=== PATIENT | female | born 1975 | race Caucasian/White ===

== ENCOUNTER 2022-11-23 21:02 | Emergency (ER) | payer MEDICAID, SELFPAY ==
[2022-11-23 21:03] VITALS: BP 131/99; PULSE 82; RESP 16; TEMP 36.6; O2SAT 99; BMI 27.0
--- NOTE | 2022-11-23 21:17 | CT_ITS ---
INDICATION: right sided abd pain EXAMINATION: CT Abdomen And Pelvis W/O Contrast Injection TECHNIQUE: Helically acquired images were obtained of the abdomen and pelvis without the use of IV contrast. A radiation dose optimization technique was used for this scan. Oral contrast: None. COMPARISON: None FINDINGS: Evaluation of the solid organs and vascular structures is limited without intravenous contrast. Visualized lung bases: Unremarkable Liver: Unremarkable Gallbladder: Few small intraluminal stones seen. Spleen: Unremarkable Pancreas: Unremarkable Adrenal Glands: Unremarkable Kidneys: Unremarkable Vasculature: Unremarkable GI Tract: Mild fat stranding surrounding the stomach. Lymphadenopathy: None Peritoneum: No ascites. Bladder: Unremarkable Reproductive organs: Unremarkable Bones/Soft tissues: Small fat-containing umbilical hernia. CT/Abdomen/Pelvis without Cont IMPRESSION: Findings could represent acute gastritis in the correct clinical setting. Cholelithiasis. Electronically Signed: Pranav Rodriguez MD at 22:07 EDT ,
--- NOTE | 2022-11-23 21:19 | EDS_ITS ---
HPI History of Present Illness Chief Complaint: Abd Pain Informant: patient Onset/Context/Timing Onset: - (Chronic pain, worse recently) Context: Gradual Onset Timing: Waxes and wanes Narrative Narrative: Patient presents secondary to right sided abdominal pain. She points to the right upper quadrant. She states she is had pain intermittently for years but recently has been getting worse. She feels like the area gets puffy. She reports a history of diabetes type 2 and follows with endocrinology at [facility]. She states that she is never had a work-up for her abdominal pain. She has had a prior hysterectomy. No other prior surgeries. No fever or chills. She states she is only able to eat small amounts at a time because she is worried about her blood sugar getting too high. [facility] Medical History Diabetes Home Medications dulaglutide 0.75 mg/0.5 mL subcutaneous pen injector (Trulicity) 0.75 mg subcut SA 11/23/22 [History Last Taken Unknown] insulin aspart U-100 100 unit/mL (3 mL) subcutaneous pen (Novolog FlexPen U-100 Insulin aspart) 2 unit subcut TID 11/23/22 [History Last Taken Unknown] insulin glargine 100 unit/mL (3 mL) subcutaneous pen (Lantus Solostar U-100 Insulin) 14 unit subcut QHS 11/23/22 [History Last Taken Unknown] metformin 500 mg tablet 1,000 mg PO BID 11/23/22 [History Last Taken Unknown] pantoprazole 40 mg tablet,delayed release (Protonix) 40 mg PO DAILY 4 weeks #28 tabs 11/23/22 [Rx Last Taken Unknown] Allergy/AdvReac Type Severity Reaction Status Date / Time No Known Allergies Allergy Verified 11/23/22 21:05 Surgical History History of hysterectomy Social History Smoking Status: Current some day smoker tobacco type: cigarettes and e- cigarettes ROS ROS ED Constitutional Constitutional ED: Denies chills or fever(s) Eyes Eyes: Denies change in vision or discharge from eye(s) ENT ENT ED: Denies discharge from eye(s), rhinorrhea or sore throat Cardiovascular Cardiovascular: Denies chest pain or palpitations Respiratory/Chest Respiratory/Chest: Denies cough or dyspnea Gastrointestinal Gastrointestinal: Reports abdominal pain and constipation; Denies diarrhea, nausea or vomiting Genitourinary Genitourinary ED: Denies dysuria Musculoskeletal Musculoskeletal: Denies back pain or extremity pain Integumentary Denies Abrasions or rash Neurologic Neurologic: Denies headache(s) or weakness Psychiatric Psychiatric: Denies anxiety or depression Allergic/Immunologic Allergic/Immunologic ED: Denies lip swelling or urticaria EXAM Physical Exam Const Vital Signs: 11/23/22 21:03 Temperature 97.8 F Temperature Source Temporal Pulse Rate 82 Respiratory Rate 16 Blood Pressure 131/99 H Blood Pressure Mean 109 Pulse Ox 99 Oxygen Delivery Method Room Air Positive well nourished and well developed General Appearance ED: well developed HEENT Reports normocephalic and head/scalp atraumatic Eyes PERRL and EOMs intact bilaterally Neck supple Chest Wall inspection of chest normal and palpation of chest normal Resp normal respiratory effort and clear to auscultation bilaterally Cardio regular rate and regular rhythm GI GI Narrative: Mild epigastric tenderness palpation. No guarding or rebound. Active bowel sounds noted throughout. Palpation: soft Extremity normal to inspection Neuro oriented x3 and no sensory deficits noted Sensorium / Orientation: alert Motor Exam: strength 5/5 throughout Psych mental status grossly normal Skin no rashes or lesions noted MDM MDM MDM Narrative Medical decision making narrative: Labwork obtained to evaluate for leukocytosis, anemia, and electrolyte derangement. CT scan of the abdomen pelvis obtained to evaluate for liver, gallbladder, colonic abnormality. Lab Data Attestation: I reviewed the patient's lab results. Labs: Laboratory Results - last 24 hr 11/23/22 11/23/22 11/23/22 21:20 21:20 21:20 WBC 7.7 RBC 4.43 Hgb 13.5 Hct 41.6 MCV 93.9 MCH 30.5 MCHC 32.5 RDW Std Deviation 45.4 H RDW Coeff of Azc 13.2 Plt Count 358 MPV 9.5 Immature Gran % (Auto) 0.100 Neut % (Auto) 53.8 Lymph % (Auto) 39.5 [place] % (Auto) 5.6 Eos % (Auto) 0.6 Baso % (Auto) 0.4 Absolute Neuts (auto) 4.2 Absolute Lymphs (auto) 3.05 Nucleated RBC % 0 Sodium 137 Potassium 4.5 Chloride 104 Carbon Dioxide 22.0 Anion Gap 11 BUN 10 Creatinine 0.68 Estim Creat Clear Calc 99.19 Est GFR (MDRD) Af Amer 119 Est GFR (MDRD) Non-Af 98 BUN/Creatinine Ratio 14.6 Glucose 105 Calcium 9.9 Total Bilirubin 0.40 Direct Bilirubin < 0.05 AST 22 ALT 17 Alkaline Phosphatase 36 L Total Protein 7.1 Albumin 3.6 Globulin 3.5 Lipase 38 Urine Color Straw Urine Clarity Clear Urine pH 7.0 Ur Specific [place] 1.005 Urine Protein Negative Urine Glucose (UA) Normal Urine Ketones Negative Urine Occult Blood Negative Urine Nitrite Negative Urine Bilirubin Negative Urine Urobilinogen Normal Ur Leukocyte Esterase Negative Urine RBC 0 SEEN Urine WBC 0 SEEN Ur Squamous Epith Cells 0-5 SEEN Urine Bacteria 0 SEEN Urine Mucus 0 SEEN Radiography Diagnostic Testing: Clinical Impression(s) from Imaging Studies Abdomen/Pelvis CT 11/23/22 21:17 IMPRESSION: Findings could represent acute gastritis in the correct clinical setting. Cholelithiasis. Electronically Signed: Pranav Rodriguez MD at 22:07 EDT , Differential Diagnosis Abdominal Pain: Cholecystitis Reason(s) Cholecystitis less likely: clinical exam does not support and other (Small gallstones noted on imaging studies but no evidence of inflammation.) and Pancreatitis Reason(s) Pancreatitis less likely: NL lab values Treatment and Re-Evaluation :: CBC and chemistry studies are unremarkable. LFTs are normal. Lipase is normal. Urinalysis reveals no evidence of acute infection. CT scan of the abdomen and pelvis reveals evidence of acute gastritis with inflammation around the stomach. Cholelithiasis noted without wall thickening or gallbladder inflammation. Repeat evaluation patient resting comfortably. Test results were discussed with her. She is not currently on any antacids. I will start her on Protonix and refer her to GI for follow-up. Discharge Plan Triage Chief Complaint: Abd Pain ED Provider: Vibha Hylton Dx/Rx/DC Orders Clinical Impression: Gastritis Instructions: ED Gastritis (Adult) Prescriptions: New pantoprazole [Protonix] 40 mg tablet,delayed release (DR/EC) 40 mg PO DAILY 28 Days Qty: 28 0RF No Action metformin 500 mg Tablet 1,000 mg PO BID insulin aspart U-100 [Novolog FlexPen U-100 Insulin] 100 unit/mL (3 mL) Insulin Pen 2 unit SUBCUT TID insulin glargine [Lantus Solostar U-100 Insulin] 100 unit/mL (3 mL) Insulin Pen 14 unit SUBCUT QHS Trulicity 0.75 mg/0.5 mL Pen Injector 0.75 mg SUBCUT SA Primary Care Provider: Care Physician,No Primary Referrals: Friend,William, DO [Med Staff - Active Staff] - As Needed NOT,DEFINED [Non-Staff] - Disposition Disposition: Home, Self Care
[2022-11-23 21:26] LABS: Bacteria 0 SEEN /hpf (None Seen); Mucous, Urine 0 SEEN /hpf (<or=2+); Red Blood Cells-Urine 0 SEEN /hpf (0-5); White Blood Cells 0 SEEN /hpf (0-5)
[2022-11-23 21:27] LABS: Absolute Lymphocyte Count 3.05 X10^3/uL (0.83-4.51); Absolute Neutrophil Count 4.2 X10^3/uL (2.0-7.7); Basophil# 0.03 X10^3/uL; Basophil% 0.4 % (0-1); Eosinophil# 0.05 X10^3/uL; Eosinophils% 0.6 % (0-5); Hematocrit 41.6 % (37-47); Hemoglobin 13.5 g/dL (12.0-15.0); Lymphocyte # 3.05 X10^3/ul (0.83-4.51); Lymphocyte % 39.5 % (19-41); Mean Corp Hgb Conc 32.5 g/dL (32-36); Mean Corpuscular Hgb 30.5 pg (27.0-32.0); Mean Corpuscular Volume 93.9 fL (81-99); Mean Platelet Vol. 9.5 fl (6.2-12.0); Monocyte# 0.43 X10^3/uL; Monocyte% 5.6 % (0-10); NRBC Flagged by Analyzer 0 % (0-5); Neutrophil # 4.16 X10^3/uL (2.7-7.7); Neutrophil % 53.8 % (47-70); Platelet Count 358 K/mm3 (150-450); RBC Distribution Width CV 13.2 % (11.6-14.6); RBC Distribution Width SD 45.4 fl (35.1-43.9); Red Blood Count 4.43 M/mm3 (4.2-5.4); White Blood Count 7.7 K/mm3 (4.4-11.0)
[2022-11-23 21:28] LABS: Color, Urine Straw (Yellow); Glucose, Dipstick Normal (Normal); Ketone-Dipstick Negative (Negative); Leukocyte Esterase-Dipstick Negative /ul (Negative); Nitrite-Dipstick Negative (Negative); Occult Blood-Urine Negative /ul (Negative); Protein-Dipstick Negative (Negative); Specific Gravity, Urine 1.005 (1.002-1.030); Urine Bilirubin Dipstick Negative (Negative); Urine Clarity Clear (Clear); Urine Urobilinogen Normal (Normal)
[2022-11-23 21:36] LABS: Squamous Epithelial Cells - UA 0-5 SEEN /hpf (5-10)
[2022-11-23] MEDS: 0.9% Normal Saline 1,000 ML 150 ML IV (21:36)
[2022-11-23 21:57] LABS: AST(SGOT) 22 U/L (15-37); Alanine Aminotransfer ALT/SGPT 17 U/L (13-56); Albumin, Serum 3.6 g/dL (3.2-5.0); Alkaline Phosphatase 36 U/L (45-117); Anion Gap 11 (5-15); BUN 10 mg/dL (7-18); BUN/Creat Ratio 14.6 RATIO (10-20); Bilirubin, Direct < 0.05 mg/dL (0.00-0.30); Calcium,Total 9.9 mg/dL (8.5-10.1); Chloride 104 mmol/L (98-107); Creatinine, Serum 0.68 mg/dL (0.55-1.02); EST Glomerular Filtration Rate 98 mL/min (>60); Est Glom Filt Rate - Afr Amer 119 mL/min (>60); Estimated Creatinine Clearance 99.19 ml/min; Globulin 3.5 g/dL (2.2-4.2); Glucose 105 mg/dL (74-106); Lipase 38 U/L (13-75); Potassium 4.5 mmol/L (3.5-5.1); Protein, Total 7.1 g/dL (6.4-8.2); Sodium Level 137 mmol/L (136-145)
[2022-11-23] MEDS: Pantoprazole Sodium 40 MG Tablet PO (22:43)
[2022-11-23 22:44] VITALS: BP 128/64; PULSE 88; RESP 16; TEMP 36.1; O2SAT 97
== END 2022-11-23 22:51 | disposition home or self-care (01) ==
PROVIDERS: Emergency Provider Emergency Medicine; Visit Provider Emergency Medicine
DX: K29.70 Gastritis, unspecified, without bleeding (principal); E11.9 Type 2 diabetes mellitus without complications; Z79.4 Long term (current) use of insulin; F17.210 Nicotine dependence, cigarettes, uncomplicated; G89.29 Other chronic pain; F17.290 Nicotine dependence, other tobacco product, uncomplicated; Z79.84 Long term (current) use of oral hypoglycemic drugs
CPT/HCPCS: 74176; 80048; 80076; 81001; 83690; 85025; 96360; 99283; J7030; A4216

== ENCOUNTER → 2023-01-01 | Outpatient (CLI) | payer MEDICAID, SELFPAY ==
--- NOTE | 2023-01-01 12:48 | NM_ITS ---
CLINICAL: 47-year-old female with history of clinical gastroparesis. SEMI-SOLID PHASE 99m Tc SULFUR COLLOID GASTRIC EMPTYING STUDY COMPARISON: None available FINDINGS: The patient was administered 1.0 mCi of 99m Tc sulfur colloid mixed with oatmeal and consumed per os. Image acquisitions in the anterior-posterior projections were obtained for 60 minutes. There is prompt visualization of the stomach. There is no gastroesophageal reflux identified. The T ? raw data emptying was calculated to be 41.34 minutes, (Normal: 12-56 minutes). NM/Gastric Emptying Study IMPRESSION: 1. NORMAL 99m Tc sulfur colloid semi-solid phase (oatmeal) gastric emptying imaging examination. A. There is normal and preserved semi-solid phase gastric emptying compared to normal controls with maintained first order kinetics throughout all components of the examination. (Yoni et al, J Nucl Med Tech 38: 186, 2010). Electronically Signed: Vince Vega, at 22:02 EDT ,
== END | disposition home or self-care (01) ==
LOC: NM 12:46
PROVIDERS: Referring Provider Internal Medicine Gastroenterology; Visit Provider Internal Medicine Gastroenterology
DX: R10.9 Unspecified abdominal pain (principal)
CPT/HCPCS: 78264; A9541

== ENCOUNTER 2023-02-10 10:50 | Day surgery (SDC) | payer MEDICAID, SELFPAY ==
[2023-02-10] VITALS (7 sets, daily range): BP systolic 77–105; BP diastolic 50–73; PULSE 63–83; RESP 16–18; TEMP 36.4–36.8; O2SAT 92–100; BMI 25.3
--- NOTE | 2023-02-10 | GASB_PTH ---
PATIENT: FIORDALIZA OLSEN LOC: EN U#:[id number] AGE/SX: 47/F ROOM: RE02/10/[address]: Dr. William Nixon DO : 1975 BED: DIS: 02/10/2023 SPEC #: [id number] RECD: 02/10/23 13:32 STATUS: JUANA VAL #: [id number] SUKH: 02/10/23 00:[address]: William Nixon DEPT: SURGICAL PATHOLOGY RECD BY: Ricki Lopes ENTERED: 02/10/23 13:32 SP TYPE: Gastric Bx OTHR DR: No Primary Care Phys Tissues: A - Duodenum, NOS B - Gastric mucous membrane Procedures: Surgery Specimen Level IV HEADER OPERATION: Colonoscopy, E[place] [place] biopsy PRE-OP DIAGNOSIS: Positive Cologuard TISSUE SUBMITTED: A - Duodenum biopsy, B - Gastric body biopsy MICROSCOPIC DIAGNOSIS A. Duodenum, biopsy: No pathologic change. B. Gastric body, biopsy: Chronic gastritis. See comment. AM:elida 02/11/2023 COMMENT B. The results of immunohistochemistry for Helicobacter pylori will be reported separately ([id number]). MICROSCOPIC DESCRIPTION Slides are reviewed. GROSS DESCRIPTION A - Received in fixative is one container labeled with the patient's name and designated duodenum biopsy. The specimen consists of one irregular fragment of light maya soft tissue that measures 0.3 x 0.3 x 0.1 cm. The specimen is totally submitted in one cassette. B - Received in fixative is one container labeled with the patient's name and designated gastric body biopsy. The specimen consists of multiple irregular fragments of light maya soft tissue that in aggregate measure 1.0 x 0.3 x 0.1 cm. The specimen is totally submitted in one cassette. / SJ:elida 02/10/2023 TC:3 CPT: 81503 x2
[2023-02-10] MEDS: Lactated Ringers 1,000 ML 15 ML IV (11:24)
--- NOTE | 2023-02-10 11:58 | PCM.HP.BLA ---
History and Physical Date of Admission: 02/10/23 47-year-old presented to emergency room secondary to right sided abdominal pain. She points to the right upper quadrant. She states she is had pain intermittently for years but recently has been getting worse. She feels like the area gets puffy. She reports a history of diabetes type 2 and follows with endocrinology at [facility]. She states that she is never had a work-up for her abdominal pain. She has had a prior hysterectomy. No other prior surgeries. No fever or chills. She states she is only able to eat small amounts at a time because she is worried about her blood sugar getting too high. [facility] Medical History Diabetes Home Medications dulaglutide 0.75 mg/0.5 mL subcutaneous pen injector (Trulicity) 0.75 mg subcut SA 11/23/22 [History Last Taken Unknown] insulin aspart U-100 100 unit/mL (3 mL) subcutaneous pen (Novolog FlexPen U-100 Insulin aspart) 2 unit subcut TID 11/23/22 [History Last Taken Unknown] insulin glargine 100 unit/mL (3 mL) subcutaneous pen (Lantus Solostar U-100 Insulin) 14 unit subcut QHS 11/23/22 [History Last Taken Unknown] metformin 500 mg tablet 1,000 mg PO BID 11/23/22 [History Last Taken Unknown] pantoprazole 40 mg tablet,delayed release (Protonix) 40 mg PO DAILY 4 weeks #28 tabs 11/23/22 [Rx Last Taken Unknown] Allergy/AdvReac Type Severity Reaction Status Date / Time No Known Allergies Allergy Verified 11/23/22 21:05 Surgical History History of hysterectomy Social History Smoking Status: Current some day smoker tobacco type: cigarettes and e-cigarettes ROS ROS ED Constitutional Constitutional ED: Denies chills or fever(s) Eyes Eyes: Denies change in vision or discharge from eye(s) ENT ENT ED: Denies discharge from eye(s), rhinorrhea or sore throat Cardiovascular Cardiovascular: Denies chest pain or palpitations Respiratory/Chest Respiratory/Chest: Denies cough or dyspnea Gastrointestinal Gastrointestinal: Reports abdominal pain and constipation; Denies diarrhea, nausea or vomiting Genitourinary Genitourinary ED: Denies dysuria Musculoskeletal Musculoskeletal: Denies back pain or extremity pain Integumentary Denies Abrasions or rash Neurologic Neurologic: Denies headache(s) or weakness Psychiatric Psychiatric: Denies anxiety or depression Allergic/Immunologic Allergic/Immunologic ED: Denies lip swelling or urticaria EXAM Physical Exam Const Vital Signs: 11/23/2320:03 Temperature 97.8 F Temperature Source Temporal Pulse Rate 82 Respiratory Rate 16 Blood Pressure 131/99 H Blood Pressure Mean 109 Pulse Ox 99 Oxygen Delivery Method Room Air Positive well nourished and well developed General Appearance ED: well developed HEENT Reports normocephalic and head/scalp atraumatic Eyes PERRL and EOMs intact bilaterally Neck supple Chest Wall inspection of chest normal and palpation of chest normal Resp normal respiratory effort and clear to auscultation bilaterally Cardio regular rate and regular rhythm GI GI Narrative: Mild epigastric tenderness palpation. No guarding or rebound. Active bowel sounds noted throughout. Palpation: soft Extremity normal to inspection Neuro oriented x3 and no sensory deficits noted Sensorium / Orientation: alert Motor Exam: strength 5/5 throughout Psych mental status grossly normal Skin no rashes or lesions noted MDM MDM MDM Narrative Medical decision making narrative: Labwork obtained to evaluate for leukocytosis, anemia, and electrolyte derangement. CT scan of the abdomen pelvis obtained to evaluate for liver, gallbladder, colonic abnormality. Lab Data Attestation: I reviewed the patient's lab results. Labs: Laboratory Results - last 24 hr 11/23/22 11/23/22 11/23/22 21:20 21:20 21:20 WBC 7.7 RBC 4.43 Hgb 13.5 Hct 41.6 MCV 93.9 MCH 30.5 MCHC 32.5 RDW Std Deviation 45.4 H RDW Coeff of Zac 13.2 Plt Count 358 MPV 9.5 Immature Gran % (Auto) 0.100 Neut % (Auto) 53.8 Lymph % (Auto) 39.5 Day % (Auto) 5.6 Eos % (Auto) 0.6 Baso % (Auto) 0.4 Absolute Neuts (auto) 4.2 Absolute Lymphs (auto) 3.05 Nucleated RBC % 0 Sodium 137 Potassium 4.5 Chloride 104 Carbon Dioxide 22.0 Anion Gap 11 BUN 10 Creatinine 0.68 Estim Creat Clear Calc 99.19 Est GFR (MDRD) Af Amer 119 Est GFR (MDRD) Non-Af 98 BUN/Creatinine Ratio 14.6 Glucose 105 Calcium 9.9 Total Bilirubin 0.40 Direct Bilirubin < 0.05 AST 22 ALT 17 Alkaline Phosphatase 36 L Total Protein 7.1 Albumin 3.6 Globulin 3.5 Lipase 38 Urine Color Straw Urine Clarity Clear Urine pH 7.0 Ur Specific [place] 1.005 Urine Protein Negative Urine Glucose (UA) Normal Urine Ketones Negative Urine Occult Blood Negative Urine Nitrite Negative Urine Bilirubin Negative Urine Urobilinogen Normal Ur Leukocyte Esterase Negative Urine RBC 0 SEEN Urine WBC 0 SEEN Ur Squamous Epith Cells 0-5 SEEN Urine Bacteria 0 SEEN Urine Mucus 0 SEEN Radiography Diagnostic Testing: Clinical Impression(s) from Imaging Studies Abdomen/Pelvis CT 11/23/22 21:17 IMPRESSION: Findings could represent acute gastritis in the correct clinical setting. Cholelithiasis. Electronically Signed: Pranav Rodriguez MD at 22:07 EDT , Differential Diagnosis Abdominal Pain: Cholecystitis Reason(s) Cholecystitis less likely: clinical exam does not support and other (Small gallstones noted on imaging studies but no evidence of inflammation.) and Pancreatitis Reason(s) Pancreatitis less likely: NL lab values Treatment and Re-Evaluation :: CBC and chemistry studies are unremarkable. LFTs are normal. Lipase is normal. Urinalysis reveals no evidence of acute infection. CT scan of the abdomen and pelvis reveals evidence of acute gastritis with inflammation around the stomach. Cholelithiasis noted without wall thickening or gallbladder inflammation. Repeat evaluation patient resting comfortably. Test results were discussed with her. She is not currently on any antacids. She presented to the office for follow-up of a starting Protonix. Her is a lot better however she presents today for work-up regarding gastritis. .Patient was explained Alternatives, risk, benefits including bleeding, infection, sepsis, perforation, need for emergent surgery and . She will have an ASA of 2.
--- NOTE | 2023-02-10 12:00 | IMM_PTH ---
PATIENT: FIORDALIZA OLSEN LOC: EN U#:[id number] AGE/SX: 47/F ROOM: RE02/10/[address]: Dr. William Nixon DO : 1975 BED: DIS: 02/10/2023 SPEC #: [id number] RECD: 02/10/23 13:48 STATUS: JUANA REKiran #: [id number] SUKH: 02/10/23 12:[address]: William Nixon DEPT: IMMUNOHISTOCHEMISTRY RECD BY: Kimmy Aguilar ENTERED: 02/10/23 13:49 SP TYPE: IMMUNO OT DR: No Primary Care Phys Tissues: B - Stomach, NOS Procedures: H Pylori (initial) PHYSICIAN & INSTITUTION [place] [id number] SPECIMEN INFORMATION: Tissue Source: B - Gastric body Clinical Info: Positive Cologuard test Specimen Number: [id number] CPT code: 45184 METHODOLOGY: Deparaffinized sections of prefer/formalin-fixed tissue or PAP/DQ stained slides are incubated with monoclonal/polyclonal antibodies/oligonucleotide probes. Localization is made via biotin free immunoperoxidase method. Appropriate controls are performed and reacted as expected. Results on target cell population are indicated in the following table: RESULTS: ANTIBODY / CLONE RESULT Block B H Pylori (polyclonal) negative These tests were developed and their performance characteristics determined by [facility]. They may not have been cleared or approved by the U.S. Food and Drug Administration. The FDA has determined that such clearance or approval is not necessary. The above immunohistochemical/dualISH markers are ordered and reviewed by the Pathologist. INTERPRETATION: B. Gastric body, biopsy: Negative for Helicobacter pylori organisms. AM:elida 02/12/2023
--- NOTE | 2023-02-10 12:46 | OP.CCLET_ITS ---
02/10/2023 No Primary Care Physician Re : Upper GI endoscopy procedure for Denise Mendez Dear Care Physician This procedure was performed on Friday, February 10, 2023. My impressions and recommendations are as follows: Impressions : - Normal esophagus. - Erythematous mucosa in the gastric body. Biopsied. - Erythematous duodenopathy. Biopsied. Recommendations : - Discharge patient to home. - Resume previous diet. - Continue present medications. - Await pathology results. - Repeat upper endoscopy for surveillance. My findings are described in the full procedure note, which is enclosed. If I can be of further assistance, please feel free to contact me at . Sincerely, William Nixon, 02/10/2023 12:45:39 PM This report has been signed electronically.
--- NOTE | 2023-02-10 12:46 | OP.EGD_ITS ---
Patient Name: Denise Mendez Procedure Date: 02/10/2023 12:10 PM Date of : 1975 Age: 47 Procedure: Upper GI endoscopy Indications: Epigastric abdominal pain Providers: William Nixon DO Medicines: Monitored Anesthesia Care Patient Profile: This is a 47 year old female. Refer to note in patient chart for documentation of history and physical. Patient has symptoms of chronic epigastric abdominal pain. Complications: No immediate complications. Procedure: Pre-Anesthesia Assessment: - Prior to the procedure, a History and Physical was performed, and patient medications and allergies were reviewed. The patient is competent. The risks and benefits of the procedure and the sedation options and risks were discussed with the patient. All questions were answered and informed consent was obtained. Patient identification and proposed procedure were verified by the physician in the pre-procedure area. Mental Status Examination: normal. Prophylactic Antibiotics: The patient does not require prophylactic antibiotics. Prior Anticoagulants: The patient has taken no previous anticoagulant or antiplatelet agents. ASA Grade Assessment: II - A patient with mild systemic disease. After reviewing the risks and benefits, the patient was deemed in satisfactory condition to undergo the procedure. The anesthesia plan was to use monitored anesthesia care (MAC). Immediately prior to administration of medications, the patient was re-assessed for adequacy to receive sedatives. The heart rate, respiratory rate, oxygen saturations, blood pressure, adequacy of pulmonary ventilation, and response to care were monitored throughout the procedure. The physical status of the patient was re-assessed after the procedure. After obtaining informed consent, the endoscope was passed under direct vision. Throughout the procedure, the patient's blood pressure, pulse, and oxygen saturations were monitored continuously. The Colonoscope was introduced through the mouth, and advanced to the second part of duodenum. The upper GI endoscopy was accomplished without difficulty. The patient tolerated the procedure well. Scope In: 12:15:14 PM Scope Out: 12:19:56 PM Total Procedure Duration Time 0 hours 4 minutes 42 seconds Findings: The examined esophagus was normal. Patchy mildly erythematous mucosa without bleeding was found in the gastric body. Biopsies were taken with a cold forceps for histology. Verification of patient identification for the specimen was done. Estimated blood loss was minimal. Patchy mildly erythematous mucosa without active bleeding and with no stigmata of bleeding was found in the duodenal bulb. Biopsies were taken with a cold forceps for histology. Verification of patient identification for the specimen was done. Estimated blood loss was minimal. Impression: - Normal esophagus. - Erythematous mucosa in the gastric body. Biopsied. - Erythematous duodenopathy. Biopsied. Recommendation: - Discharge patient to home. - Resume previous diet. - Continue present medications. - Await pathology results. - Repeat upper endoscopy for surveillance. Procedure Code(s): --- Professional --- 06883, Esophagogastroduodenoscopy, flexible, transoral; with biopsy, single or multiple CPT copyright 2017 [employer]. All rights reserved. The codes documented in this report are preliminary and upon math and sciences department chair review may be revised to meet current compliance requirements. William Nixon DO 02/10/2023 12:45:39 PM This report has been signed electronically. Number of Addenda: 0 Note Initiated On: 02/10/2023 12:10 PM
--- NOTE | 2023-02-10 12:48 | OP.COLON_ITS ---
Patient Name: Denise Mendez Procedure Date: 02/10/2023 12:20 PM Date of : 1975 Age: 47 Procedure: Colonoscopy Indications: Screening for colorectal malignant neoplasm Providers: William Nixon DO Medicines: Monitored Anesthesia Care Patient Profile: This is a 47 year old female. Refer to note in patient chart for documentation of history and physical. Patient has symptoms of chronic epigastric abdominal pain. Last Colonoscopy: none. The patient's first colonoscopy is today. Complications: No immediate complications. Procedure: Pre-Anesthesia Assessment: - Prior to the procedure, a History and Physical was performed, and patient medications and allergies were reviewed. The patient is competent. The risks and benefits of the procedure and the sedation options and risks were discussed with the patient. All questions were answered and informed consent was obtained. Patient identification and proposed procedure were verified by the physician in the pre-procedure area. Mental Status Examination: normal. Prophylactic Antibiotics: The patient does not require prophylactic antibiotics. Prior Anticoagulants: The patient has taken no previous anticoagulant or antiplatelet agents. ASA Grade Assessment: II - A patient with mild systemic disease. After reviewing the risks and benefits, the patient was deemed in satisfactory condition to undergo the procedure. The anesthesia plan was to use monitored anesthesia care (MAC). Immediately prior to administration of medications, the patient was re-assessed for adequacy to receive sedatives. The heart rate, respiratory rate, oxygen saturations, blood pressure, adequacy of pulmonary ventilation, and response to care were monitored throughout the procedure. The physical status of the patient was re-assessed after the procedure. After I obtained informed consent, the scope was passed under direct vision. Throughout the procedure, the patient's blood pressure, pulse, and oxygen saturations were monitored continuously. The Colonoscope was introduced through the anus and advanced to the cecum, identified by appendiceal orifice and ileocecal valve. The colonoscopy was performed without difficulty. The patient tolerated the procedure well. The quality of the bowel preparation was 90 percent obscured. Scope In: 12:22:52 PM Scope Withdrawal Time 0 hours 3 minutes 38 seconds Scope Out: 12:29:51 PM Total Procedure Duration Time 0 hours 6 minutes 59 seconds Findings: The perianal and digital rectal examinations were normal. Copious quantities of semi-liquid stool was found in the entire colon, precluding visualization. Lavage of the area was performed, resulting in incomplete clearance with continued poor visualization. Impression: - Stool in the entire examined colon. - No specimens collected. Recommendation: - Discharge patient to home. - Resume previous diet. - Continue present medications. - Repeat colonoscopy in 2 months because the bowel preparation was poor. Procedure Code(s): --- Professional --- G0121, Colorectal cancer screening; colonoscopy on individual not meeting criteria for high risk CPT copyright 2017 [employer]. All rights reserved. The codes documented in this report are preliminary and upon floor waxer review may be revised to meet current compliance requirements. William Nixon DO 02/10/2023 12:48:02 PM This report has been signed electronically. Number of Addenda: 0 Note Initiated On: 02/10/2023 12:20 PM
--- NOTE | 2023-02-10 12:48 | OP.CCLET_ITS ---
02/10/2023 No Primary Care Physician Re : Colonoscopy procedure for Denise Mendez Dear Care Physician This procedure was performed on Friday, February 10, 2023. My impressions and recommendations are as follows: Impressions : - Stool in the entire examined colon. - No specimens collected. Recommendations : - Discharge patient to home. - Resume previous diet. - Continue present medications. - Repeat colonoscopy in 2 months because the bowel preparation was poor. My findings are described in the full procedure note, which is enclosed. If I can be of further assistance, please feel free to contact me at . Sincerely, William Nixon, 02/10/2023 12:48:02 PM This report has been signed electronically.
== END 2023-02-10 13:35 | disposition home or self-care (01) ==
LOC: EN 10:52 → AC 10:54
PROVIDERS: Visit Provider Internal Medicine Gastroenterology
PROC: 0DJD8ZZ Inspection of Lower Intestinal Tract, Via Natural or Artificial Opening Endoscopic (ICD-10-PCS; CPT 45378; principal; 2023-02-10 11:55)
DX: Z12.11 Encounter for screening for malignant neoplasm of colon (principal); E11.9 Type 2 diabetes mellitus without complications; F17.210 Nicotine dependence, cigarettes, uncomplicated; F17.290 Nicotine dependence, other tobacco product, uncomplicated; K29.50 Unspecified chronic gastritis without bleeding; Z79.899 Other long term (current) drug therapy; Z79.85 Long-term (current) use of injectable non-insulin antidiabetic drugs; Z79.84 Long term (current) use of oral hypoglycemic drugs; J45.909 Unspecified asthma, uncomplicated; Z87.19 Personal history of other diseases of the digestive system
CPT/HCPCS: 43239; 45378; 88305; 88342; J7120; J2405

== ENCOUNTER → 2023-04-21 | Outpatient (CLI) | payer MEDICAID, SELFPAY ==
--- NOTE | 2023-04-21 15:00 | RAD_ITS ---
STUDY: X-RAY - ABDOMEN/PELVIS REASON FOR EXAM: Female, 47 years old. Constipation. TECHNIQUE: Single AP view of the abdomen / pelvis on 2 images. COMPARISON: None. FINDINGS: Lung bases not visualized. Normal bowel gas pattern with air seen to the rectosigmoid. No disproportionate dilatation of bowel. Moderate amount of feces in the colon. The visualized liver, spleen and kidneys are grossly normal in size and morphology. Normal soft tissue structures. Normal visualized osseous structures. RAD/Abdomen Single View IMPRESSION: Moderate amount of feces in the colon. No acute abnormality. Electronically Signed: Andres Vásquez MD at 9:58 EDT ,
== END | disposition home or self-care (01) ==
LOC: RAD 14:58
PROVIDERS: Referring Provider Internal Medicine Gastroenterology; Visit Provider Internal Medicine Gastroenterology
DX: K59.00 Constipation, unspecified (principal)
CPT/HCPCS: 74018

== ENCOUNTER 2023-05-28 05:17 | Day surgery (SDC) | payer MEDICAID, SELFPAY ==
[2023-05-28] VITALS (7 sets, daily range): BP systolic 101–116; BP diastolic 68–81; PULSE 68–77; RESP 16; TEMP 36.2–36.4; O2SAT 98–100; BMI 25.4
[2023-05-28] MEDS: Lactated Ringers 1,000 ML 15 ML IV (06:03)
[2023-05-28 06:25] LABS: Bedside Glucose 133 mg/dL (74-106)
--- NOTE | 2023-05-28 06:39 | HP.PCM_ITS ---
History and Physical Date of Admission: 05/28/23 FIORDALIZA CHILDERS, is a 47 F who presents to the office today for follow up. DMII ([facility]).? [facility] 11.23.22 for intermittent RUQ abdominal pain that has been present for years but has been getting worse with puffy feeling in the area. Imaging concerning for acute gastritis and cholelithiasis. Discharged with PPI.?Biochemical?CBC, CMP, LFT (AP L36), lipase without pertinent abnormality.?CT abd/pel without contrast?gallbladder stones; mild fat stranding surrounding stomach; umbilical hernia. ? *BGI established 12.10.22 abd pain has been present for ?a long while? which she ignored, pain continues, PPI continues. DMII and admits to constipation but is unable to give more details regarding this. 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 She currently resides ? Contact 12.16.22 Linzess not covered by insurance. Start lactulose.?Gastric emptying study 01.01.23?41.34 minutes, WNL.? Contact 01.05.23 with results, doing well overall with lactulose but continues to have periods without BM; continue lactulose as ordered, on days with no BM take a second dose 3-4 hours after the first.?EGD and colonoscopy 02.10.23?EGD gastritis; duodenitis.? Colonoscopy poor prep.? Contact 04.17.23 right sided pain with bloating; OK to increase lactulose. ?KUB 10.11.09?moderate colonic fecal burden.? OV 05.06.23 Pt unable to determine if Lactulose is helping bowels. Has been dealing with alot of stress related to her living situation. Does state that her bowels are abnormal. ROS Const Constitutional: No fatigue ENT ENT: No difficulty swallowing Gastro GI: Positive for abdominal pain, bloating, change in bowel habits, constipation, diarrhea and excessive flatus; No belching, change in stool character, coffee ground emesis, cramping, heartburn, difficulty swallowing, feeling full early, incontinent of stools, Vomiting blood/hematemesis, Blood in stool, loose stools, Black,tarry stools, nausea/dyspepsia, pain with swallowing, vomiting or other Musc Musculoskeletal: No joint pain Skin Skin: No yellowing of the eye or itchy eyes Psych Psychiatric: No anxiety and No depression Endo Endocrine: No fatigue Aller/Imm Allergy/Immunologic: No itchy eyes Danny/Lymp Hematologic/Lymphatic: No easy bleeding or easy bruising Exam Const General: cooperative and comfortable Nutritional Appearance: average body habitus and well nourished HENMT Head: normal to inspection Ears: hearing grossly normal bilaterally Nose: external nose normal Face and sinus: normal facial exam Mouth: oral mucosae normal Throat: posterior oropharynx normal Eyes General: appearance normal, both eyes and all related structures Neck Neck: normal visual inspection Chest Chest palpation & inspection: normal inspection of the chest and normal palpation of entire chest wall Resp Effort & Inspection: normal respiratory effort Auscultation: Bilateral: Clear to Auscultation Cardio Palpation: normal PMI Rate: regular rate Rhythm: regular rhythm GI Inspection: normal to inspection Auscultation: normal bowel sounds Percussion: normal to percussion Palpation: no hepatosplenomegaly Skin General: no rashes or lesions noted Neuro General: patient alert Extrem General: normal to inspection Psych Affect: normal affect Quality Reporting Tobacco Screening ([facility]) Smoking Status: Former smoker Assessment and Plan Assessment and Plan (1) Constipation: Status: Acute Qualifiers: Constipation type: slow transit constipation Qualified Code(s): K59.01 - Slow transit constipation Plan: Slow transit constipation in the setting of diabetes. She underwent a gastric emptying study and she had normal emptying. However her KUB and CT scan abdomen pelvis shows a dilated consistent with slow transit constipation. She has been responding to lactulose therapy. However it is causing her to have liquid stools. She underwent colonoscopy but she had a very poor prep we will not able to fully visualize the colon and small bowel. She will have a repeat colonoscopy with GoLytely prep and started on MiraLAX and hopefully we will going to give her more answers regarding her chronic idiopathic constipation that is exhibiting slow transit constipation. (2) Abdominal pain: Status: Chronic Qualifiers: Abdominal location: generalized Qualified Code(s): R10.84 - Generalized abdominal pain Plan: I think her abdominal pain and bloating is secondary to small bacterial overgrowth from diabetes mellitus and from taking a GLP-1 inhibitor. I will put her on doxycycline 100 mg twice a day for 1 month. Medications: New doxycycline hyclate 100 mg PO BID 60 caps 1RF I have examined the patient and the H&P has been reviewed. There are no clinical changes since date of exam.
--- NOTE | 2023-05-28 07:05 | OP.COLON_ITS ---
Patient Name: Denise Mendez Procedure Date: 05/28/2023 6:38 AM Date of : 1975 Age: 47 Procedure: Colonoscopy Indications: Abdominal pain in the right lower quadrant Providers: William Nixon DO Medicines: Monitored Anesthesia Care Patient Profile: This is a 47 year old female. Refer to note in patient chart for documentation of history and physical. Last Colonoscopy: within the past 3 months. Complications: No immediate complications. Procedure: Pre-Anesthesia Assessment: - Prior to the procedure, a History and Physical was performed, and patient medications and allergies were reviewed. The patient is competent. The risks and benefits of the procedure and the sedation options and risks were discussed with the patient. All questions were answered and informed consent was obtained. Patient identification and proposed procedure were verified by the physician. Mental Status Examination: alert and oriented. Airway Examination: normal oropharyngeal airway and neck mobility. Respiratory Examination: clear to auscultation. CV Examination: normal. Prophylactic Antibiotics: The patient does not require prophylactic antibiotics. Prior Anticoagulants: The patient has taken no anticoagulant or antiplatelet agents. ASA Grade Assessment: II - A patient with mild systemic disease. After reviewing the risks and benefits, the patient was deemed in satisfactory condition to undergo the procedure. The anesthesia plan was to use monitored anesthesia care (MAC). Immediately prior to administration of medications, the patient was re-assessed for adequacy to receive sedatives. The heart rate, respiratory rate, oxygen saturations, blood pressure, adequacy of pulmonary ventilation, and response to care were monitored throughout the procedure. The physical status of the patient was re-assessed after the procedure. After I obtained informed consent, the scope was passed under direct vision. Throughout the procedure, the patient's blood pressure, pulse, and oxygen saturations were monitored continuously. The Colonoscope was introduced through the anus and advanced to the cecum, identified by appendiceal orifice and ileocecal valve. The colonoscopy was performed without difficulty. The patient tolerated the procedure well. The quality of the bowel preparation was poor. The ileocecal valve, appendiceal orifice, and rectum were photographed. Scope In: 6:44:06 AM Scope Withdrawal Time 0 hours 7 minutes 9 seconds Scope Out: 6:55:54 AM Total Procedure Duration Time 0 hours 11 minutes 48 seconds Findings: The perianal and digital rectal examinations were normal. A large amount of stool was found in the entire colon, precluding visualization. No additional abnormalities were found on retroflexion. Impression: - Preparation of the colon was poor. - Stool in the entire examined colon. - No specimens collected. Recommendation: - Discharge patient to home. - Resume previous diet. - Continue present medications. - Await pathology results. - Repeat colonoscopy in 1 year because the bowel preparation was poor. Procedure Code(s): --- Professional --- 20419, Colonoscopy, flexible; diagnostic, including collection of specimen(s) by brushing or washing, when performed (separate procedure) CPT copyright 2021 [employer]. All rights reserved. The codes documented in this report are preliminary and upon back tender fourdrinier review may be revised to meet current compliance requirements. William Nixon DO 05/28/2023 7:04:39 AM This report has been signed electronically. Number of Addenda: 0 Note Initiated On: 05/28/2023 6:38 AM
--- NOTE | 2023-05-28 07:05 | OP.CCLET_ITS ---
05/28/2023 No Primary Care Physician Re : Colonoscopy procedure for Denise Mendez Dear Care Physician This procedure was performed on May. My impressions and recommendations are as follows: Impressions : - Preparation of the colon was poor. - Stool in the entire examined colon. - No specimens collected. Recommendations : - Discharge patient to home. - Resume previous diet. - Continue present medications. - Await pathology results. - Repeat colonoscopy in 1 year because the bowel preparation was poor. My findings are described in the full procedure note, which is enclosed. If I can be of further assistance, please feel free to contact me at . Sincerely, William Nixon, 05/28/2023 7:04:39 AM This report has been signed electronically.
== END 2023-05-28 07:46 | disposition home or self-care (01) ==
LOC: EN 05:24 → AC 05:25
PROVIDERS: Visit Provider Internal Medicine Gastroenterology
PROC: 0DJD8ZZ Inspection of Lower Intestinal Tract, Via Natural or Artificial Opening Endoscopic (ICD-10-PCS; CPT 45378; principal; 2023-05-28 06:25)
DX: K59.01 Slow transit constipation (principal); E11.9 Type 2 diabetes mellitus without complications; Z87.891 Personal history of nicotine dependence; Z79.84 Long term (current) use of oral hypoglycemic drugs; Z79.85 Long-term (current) use of injectable non-insulin antidiabetic drugs; Z79.899 Other long term (current) drug therapy; J45.909 Unspecified asthma, uncomplicated; K21.9 Gastro-esophageal reflux disease without esophagitis; Z87.19 Personal history of other diseases of the digestive system
CPT/HCPCS: 45378; 82962; J7120; J2405

== ENCOUNTER → 2023-08-06 | Outpatient (CLI) | payer MEDICAID, SELFPAY ==
--- NOTE | 2023-08-06 08:30 | US_ITS ---
INDICATION: Right upper quadrant pain EXAMINATION: Ultrasound US Abdomen Limited (quadrant) TECHNIQUE: Khan scale and color doppler imaging was performed of the right upper quadrant. COMPARISON: CT dated November 23, 2022 FINDINGS: LIVER: There is normal echotexture. No focal hepatic lesion. There is no free fluid. GALLBLADDER AND BILIARY TREE: There are gallstones and sludge within the gallbladder. No pericholecystic fluid or gallbladder wall thickening is demonstrated. The proximal common bile duct measures 4.3 mm, which is within normal limits for the patient''s age. Songraphic Archer''s sign: Negative. PANCREAS: The visualized head of the pancreas is within normal limits. There is nonvisualization of the body and tail the pancreas secondary to overlying bowel gas. RIGHT KIDNEY: The right kidney measures 9.8 cm in length. There is no hydronephrosis. There is a 1.0 x 1.1 x 1.1 cm simple right renal cyst. US/Liver IMPRESSION: Gallstones and sludge within the gallbladder with no associated gallbladder wall thickening, pericholecystic fluid nor reported positive sonographic Archer''s sign. Nonvisualization of the body and tail of the pancreas secondary to overlying bowel gas. Electronically Signed: Annemarie Queen MD at 12:54 EST ,
--- OUTSIDE RECORDS SUMMARY | 2023-08-06 08:53 | XMS RPT_ITS | CCD ---
Author Name Unknown Address [address] [place] [address] Organization [facility] Care Team Providers Care Consumer Advocate Name Role Phone Wesley Gary Primary Care Provider Haroldo Moses MD Unavailable Galo Quinones Primary Care Provider Wesley Gary MD Primary Care Provider Wesley Gary MD Primary Care Provider [phone] Unavailable Primary Care Provider Unavailabl ELLEN Escobedo Referring Unavailable System, Provider Not In Primary Care Provider System, Provider Not In Primary Care Provider SWAPNA HENRIQUEZ Attending Unavailable DANAE WALLS Attending Unavailable SWAPNA HENRIQUEZ Attending Unavailable Allergies Allergy Classification Reported Allergen(s) Allergy Type Date of Onset Reaction(s) Facility (5 sources) Seasonal allergy Propensity to adverse reactions to substance 6 Itching [place] (1 source) House dust mite; Translations: [DUST MITES] allergy to substance 0 [facility] Work Phone: (1 source) Kingdom Animalia; Translations: [ANIMALS] allergy to substance 0 [facility] Work Phone: (1 source) Mold Extract; Translations: [MOLD] Drug Allergy 0 [facility] Work Phone: (1 source) PLANT POLLENS; Translations: [PLANT POLLENS] allergy to substance 0 [facility] Work Phone: (6 sources) Other Propensity to adverse reactions 6 Itching [facility] Medications Current Medications Medication Drug Class(es) Dates Sig (Normalized) Sig (Original) [id number] 200 actuat albuterol 0.09 mg/actuat metered dose inhaler (11 sources) beta2-Adrenergic Agonist Start: 05-20-2022 End: 07-29-2023 take 2 puff(s) by inhalation every six hours as needed for wheezing albuterol 108 (90 Base) MCG/ACT inhaler Indications: Medication refill Inhale 2 puffs every 6 hours as needed for wheezing. 18 g 0 05/20/2022 07/29/2023 Active Completed/Discontinued Medications Medication Drug Class(es) Dates Sig (Normalized) Sig (Original) acetaminophen 500 mg oral tablet (2 sources) Start: 12-21-2020 End: 12-21-2020 acetaminophen (TYLENOL) tablet 1,000 mg Problems Active Problems Problem Classification Problem Date Documented Date Episodic/Chronic Chronic obstructive pulmonary disease and bronchiectasis (12 sources) Chronic obstructive lung disease; Translations: [Suspected respiratory disease] Onset: 06-06-2016 06-06-2016 Chronic Diabetes mellitus with complications (20 sources) Diabetic ketoacidosis without coma; Translations: [Type II diabetes mellitus uncontrolled] Onset: 04-21-2016 Resolved: 07-09-2019 07-09-2019 Chronic Diabetes mellitus without complication (10 sources) Type 2 diabetes mellitus; Translations: [Type 2 diabetes mellitus with ketoacidosis without coma] Onset: 07-05-2019 Resolved: 07-09-2019 07-09-2019 Chronic Disorders of lipid metabolism (2 sources) Hyperlipidemia, unspecified; Translations: [Hyperlipidemia, unspecified] Onset: 10-23-2022 Chronic Inflammation; infection of eye (except that caused by tuberculosis or sexually transmitteddisease) (3 sources) Allergic conjunctivitis; Translations: [Allergic conjunctivitis and rhinitis, bilateral] Onset: 06-07-2018 06-07-2018 Chronic Mood disorders (12 sources) Mood disorder; Translations: [Depressive disorder] Onset: 07-07-2019 07-07-2019 Chronic Nutritional deficiencies (11 sources) Nutritional marasmus; Translations: [Unspecified severe protein-calorie malnutrition] Onset: 07-09-2019 07-09-2019 Chronic Open wounds of extremities (1 source) Laceration of hand; Translations: [Laceration of left hand without foreign body, initial encounter] Episodic Other aftercare (3 sources) Patient encounter status; Translations: [Encounter for therapeutic drug level monitoring] Episodic Other connective tissue disease (1 source) Bilateral medial epicondylitis of elbows; Translations: [Medial epicondylitis, right elbow] Episodic Other lower respiratory disease (1 source) Cough; Translations: [Acute cough] Episodic Other upper respiratory infections (7 sources) Upper respiratory infection; Translations: [Acute upper respiratory infection, unspecified] Onset: 06-06-2016 Resolved: 04-15-2018 04-15-2018 Episodic Skin and subcutaneous tissue infections (2 sources) Paronychia of finger of right hand; Translations: [Paronychia of finger of right hand] Onset: 07-08-2019 07-08-2019 Unclassified (1 source) Acute cough; Translations: [Acute cough] Onset: 10-20-2022 Past or Other Problems Problem Classification Problem Date Documented Da te Episodic/Chronic Abdominal pain (1 source) Generalized abdominal pain Episodic Fluid and electrolyte disorders (5 sources) Lactic acidemia; Translations: [Acidosis] Onset: 07-05-2019 Resolved: 07-09-2019 07-09-2019 Episodic Inflammation; infection of eye (except that caused by tuberculosis or sexually transmitteddisease) (8 sources) Allergic conjunctivitis; Translations: [Acute atopic conjunctivitis, bilateral] Onset: 06-07-2018 06-07-2018 Episodic Nausea and vomiting (1 source) Intractable nausea and vomiting Episodic Other aftercare (2 sources) custodial (current) use of insulin; Translations: [long term care administrator (current) use of insulin (HCC)] Onset: 10-23-2022 Episodic Other aftercare (2 sources) Encounter for therapeutic drug level monitoring; Translations: [Encounter for therapeutic drug level monitoring] Onset: 10-23-2022 Episodic Other injuries and conditions due to external causes (5 sources) Hypothermia; Translations: [Hypothermia, initial encounter] Onset: 07-05-2019 Resolved: 07-09-2019 07-09-2019 Episodic Other non-traumatic joint disorders (5 sources) Knee pain; Translations: [Pain in left knee] Onset: 04-21-2016 04-21-2016 Episodic Other non-traumatic joint disorders (6 sources) Pain in left knee; Translations: [Pain in joint, lower leg] Onset: 04-21-2016 05-01-2022 Episodic Other screening for suspected conditions (not mental disorders or infectious disease) (5 sources) Serum/plasma protein finding; Translations: [Other specified abnormal findings of blood chemistry] Onset: 10-23-2022 Episodic Skin and subcutaneous tissue infections (10 sources) Onychia of finger; Translations: [Paronychia of finger of right hand] Onset: 07-08-2019 07-21-2019 Episodic Unclassified (1 source) Problem Results Test Name Value Interpretation Reference Range Facil ity Vital Signs Date Time Vital Sign Value Performing Clinician Facility 07-24-2023 12:59-0500 Body height 149.9 cm Swapna Henriquez APRN [employer] Work Phone: [facility] 07-24-2023 12:59-0500 Body mass index (BMI) [Ratio] 24.64 kg/m2 Swapna Henriquez QUALITY CONTROL REPRESENTATIVE - DIE TESTER Work Phone: [facility] 07-24-2023 12:59-0500 Body weight 55.34 kg Swapna Henriquez APRN - DIE TESTER Work Phone: [facility] 07-24-2023 12:59-0500 Diastolic blood pressure 80 mm[Hg] Swapna Craneett QUALITY CONTROL REPRESENTATIVE - DIE TESTER Work Phone: [facility] 07-24-2023 12:59-0500 Heart rate 83 /min Swapna Henriquez APRN - DIE TESTER Work Phone: [facility] 07-24-2023 12:59-0500 Systolic blood pressure 118 mm[Hg] Swapna [employer] QUALITY CONTROL REPRESENTATIVE - DIE TESTER Work Phone: [facility] 10-23-2022 14:20-0400 Body height 149.9 cm Swapna Henriquez APRN - DIE TESTER Work Phone: [facility] 10-23-2022 14:20-0400 Body mass index (BMI) [Ratio] 27.06 kg/m2 Swapna Craneett QUALITY CONTROL REPRESENTATIVE - DIE TESTER Work Phone: [facility] 10-23-2022 14:20-0400 Body weight 60.78 kg Swapna Patty QUALITY CONTROL REPRESENTATIVE - DIE TESTER Work Phone: [facility] 10-23-2022 14:20-0400 Diastolic blood pressure 86 mm[Hg] Swapna [place] QUALITY CONTROL REPRESENTATIVE - DIE TESTER Work Phone: [facility] 10-23-2022 14:20-0400 Heart rate 107 /min Swapna Patty QUALITY CONTROL REPRESENTATIVE - DIE TESTER Work Phone: [facility] 10-23-2022 14:20-0400 Systolic blood pressure 136 mm[Hg] Swapna Patty QUALITY CONTROL REPRESENTATIVE - DIE TESTER Work Phone: [facility] 10-20-2022 12:46-0400 Body temperature 99.3 [degF] Ellen Romero QUALITY CONTROL REPRESENTATIVE.DIE TESTER Work Phone: [facility] 10-20-2022 12:46-0400 Body weight 62.14 kg Ellen Romero QUALITY CONTROL REPRESENTATIVE.DIE TESTER Work Phone: [facility] 10-20-2022 12:46-0400 Diastolic blood pressure 86 mm[Hg] Ellen Romero QUALITY CONTROL REPRESENTATIVE.DIE TESTER Work Phone: [facility] 10-20-2022 12:46-0400 Heart rate 103 /min Ellen Romero QUALITY CONTROL REPRESENTATIVE.DIE TESTER Work Phone: [facility] 10-20-2022 12:46-0400 Respiratory rate 18 /min Ellen Romero QUALITY CONTROL REPRESENTATIVE.DIE TESTER Work Phone: [facility] 10-20-2022 12:46-0400 SaO2% (BldA) [Mass fraction] 98 % Ellen Romero QUALITY CONTROL REPRESENTATIVE.DIE TESTER Work Phone: [facility] 10-20-2022 12:46-0400 Systolic blood pressure 124 mm[Hg] Ellen Romero QUALITY CONTROL REPRESENTATIVE.DIE TESTER Work Phone: [facility] 09-17-2022 09:00-0500 Body temperature 98.4 [degF] Jayy Louis MD Work Phone: [facility] 09-17-2022 09:00-0500 Body weight 60.78 kg Jayy Louis MD Work Phone: [facility] 09-17-2022 09:00-0500 Diastolic blood pressure 80 mm[Hg] Jayy Louis MD Work Phone: [facility] 09-17-2022 09:00-0500 Heart rate 94 /min Jayy Louis MD Work Phone: [facility] 09-17-2022 09:00-0500 Respiratory rate 18 /min Jayy Louis MD Work Phone: [facility] 09-17-2022 09:00-0500 SaO2% (BldA) [Mass fraction] 96 % Jayy Louis MD Work Phone: [facility] 09-17-2022 09:00-0500 Systolic blood pressure 118 mm[Hg] Jayy Louis MD Work Phone: [facility] 12-21-2020 17:31-0400 Diastolic blood pressure 78 mm[Hg] Wesley Gary MD Work Phone: [facility] Work Phone: 12-21-2020 17:31-0400 Heart rate 66 /min Wesley Gary MD Work Phone: [facility] Work Phone: 12-21-2020 17:31-0400 Respiratory rate 15 /min Wesley Gary MD Work Phone: [facility] Work Phone: 12-21-2020 17:31-0400 SaO2% (BldA) [Mass fraction] 98 % Wesley Gary MD Work Phone: [facility] Work Phone: 12-21-2020 17:31-0400 Systolic blood pressure 108 mm[Hg] Wesley Gary MD Work Phone: [facility] Work Phone: 12-21-2020 16:27-0400 Body mass index (BMI) [Ratio] 30.3 kg/m2 Wesley Gary MD Work Phone: [facility] Work Phone: 12-21-2020 16:27-0400 Body temperature 97.81 [degF] Wesley Gary MD Work Phone: [facility] Work Phone: 12-21-2020 16:27-0400 Body weight 68.04 kg Wesley Gary MD [facility] Work Phone: 11-20-2019 17:33-0400 Body Temperature 97.81 [degF] [facility] [place] 11-20-2019 16:38-0400 BP Diastolic 83 mm[Hg] [facility] [place] 11-20-2019 16:38-0400 BP Systolic 115 mm[Hg] [facility] [place] 11-20-2019 16:38-0400 Pulse (Heart Rate) 97 /min [facility] [place] 11-20-2019 16:38-0400 Pulse Oximetry 94 % [facility] [place] 11-20-2019 16:38-0400 Respiratory Rate 18 /min [facility] [place] 11-20-2019 16:36-0400 BMI (Body Mass Index) 27.27 kg/m2 [facility] [place] 11-20-2019 16:36-0400 Body weight 61.24 kg [facility] [place] 11-20-2019 16:36-0400 Height 149.9 cm [place] 07-09-2019 11:11-0500 Body temperature 97.9 [degF] Jayy Rai MD Work Phone: [facility] Work Phone: 07-09-2019 11:11-0500 Diastolic blood pressure 71 mm[Hg] Jayy Rai MD Work Phone: [facility] Work Phone: 07-09-2019 11:11-0500 Heart rate 98 /min Jayy Rai MD Work Phone: [facility] Work Phone: 07-09-2019 11:11-0500 Respiratory rate 16 /min Jayy Rai MD Work Phone: [facility] Work Phone: 07-09-2019 11:11-0500 SaO2% (BldA) [Mass fraction] 96 % Jayy Rai MD Work Phone: [facility] Work Phone: 07-09-2019 11:11-0500 Systolic blood pressure 104 mm[Hg] Jayy Rai MD Work Phone: [facility] Work Phone: 07-09-2019 04:10-0500 Body mass index (BMI) [Ratio] 25.13 kg/m2 Jayy Rai MD Work Phone: [facility] Work Phone: 07-09-2019 04:10-0500 Body weight 56.43 kg Jayy Rai MD Work Phone: [facility] Work Phone: 07-05-2019 02:50-0500 Body height 149.9 cm Jayy Rai MD Work Phone: [facility] Work Phone: NEGATED: Highlighted [id number] 14:55-0500 BMI (Body Mass Index) 25.68 kg/m2 [facility] Work Phone: NEGATED: Highlighted [id number] 14:55-0500 Body weight 59.42 kg [facility] Work Phone: NEGATED: Highlighted [id number] 14:55-0500 Body weight 60 kg [facility] Work Phone: NEGATED: Highlighted [id number] 14:55-0500 BP Diastolic 70 mm[Hg] [facility] Work Phone: NEGATED: Highlighted [id number] 14:55-0500 BP Systolic 100 mm[Hg] [facility] Work Phone: NEGATED: Highlighted [id number] 14:55-0500 Height 152.4 cm [facility] Work Phone: NEGATED: Highlighted [id number] 14:55-0500 Height 152 cm [facility] Work Phone: NEGATED: Highlighted [id number] 14:55-0500 Pulse (Heart Rate) 106 /min Aimeeelsi Ron [facility] Work Phone: Encounters Encounter Date Encounter Type Care Provider Facility Start: 07-24-2023 End: 07-24-2023 ambulatory [facility] Start: 07-24-2023 End: 07-24-2023 Office outpatient visit 25 minutes Swapna [place] QUALITY CONTROL REPRESENTATIVE - DIE TESTER Work Phone: [facility] End[facility] Procedures Date Procedure Procedure Detail Performing Clinician Start: 07-24-2023 [facility] CONTROL REPRESENTATIVE - DIE TESTER Work Phone: Start: 10-23-2022 Hemoglobin glycosyla [facility]iman [facility] QUALITY CONTROL REPRESENTATIVE - DIE TESTER Work Phone: Start: 07-23-2022 Lipid 1996 panel - S rosa m or Plasma [facility] QUALITY CONTROL REPRESENTATIVE - DIE TESTER Work Phone: Start: 11-20-2019 Radex hand minimum 3 views Fanta Matthews Work Phone: Start: 07-21-2019 End: 07-21-2019 Blood pressure within normal parameters - no follow-up required Haroldo Moses MD Work Phone: Start: 07-21-2019 End: 07-21-2019 BMI documented as above normal parameters - follow-up documented Haroldo Moses MD Work Phone: Start: 07-21-2019 End: 07-21-2019 Documentation of current medications Haroldo Moses MD Work Phone: Start: 07-21-2019 End: 07-21-2019 Pain assessment documented as negative - follow-up not required Haroldo Moses MD Work Phone: Start: 07-21-2019 End: 07-21-2019 Tobacco non-user Haroldo Moses MD Work Phone: Start: 07-09-2019 Gluc bld gluc mntr d ev cleared fda spec home use Jovani Stevens MD Work Phone: Start: 07-09-2019 Gluc bld gluc mntr d ev cleared fda spec home use Jovani Stevens MD Work Phone: Start: 07-08-2019 Gluc bld gluc mntr d ev cleared fda spec home use Jovani Stevens MD Work Phone: Start: 07-08-2019 Gluc bld gluc mntr d ev cleared fda spec home use Jovani Stevens MD Work Phone: Start: 07-08-2019 Radex hand minimum 3 views Wesley Gary MD Work Phone: Start: 07-08-2019 Gluc bld gluc mntr d ev cleared fda spec home use Jovani Stevens MD Work Phone: Start: 07-08-2019 Gluc bld gluc mntr d ev cleared fda spec home use Jovani Stevens MD Work Phone: Start: 07-08-2019 Basic metabolic pane l calcium total Johana Luis Alberto PA-C Work Phone: Start: 07-08-2019 Hepatic function panel Roberta Deras PA-C Work Phone: Start: 07-07-2019 Gluc bld gluc mntr d ev cleared fda spec home use Jovani Stevens MD Work Phone: Start: 07-07-2019 Gluc bld gluc mntr d ev cleared fda spec home use Jovani Stevens MD Work Phone: Start: 07-07-2019 Gluc bld gluc mntr d ev cleared fda spec home use Jovani Stevens MD Work Phone: Start: 07-07-2019 Gluc bld gluc mntr d ev cleared fda spec home use Fab Swift MD Work Phone: Start: 07-07-2019 Calcium ionized Roberta Dodd Njus PA-C Work Phone: Start: 07-06-2019 Gluc bld gluc mntr d ev cleared fda spec home use Fab Swift MD Work Phone: Start: 07-06-2019 End: 07-06-2019 Basic metabolic panel calcium total Roberta Dodd Njus PA-C Work Phone: Start: 07-06-2019 Gluc bld gluc mntr d ev cleared fda spec home use Jayy Rai MD Work Phone: Start: 07-06-2019 End: 07-06-2019 Basic metabolic panel calcium total Roberta Dodd Njus PA-C Work Phone: Start: 07-06-2019 Hepatic function panel Roberta Dodd Njus PA-C Work Phone: Start: 07-06-2019 Gluc bld gluc mntr d ev cleared fda spec home use Jayy Rai MD Work Phone: Start: 07-06-2019 Basic metabolic pane l calcium total Roberta Dodd Njus PA-C Work Phone: Start: 07-06-2019 ADD ON LAB TEST Roberta Dodd Njus PA-C Work Phone: Start: 07-05-2019 Urnls dip stick/tabl et rgnt auto w/o microscopy Roberta Dodd Njus PA-C Work Phone: Start: 07-05-2019 Basic metabolic pane l calcium total Fab Swift MD Work Phone: Start: 07-05-2019 End: 07-05-2019 Basic metabolic panel calcium total Roberta Dodd Njus PA-C Work Phone: Start: 07-05-2019 Gluc bld gluc mntr d ev cleared fda spec home use Jayy Rai MD Work Phone: Start: 07-05-2019 POCT ARTERIAL Jayy hicks MD Work Phone: Start: 07-05-2019 Gluc bld gluc mntr d ev cleared fda spec home use Fab Swift MD Work Phone: Start: 07-05-2019 End: 07-05-2019 Basic metabolic panel calcium total Roberta Dodd Njus PA-C Work Phone: Start: 07-05-2019 POCT ARTERIAL Fab Swift MD Work Phone: Start: 07-05-2019 End: 07-05-2019 Gluc bld gluc mntr dev cleared fda spec home use Fab Swift MD Work Phone: Start: 07-05-2019 End: 07-05-2019 Culture bacterial quanttative colony count urine Fab Swift MD Work Phone: Start: 07-05-2019 Urnls dip stick/tabl et rgnt auto w/o microscopy Fab Swift MD Work Phone: Start: 07-05-2019 Gluc bld gluc mntr d ev cleared fda spec home use Fab Swift MD Work Phone: Start: 07-05-2019 Radiologic exam ches t single view Fab Swift MD Work Phone: Start: 07-05-2019 Gluc bld gluc mntr d ev cleared fda spec home use Jayy Rai MD Work Phone: Start: 07-05-2019 End: 07-05-2019 Basic metabolic panel calcium total Roberta Dodd Njus PA-C Work Phone: Start: 07-05-2019 Hepatic function panel Roberta Dodd Njus PA-C Work Phone: Start: 07-05-2019 End: 07-05-2019 Gluc bld gluc mntr dev cleared fda spec home use Jayy Rai MD Work Phone: Start: 07-05-2019 End: 07-05-2019 Assay of lactate Roberta Dodd Njus PA-C Work Phone: Start: 07-05-2019 POCT ARTERIAL Jayy hicks MD Work Phone: Start: 07-05-2019 RESPIRATORY CARE EVALUATION ONLY Roberta Dodd Njus PA-C Work Phone: Start: 07-05-2019 End: 07-05-2019 Basic metabolic panel calcium total Roberta Dodd Njus PA-C Work Phone: Start: 07-05-2019 POCT ARTERIAL Jayy hicks MD Work Phone: Start: 07-05-2019 End: 07-05-2019 Gluc bld gluc mntr dev cleared fda spec home use Jayy Rai MD Work Phone: Start: 07-04-2019 POCT VENOUS Jayy sidhu MD Work Phone: Start: 07-04-2019 End: 07-04-2019 Gluc bld gluc mntr dev cleared fda spec home use Jayy Rai MD Work Phone: Start: 07-04-2019 ADD ON LAB TEST Jayy Rai MD Work Phone: Start: 07-04-2019 CT ABDOMEN PELVIS W CONTRAST Jayy Rai MD Work Phone: Start: 07-04-2019 Drug screen class list a Jayy Rai MD Work Phone: Start: 07-04-2019 Urnls dip stick/tabl et rgnt auto w/o microscopy Jayy Rai MD Work Phone: Start: 07-04-2019 End: 07-04-2019 Basic metabolic panel calcium total Jayy Rai MD Work Phone: Start: 07-04-2019 Hepatic function panel Jayy Rai MD Work Phone: NEGATED: Highlighted rowStart: 07-21-2019 End: 07-21-2019 Documentation of current medications Aimee Ron Plan of Treatment Date Care Activity Detail Author Start: 2041 Pneumococcal 0-64 years Vaccine (2 of 2) Pneumococcal 0-64 years Vaccine (2 of 2) [facility] Work Phone: Start: 2041 Pneumococcal Vaccine: Pediatrics (0 to 5 Years) and At-Risk Patients (6 to 64 Years) (3 - PPSV23 if available, else PCV20) Pneumococcal Vaccine: Pediatrics (0 to 5 Years) and At-Risk Patients (6 to 64 Years) (3 - PPSV23 if available, else PCV20) [facility] Start: 2041 Pneumococcal Vaccine: Pediatrics (0 to 5 Years) and At-Risk Patients (6 to 64 Years) (3 of 3 - PPSV23 or PCV20) Pneumococcal Vaccine: Pediatrics (0 to 5 Years) and At-Risk Patients (6 to 64 Years) (3 of 3 - PPSV23 or PCV20) [facility] Start: 2036 RSV Immunization aged 60 or older (1 - 1-dose 60+ series) RSV Immunization aged 60 or older (1 - 1-dose 60+ series) [facility] Start: 11-19-2029 DTaP/Tdap/Td vaccine (3 - Td or Tdap) DTaP/Tdap/Td vaccine (3 - Td or Tdap) [facility] Work Phone: Start: 11-19-2029 DTaP/Tdap/Td vaccine (3 - Td) DTaP/Tdap/Td vaccine (3 - Td) [place] Start: 11-19-2029 DTaP/Tdap/Td Vaccines (3 - Td or Tdap) DTaP/Tdap/Td Vaccines (3 - Td or Tdap) [facility] Start: 07-23-2027 LIPID SCREEN LIPID SCREEN [facility] Start: 2026 Zoster Vaccines (1 of 2) Zoster Vaccines (1 of 2) [facility] Start: 04-21-2026 DTaP/Tdap/Td vaccine (2 - Td) DTaP/Tdap/Td vaccine (2 - Td) [place] Start: 07-23-2025 DIABETES SCREEN DIABETES SCREEN [facility] Start: 07-24-2024 Hemoglobin A1c measurement Diabetes: Hemoglobin A1C [facility] Start: 12-29-2023 End: 12-29-2023 Patient encounter procedure 12/29/2023 2:00 PM EDT Office Visit [facility] [address] [place] [id number] Danae Walls MD [address] [place] [address] [facility] Start: 09-25-2023 End: 09-25-2023 Patient encounter procedure 09/25/2023 1:00 PM EST Office Visit [facility] [address] [place] [id number] Swapna Henriquez, QUALITY CONTROL REPRESENTATIVE - DIE TESTER [address] [place] [address] [facility] Start: 07-23-2023 Lipid panel Lipid Panel [facility] Start: 07-23-2023 Urine screening for protein Diabetes: Urine Protein Screening [facility] Start: 07-18-2023 Diabetic foot examination Diabetes: Foot Exam [facility] Start: 03-27-2023 End: 03-27-2023 Patient encounter procedure [facility] Start: 03-20-2023 COVID-19 Vaccine ( season) COVID-19 Vaccine () [facility] Start: 03-20-2023 Influenza vaccination [facility] Start: 03-04-2023 End: 03-04-2023 Patient encounter procedure [facility] Start: 01-22-2023 Hemoglobin A1c measurement Diabetes: Hemoglobin A1C [facility] Start: 07-20-2022 DEPRESSION ASSESSMENT DEPRESSION ASSESSMENT [facility] Start: 03-20-2022 Influenza vaccination INFLUENZA (#1) [facility] Start: 10-31-2021 Diabetic microalbuminuria test Diabetic microalbuminuria test [facility] Work Phone: Start: 10-31-2021 Hemoglobin A1c measurement A1C test (Diabetic or Prediabetic) [facility] Work Phone: Start: 10-31-2021 Lipid panel Lipid screen [facility] Work Phone: Start: 2021 COLOGUARD (FIT-DNA) COLOGUARD (FIT-DNA) [facility] Start: 2021 Colonoscopy COLONOSCOPY [facility] Start: 2021 COLORECTAL CANCER SCREENING COLORECTAL CANCER SCREENING [facility] Start: [address] COLONOGRAPHY [facility] Start: 2021 FECAL OCCULT BLOOD FECAL OCCULT BLOOD [facility] Start: 2021 SIGMOIDOSCOPY SIGMOIDOSCOPY [facility] Start: 03-13-2021 End: 03-13-2021 Patient encounter procedure 03/13/2021 Office Visit Endocrinology Carmen Mackay, QUALITY CONTROL REPRESENTATIVE - DIE TESTER [address] [place] [address] [phone] [facility] [place] Start: 12-22-2020 COVID-19 VACCINE (3 - Booster for Pfizer series) COVID-19 VACCINE (3 - Booster for Pfizer series) [facility] Start: 10-26-2020 COVID-19 VACCINE (2 - Pfizer series) COVID-19 VACCINE (2 - Pfizer series) [facility] Start: 04-12-2020 End: 04-12-2020 Office Visit 04/12/2020 Office Visit Endocrinology Silvia Thomas MD [address] [place] [address] [phone] Endocrinology [facility] Start: 03-20-2020 Influenza vaccination Flu vaccine (Season Ended) [place], [place] Start: 12-30-2019 End: 12-30-2019 Office Visit 12/30/2019 Office Visit Family Medicine Wesley Gary MD [address] [place], [place] [phone] [facility] Start: 12-22-2019 Diabetic retinal exam Diabetic retinal exam [place], [place] Start: 10-04-2019 A1C test (Diabetic or Prediabetic) A1C test (Diabetic or Prediabetic) [facility] Work Phone: Start: 10-04-2019 HbA1c (Bld) [Mass fraction] A1C test (Diabetic or Prediabetic) [place], [place] Start: 07-21-2019 End: 07-21-2019 Appointment Appointment [facility] Work Phone: Start: 07-19-2019 End: 07-19-2019 Patient encounter procedure 07/19/2019 Office Visit Endocrinology Zahra Loyola, QUALITY CONTROL REPRESENTATIVE - DIE TESTER [address] [place] [address] [phone] [facility] Start: 06-07-2019 End: 06-07-2019 Office Visit 06/07/2019 Office Visit Endocrinology Zahra Loyola, QUALITY CONTROL REPRESENTATIVE - DIE TESTER [address] [place], [place] [address] [facility] Start: 05-25-2019 End: 05-25-2019 Office Visit 05/25/2019 Office Visit Family Medicine Lizzie Davey MD [address] [place] [address] [phone] [facility] Start: 03-30-2019 A1C test (Diabetic or Prediabetic) A1C test (Diabetic or Prediabetic) [place], [place] Start: 03-20-2019 Influenza vaccination Flu vaccine (#1) [place] Start: 07-09-2018 [object Object] Diabetic foot [place] Start: 07-09-2018 Diabetic foot examination Diabetic foot exam [place] Start: 06-23-2018 Diabetic microalbuminuria test Diabetic microalbuminuria [place] Start: 09-05-2016 Lipid panel Lipid [place] Start: 09-05-2016 Lipid screen [place] Start: 2016 Mammography MAMMOGRAM [facility] Start: 2016 Screening for malignant neoplasm of breast Mammogram [facility] Start: 06-28-2009 MMR Vaccines (1 of 1 - Standard series) MMR Vaccines (1 of 1 - Standard series) [facility] Start: 2006 HPV TESTING HPV TESTING [facility] Start: 1997 Cervical cancer screen Cervical cancer screen [place], [place] Start: 1997 PAP TESTING PAP TESTING [facility] Start: 1997 Screening for malignant neoplasm of cervix Cervical cancer screen [place] Start: 1995 Hepatitis B vaccine (1 of 3 - Risk 3-dose series) Hepatitis B vaccine (1 of 3 - Risk 3-dose series) [place] Start: 1995 Urine microalbumin profile DTAP,TDAP,TD (1 - Tdap) [facility] Start: 1994 HEPATITIS C SCREENING HEPATITIS C SCREENING [facility] Start: 1994 Hepatitis C screening Hepatitis C Screening [facility] Start: 1994 HIV SCREENING HIV SCREENING [facility] Start: 1991 HIV screen HIV screen [place] Start: 1991 HIV screening HIV screen [place] Start: 1988 Depression Screening Depression Screening [facility] Start: 1986 Glaucoma screening Diabetes: Retinopathy Screening [facility] Start: 1986 Preventive dental service Diabetes: Dental Exam [facility] Start: 1982 PNEUMOCOCCAL (1 - PCV) PNEUMOCOCCAL (1 - PCV) [facility] Start: 1977 MMR Vaccines (1 of 1 - Standard series) MMR Vaccines (1 of 1 - Standard series) [facility] Start: 1976 HEPATITIS B (1 of 3 - 3-dose series) HEPATITIS B (1 of 3 - 3-dose series) [facility] Start: 1976 Hepatitis B Vaccines (1 of 3 - 3-dose series) Hepatitis B Vaccines (1 of 3 - 3-dose series) [facility] Start: 1976 Hepatitis C screening Hepatitis C screen [facility] Work Phone: Start: 1976 HIV screening HIV Screening [facility] Start: 1976 Screening for malignant neoplasm of colon [facility] End: 07-04-2019 Add On Lab Test Add On Lab Test Lab Add-On One Time for 1 Occurrences starting 07/04/2019 until 07/04/2019 [facility] Work Phone: Immunizations Immunization Date Immunization Notes Care Provider Mg duncan 10-27-2020 Pfizer SARS-CoV-2 Vaccination Swapna Henriquez QUALITY CONTROL REPRESENTATIVE - DIE TESTER Work Phone: [facility] 10-05-2020 Pfizer SARS-CoV-2 Vaccination Swapna Henriquez QUALITY CONTROL REPRESENTATIVE - [facility] Work Phone: [facility] 04-09-2020 influenza, injectabl e, madin roni canine kidney, preservative free Wesley Gary MD Work Phone: [facility] Work Phone: 04-09-2020 influenza virus vaccine, unspecified formulation Swapna Henriquez [facility] Work Phone: [facility] 11-20-2019 diphtheria, tetanus toxoids and acellular pertussis vaccine, unspecified formulation [facility] , [place] 11-20-2019 tetanus toxoid, redu hortensia diphtheria toxoid, and acellular pertussis vaccine, adsorbed [facility] Work Phone: 06-01-2018 influenza, injectabl e, quadrivalent, preservative free [facility], [place] 06-01-2018 pneumococcal polysaccharide vaccine, 23 valent [facility] [place] 04-21-2016 pneumococcal conjuga te vaccine, 13 valent [facility] [place] 04-21-2016 tetanus toxoid, redu hortensia diphtheria toxoid, and acellular pertussis vaccine, adsorbed [facility] NEGATED: Highlighted row has not occurred!07-06-2019 influenza, injectable, quadrivalent, preservative free Jayy Rai MD Work Phone: [facility] Work Phone: Payers Date Payer Category Payer Medicaid [id number] 2015 Unknown xxxxxxxxxxxx [id number] 2015 Unknown [id number] 1. [id number] Social History Date Type Detail Facility Start: 11-29-2019 End: 09-17-2022 Tobacco smoking status NHIS Current every day smoker [facility] Work Phone: Start: 10-23-1995 End: 12-12-2015 [facility] of tobacco use [facility] Start: 11-29-2019 End: 03-27-2023 Cigarettes smoked current (pack per day) - Reported [facility] [place] Start: 11-29-2019 End: 07-24-2023 Alcohol intake Current drinker of alcohol (finding) [facility] [place] Start: 11-29-2019 History SDOH Alcohol Frequency 2 [place] Start: 11-29-2019 History SDOH Alcohol Std Drinks 1 [place] Start: 1976 Sex Assigned At Not on file [place] Exposure to SARS-CoV-2 (event) Unable to assess [place] Start: 07-04-2019 End: 11-20-2019 Alcohol intake Current non-drinker of alcohol (finding) [facility] Work Phone: Start: 05-20-2019 End: 07-18-2022 Tobacco smoking status ORIS Former smoker [facility] Start: 10-23-1995 End: 12-12-2015 History of tobacco use [facility] Start: 05-20-2019 End: 03-27-2023 Alcohol intake No [facility] [place] Start: 12-21-2020 End: 07-18-2022 Tobacco use and exposure Never used [facility] Start: 10-13-2022 End: 10-23-2022 Exposure to SARS-CoV-2 (event) Not sure [facility] NEGATED: Highlighted rowStart: 07-21-2019 End: 07-21-2019 Alcohol use Alcohol use [facility] Work Phone: NEGATED: Highlighted rowStart: 07-21-2019 End: 07-21-2019 Details of drug misuse behavior Details of drug misuse behavior [facility] Work Phone: NEGATED: Highlighted rowStart: 07-21-2019 End: 07-21-2019 Assertion Former smoker [facility] Work Phone: Medical Equipment Procedure Code Equipment Code Equipment Origin al Text Equipment Identifier Dates 1 EACH BY IN VIT RO ROUTE 4 TIMES DAILY [id number] Start: 10-18-2019 1 each by Does n ot apply route daily [id number] Start: 12-28-2018 USE FOUR TIMES A DAY. [id number] Start: 12-28-2018 1 each by Does n ot apply route 3 times daily [id number] Start: 12-28-2018 1 each by In Vit ro route 4 times daily [id number] Start: 12-28-2018 1 EACH BY IN VIT RO ROUTE 4 TIMES DAILY [id number] Start: 10-31-2020 1 each by Does n ot apply route daily [id number] Start: 10-31-2020 USE 4 X DAILY' [id number] Start: 10-31-2020 1 each by Does n ot apply route 3 times daily [id number] Start: 10-31-2020 USE FOUR TIMES D AILY AFTER MEALS AND AT BEDTIME [id number] Start: 07-18-2022 True Metrix Bloo d Glucose Test test strip [id number] Start: 07-10-2022 End: 07-24-2023 USE FOUR TIMES D AILY AFTER MEALS AND AT BEDTIME [id number] Start: 03-27-2023 As needed up to 3 times daily if kurt fails [id number] Start: 07-24-2023 Clinical Notes 07-09-2019 to 07-24-2023 COLTON Smith CNP - 07/24/2023 1:00 PM ESTTelephone Encounter - [place], [place] - 01/05/2023 2:04 PM EDTTelephone Encounter - [place], [place] - 01/05/2023 2:04 PM EDTPatient Instructions Note Date & Type Note Facility 07-24-2023 History of Presen t illness Narrative Images from the original note were not included. [facility] [address] [place] [address] Dept: [phone] Dept Loc: [phone] Visit type: Established patient Reason for Visit: Diabetes Mellitus (Follow up) Assessment and Plan 1. Type 2 diabetes mellitus with hyperglycemia, with long-term current use of insulin (HCC) - AMB POC HEMOGLOBIN A1C - Continuous Blood Gluc Sensor (FreeStyle Kurt 2 Sensor) misc; 1 Device every 14 (fourteen) days., Starting Thu07/24/2023, Normal - insulin lispro (HumaLOG) 100 UNIT/ML pen injection; 2 units before breakfast, 2 units before lunch, 4 units with dinner, Plus sliding scale 1 unit per 50>200, max daily dose 24 units, Normal - metFORMIN (Glucophage) 500 MG tablet; Take 1 tablet (500 mg) by mouth in the morning and 1 tablet (500 mg) in the evening. Take with meals., Starting Thu07/24/2023, Normal - insulin glargine (Lantus SoloStar) 100 UNIT/ML pen; ADMINISTER 12 UNITS UNDER THE SKIN EVERY NIGHT, Normal 2. Hyperlipidemia associated with type 2 diabetes mellitus (HCC) 3. Low serum C-peptide 4. Encounter for therapeutic drug monitoring Goal A1C = 7%. Diabetes is not stable Insulin is necessary for ongoing mgmt. - DM1 antibodies negative in 07/2022, low C-peptide - She will be following with Endocrinology in [facility] now on - A1C is a little worse 7.8%, Kurt shows TIR 60%, Consistent spikes after dinner. - Pt has lost 5 lbs since [place] - Pt will make the following changes to regimen: - Continue Lantus 12 at HS - Change Humalog to 2/2/4 units TID AC plus S.S. 1:50>200 - Continue Metformin 500 mg BID - Continue Trulicity 0.75 mg weekly - Will need to remain on at least basal insulin dt low c-peptide - Avoid increasing Trulicity due to ongoing constipation - Recommend kurt download as needed - Discussed A1C and BG goals - Encouraged lifestyle modifications of diet and exercise - Encouraged optimal foot care- follow with podiatry if needed - Encouraged following with ophthalmology - Patient counseled on the importance of taking medication as prescribed - Patient counseled on the effects of uncontrolled DM on other organ systems - Patient counseled on risk factors assoicated with diabetes - Patient counseled on detection and treatment of hypoglycemia - Patient instructed to call office if BG >250 or <70 consistently - Last chol panel was not at goal,statin restarted at [facility], pt has not gone for repeat labs - Pt counseled about these recommendations. Pt voiced understanding. Diagnostic data I reviewed: Outside Documentation: N/A Laboratory: Yes Radiographic: N/A Pt was advised of the results. [] Records from outside facility/PCP office to be requested. [x] Scripts sent to pharmacy of pt choice. Follow up for Will be trasitioning to new Endo, no follow up with us . Subjective HPI PCP = Provider Not In System Referring provider: PCP Initial [facility] Office visit: 12/2015 [place]: 03/27/23 DM Onset: 2003 Type of DM: 2 Labs in 07/2022- antibodies for DM1 negative, C-peptide low at 0.6 Hx of DKA x2 Since last office visit denies new health problems, denies hospitalizations, and denies surgeries. Pt feels their blood sugars are worse since [facility]. Pt complaints include: Will be switching to [facility], it is closer for her Has been following with GI, Had gastric emptying study that was normal Pt resides at a sober house, Called [facility] since 11/2021 Is at [facility] She is down 5 lbs since low Current DM Medications: Lantus 12 at HS Humalog (only take is over 150) plus S.S. 1:50>200 Metformin 500 mg BID Trulicity 0.75 mg weekly Taking Medications w/o Missed Doses: No -missing less insulin Pt c/o SEs from Medications at today's visit: No Pt voices concerns about cost of medications at today's visit: No Reports HGM via kurt Blood Sugar Log present: No Log Reviewed w/ pt: No Scanned into Media: No Hyperglycemia present: Yes Hypoglycemia present: Yes Following Diet for DM: Yes 3 melas per day Has been snacking Following Exercise Regimen: No None recently Previously Used DM Meds: Yes Metformin Lantus Novolog Humalog Complications: Cardiovascular -- No- denies Statin Use -- No- Atorvastatin was restarted Last ROMAINE/Retina Eval: due, [facility] [address] Retinopathy -- No Nephropathy -- No DA/ARB Use -- No Polyneuropathy -- No Obesity -- No Other --No Follows with GI- gall stones, constipation HX of pancreatitis: No Hx of MTC: No HX of gastroparesis: No HX of UTI/Mycotic infection: No Review of Systems Constitutional: Negative for activity change, appetite change and unexpected weight change. Gastrointestinal: Positive for constipation. Negative for diarrhea, nausea and vomiting. Endocrine: Positive for polydipsia, polyphagia and polyuria. Genitourinary: Negative for dysuria. Skin: Negative for color change, pallor and wound. Allergies Allergen Reactions Other Itching Outpatient Medications Prior to Visit Medication Sig Dispense Refill albuterol 108 (90 Base) MCG/ACT inhaler Inhale 2 puffs every 6 hours as needed for wheezing. 18 g 0 atorvastatin (Lipitor) 10 MG tablet Take 1 tablet (10 mg) by mouth daily. 90 tablet 1 dulaglutide (Trulicity) 0.75 MG/0.5ML solution pen-injector Inject 0.75 mg under the skin 1 (one) time per week. 12 mL 3 lactulose (Chronulac) 10 GM/15ML solution take 10g BY MOUTH DAILY pantoprazole (ProtoNix) 40 MG EC tablet Take 40 mg by mouth daily. Continuous Blood Gluc Sensor (FreeStyle Kurt 2 Sensor) misc 1 Device every 14 (fourteen) days. 3 each 3 insulin glargine (Lantus SoloStar) 100 UNIT/ML pen ADMINISTER 12 UNITS UNDER THE SKIN EVERY NIGHT 5 each 3 insulin lispro (HumaLOG) 100 UNIT/ML pen injection 2 units before breakfast, 2 units before lunch, 2 units with dinner, Plus sliding scale 1 unit per 50>200, max daily dose 25 units 15 mL 3 metFORMIN (Glucophage) 500 MG tablet Take 1 tablet (500 mg) by mouth in the morning and 1 tablet (500 mg) in the evening. Take with meals. 180 tablet 3 Blood Glucose Monitoring Suppl (True Metrix Meter) w/Device kit USE DAILY DIRECTED fluticasone (Flovent) 110 MCG/ACT inhaler Inhale 1 puff in the morning and 1 puff before bedtime. ibuprofen 800 MG tablet Take 400 mg by mouth every 6 hours as needed. loratadine (Claritin) 10 MG tablet Take 1 tablet by mouth in the morning. Sure Comfort Pen Pierz 32G X 4 MM misc USE FOUR TIMES DAILY AFTER MEALS AND AT BEDTIME (Patient not taking: Reported on 07/24/2023) 200 each 3 Symbicort 80-4.5 MCG/ACT inhaler venlafaxine XR (Effexor XR) 150 MG 24 hr capsule Take 150 mg by mouth every morning. Continuous Blood Gluc Sensor (FreeStyle Kurt 2 Sensor) misc 1 Device every 14 (fourteen) days. 3 each 3 True Metrix Blood Glucose Test test strip No facility-administered medications prior to visit. Past Medical History: Diagnosis Date Asthma Depression PTSD Diabetes (HCC) Headache Hyperlipidemia Social History Tobacco Use Smoking status: Former Packs/day: .25 Types: Cigarettes Start date: 10/23/1995 Quit date: 12/12/2015 Years since quittin.6 Smokeless tobacco: Never Substance Use Topics Alcohol use: Yes Alcohol/week: 0.0 standard drinks of alcohol Past Surgical History: Procedure Laterality Date HYSTERECTOMY Family History Problem Relation Name Age of Onset Diabetes Mother Other (63[address]) Father COPD Mental illness Mother Heart disease Father heart attack Diabetes Father Heart disease Paternal Grandfather Objective BP 118/80 Pulse 83 Ht 4' 11 (1.499 m) Wt 122 lb (55.3 kg) BMI 24.64 kg/m Physical Exam Vitals reviewed. Constitutional: Appearance: Normal appearance. HENT: Head: Normocephalic and atraumatic. Nose: Nose normal. Pulmonary: Effort: Pulmonary effort is normal. Skin: General: Skin is warm and dry. Neurological: General: No focal deficit present. Mental Status: She is alert and oriented to person, place, and time. Psychiatric: Mood and Affect: Mood normal. Behavior: Behavior normal. Thought Content: Thought content normal. Judgment: Judgment normal. Data Reviewed and Summarized Labs: Lab Results Component Value Date HGBA1C 7.8 (A) 07/24/2023 No components found for: EAG Chemistry Lab Results Component Value Date/Time NA 133 (L) 10/31/2020 1204 K 5.0 10/31/2020 1204 CL 101 10/31/2020 1204 CO2 26 07/23/2022 0902 BUN 17 07/23/2022 0902 CREATININE 0.65 07/23/2022 0902 Lab Results Component Value Date/Time CALCIUM 9.9 07/23/2022 0902 ALKPHOS 39 07/23/2022 0902 AST 13 07/23/2022 0902 ALT 8 07/23/2022 0902 BILITOT 0.5 07/23/2022 0902 Lab Results Component Value Date CHOL 234 (A) 10/31/2020 Lab Results Component Value Date TRIG 69 10/31/2020 Lab Results Component Value Date HDL 74 (H) 10/31/2020 No results found for: LDLCALC No results found for: VLDL Lab Results Component Value Date CHOLHDLRATIO 3 10/31/2020 Lab Results Component Value Date MICROALBUR <6.0 10/31/2020 Lab Results Component Value Date TSH 2.95 07/23/2022 Imaging/Testing: N/A Electronically signed COLTON Smith CNP 07/24/23 documented in this encounter [facility] 01-05-2023 Telephone encounter Note Rx pended 03/04/23 [facility] 01-05-2023 Miscellaneous Notes Rx pended 03/04/23 documented in this encounter [facility] 10-23-2022 History of Presen t illness Narrative Images from the original note were not included. [facility] [place] [address] [place] [address] Dept: [phone] Dept Loc: [phone] Visit type: Established patient Reason for Visit: Follow-up and Diabetes Mellitus Assessment and Plan 1. Type 2 diabetes mellitus with hyperglycemia, with long-term current use of insulin ([facility] ([facility]) - AMB POC HEMOGLOBIN A1C - metFORMIN (Glucophage) 500 MG tablet; Take 2 tablets (1,000 mg) by mouth in the morning and 2 tablets (1,000 mg) in the evening. Take with meals., Starting Chandrika 10/23/2022, Normal - insulin lispro (HumaLOG) 100 UNIT/ML injection; 2 units before breakfast, 2 units before lunch, 2 units with dinner, Plus sliding scale 1 unit per 50>200, max daily dose 25 units, Normal - insulin glargine (Lantus SoloStar) 100 UNIT/ML pen; ADMINISTER 14 UNITS UNDER THE SKIN EVERY NIGHT, Normal 2. Hyperlipidemia associated with type 2 diabetes mellitus (HCC) 3. Low serum C-peptide 4. Encounter for therapeutic drug monitoring Goal A1C = 7%. Diabetes is not stable Insulin is necessary for ongoing mgmt. - DM1 antibodies negative in 07/2022, low C-peptide - A1C is 8.3%, Kurt shows TIR 49%, some random lows. - Pt is on prednisone currently - Pt will make the following changes to regimen: - Decrease Lantus 14 at HS - Decrease Humalog 2 TID plus S.S. 1:50>200 - Continue Metformin 500 mg BID - Try Trulicity 0.75 weekly - Discussed possible SEs of GLP1 agonist therapy (including nausea, allergic rxn, injection site rxn, MTC and pancreatitis). Pt voiced understanding and wished to proceed with use. Pt was advised to call office if severe abd pain, N/V developed. - Will need to remain on at least basal insulin dt low c-peptide - Recommend FSBS to occur 4 times daily, be recorded, and send to office in 2 weeks for review. - Discussed A1C and BG goals - Encouraged lifestyle modifications of diet and exercise - Encouraged optimal foot care- follow with podiatry if needed - Encouraged following with ophthalmology - Patient counseled on the importance of taking medication as prescribed - Patient counseled on the effects of uncontrolled DM on other organ systems - Patient counseled on risk factors assoicated with diabetes - Patient counseled on detection and treatment of hypoglycemia - Patient instructed to call office if BG >250 or <70 consistently - Last chol panel was not at goal, pt not on satin, would like to hold off for now, discussed in depth - Pt counseled about these recommendations. Pt voiced understanding. Diagnostic data I reviewed: Outside Documentation: N/A Laboratory: Yes Radiographic: N/A Pt was advised of the results. [] Records from outside facility/PCP office to be requested. [x] Scripts sent to pharmacy of pt choice. Follow up for 4 months with me, 7-8 months with Titi . Subjective HPI PCP = Provider Not In System Referring provider: PCP Initial [facility] Office visit: 12/2015 [place]: 07/18/22 DM Onset: 2003 Type of DM: 2 Labs in 07/2022- antibodies for DM1 negative, C-peptide low at 0.6 Hx of DKA x2 Since last office visit denies new health problems, denies hospitalizations, and denies surgeries. Pt feels their blood sugars are worse since [place]. Pt complaints include: Pt resides at a sober house, Called [facility] since 11/2021 Is at [facility] Nurse administers her oral medications, Is on day 3 of 5 of prednisone She does her own insulin Is on kurt now, loves it Current DM Medications: Lantus 16 at HS Humalog (only take is over 150) plus S.S. 1:50>200 Metformin 500 mg BID Taking Medications w/o Missed Doses: No -missing less insulin Pt c/o SEs from Medications at today's visit: No Pt voices concerns about cost of medications at today's visit: No Reports HGM via kurt Blood Sugar Log present: No Log Reviewed w/ pt: No Scanned into Media: No Hyperglycemia present: Yes Hypoglycemia present: Yes Following Diet for DM: Yes 3 melas per day Has been snacking Following Exercise Regimen: No None recently Previously Used DM Meds: Yes Metformin Lantus Novolog Humalog Complications: Cardiovascular -- No- denies Statin Use -- No- Was on statin in the past Last ROMAINE/Retina Eval: up to date, [place] Retinopathy -- No Nephropathy -- No DA/ARB Use -- No Polyneuropathy -- No Obesity -- No Other --No HX of pancreatitis: No Hx of MTC: No HX of gastroparesis: No HX of UTI/Mycotic infection: No Review of Systems Constitutional: Negative for activity change, appetite change and unexpected weight change. Gastrointestinal: Positive for constipation. Negative for diarrhea, nausea and vomiting. Endocrine: Positive for polydipsia, polyphagia and polyuria. Genitourinary: Negative for dysuria. Skin: Negative for color change, pallor and wound. Allergies Allergen Reactions Other Itching Outpatient Medications Prior to Visit Medication Sig Dispense Refill albuterol 108 (90 Base) MCG/ACT inhaler Inhale 2 puffs every 6 hours as needed for wheezing. 18 g 0 Blood Glucose Monitoring Suppl (True Metrix Meter) w/Device kit USE DAILY DIRECTED Continuous Blood Gluc Sensor (FreeStyle Kurt 2 Sensor) mis 1 Device every 14 (fourteen) days. 3 each 3 ibuprofen 800 MG tablet Take 400 mg by mouth every 6 hours as needed. loratadine (Claritin) 10 MG tablet Take 1 tablet by mouth in the morning. Sure Comfort Pen Pierz 32G X 4 MM misc USE FOUR TIMES DAILY AFTER MEALS AND AT BEDTIME 200 each 3 Symbicort 80-4.5 MCG/ACT inhaler True Metrix Blood Glucose Test test strip insulin glargine (Lantus SoloStar) 100 UNIT/ML pen ADMINISTER 16 UNITS UNDER THE SKIN EVERY NIGHT 5 each 3 insulin lispro (HumaLOG) 100 UNIT/ML injection 3 units before breakfast, 2 units before lunch, 4 units with dinner, Plus sliding scale max daily dose 26 units 15 mL 3 metFORMIN (Glucophage) 500 MG tablet Take 2 tablets (1,000 mg) by mouth in the morning and 2 tablets (1,000 mg) in the evening. Take with meals. 360 tablet 3 fluticasone (Flovent) 110 MCG/ACT inhaler Inhale 1 puff in the morning and 1 puff before bedtime. PREDNISONE PO Take by mouth. Take it for 5 days venlafaxine XR (Effexor XR) 150 MG 24 hr capsule Take 150 mg by mouth every morning. No facility-administered medications prior to visit. Past Medical History: Diagnosis Date Asthma Depression PTSD Diabetes (HCC) Headache Hyperlipidemia Social History Tobacco Use Smoking status: Former Packs/day: 0.25 Types: Cigarettes Start date: 10/23/1995 Quit date: 12/12/2015 Years since quittin.8 Smokeless tobacco: Never Substance Use Topics Alcohol use: Yes Alcohol/week: 0.0 standard drinks Past Surgical History: Procedure Laterality Date HYSTERECTOMY Family History Problem Relation Name Age of Onset Diabetes Mother Other (14846) Father COPD Mental illness Mother Heart disease Father heart attack Diabetes Father Heart disease Paternal Grandfather Objective BP 136/86 (BP Location: Right arm, Patient Position: Sitting) Pulse 107 Ht 4' 11 (1.499 m) Wt 134 lb (60.8 kg) BMI 27.06 kg/m Physical Exam Vitals reviewed. Constitutional: Appearance: Normal appearance. HENT: Head: Normocephalic and atraumatic. Nose: Nose normal. Pulmonary: Effort: Pulmonary effort is normal. Skin: General: Skin is warm and dry. Neurological: General: No focal deficit present. Mental Status: She is alert and oriented to person, place, and time. Comments: DM Foot Examination: Monofilament Sensation --- Normal Lesion(s) ---right lower extremity, scattered scratches, no redness Callus Formation: absent Cyanosis --- absent Pulses --- present Psychiatric: Mood and Affect: Mood normal. Behavior: Behavior normal. Thought Content: Thought content normal. Judgment: Judgment normal. Data Reviewed and Summarized Labs: Lab Results Component Value Date HGBA1C 8.3 (A) 10/23/2022 No components found for: EAG Chemistry Lab Results Component Value Date/Time NA 133 (L) 10/31/2020 1204 K 5.0 10/31/2020 1204 CL 101 10/31/2020 1204 CO2 26 07/23/2022 0902 BUN 17 07/23/2022 0902 CREATININE 0.65 07/23/2022 0902 Lab Results Component Value Date/Time CALCIUM 9.9 07/23/2022 0902 ALKPHOS 39 07/23/2022 0902 AST 13 07/23/2022 0902 ALT 8 07/23/2022 0902 BILITOT 0.5 07/23/2022 0902 Lab Results Component Value Date CHOL 234 (A) 10/31/2020 Lab Results Component Value Date TRIG 69 10/31/2020 Lab Results Component Value Date HDL 74 (H) 10/31/2020 No results found for: LDLCALC No results found for: VLDL Lab Results Component Value Date CHOLHDLRATIO 3 10/31/2020 Lab Results Component Value Date MICROALBUR <6.0 10/31/2020 Lab Results Component Value Date TSH 2.95 07/23/2022 Imaging/Testing: N/A Electronically signed COLTON Smith CNP 10/23/22 documented in this encounter [facility] 10-20-2022 Note HNO ID: [id number] Author: RT Julius(R) Service: Nuclear Medicine Author Type: Technologist Type: Progress Notes Filed: 10/20/2022 1:03 PM Note Text: Radiology Service Progress Note PATIENT NAME: Denise Mendez DATE OF SERVICE: October 20, 2022 TIME: 12:57 PM PATIENT IDENTITY VERIFICATION COMPLETED USING TWO (2) IDENTIFIERS: Name and Date of confirmed by patient verbally. FALL SCREENING: Has the patient had 2 falls in the last year or 1 fall with injury or currently using an Ambulatory Assistive Device (Walker, Cane, Wheelchair, Crutches, etc.)? No PATIENT GENDER DATA: Female. status: : No status: NO. PATIENT RELEVANT IMPLANT DATA REVIEWED: Not Applicable RADIOLOGY DEPARTMENT: General X-ray: Exam(s) Completed: Chest X-Ray PERIPHERAL IV DATA: Not applicable SIGNED BY: RT Julius(R) October 20, 2022 12:57 PM [facility] 10-20-2022 Note HNO ID: [id number] Author: Ellen Romero APRN.DIE TESTER Service: ? Author Type: Nurse Practitioner Type: Progress Notes Filed: 10/20/2022 1:44 PM Note Text: This note was created using NoteWriter. Subjective Denise Mendez is a 47 year old female. 47 year old female with PMH asthma, DM (on Metformin and sliding scale ProPen, sees her chip person this ) Acute onset one month ago. + cough +congestion +wheezing +chest tightness States history of asthma and they told me probably early COPD States she used to be on Symbicort, but has not been on for quite some time. Seen here September 17. Diagnosed with URI COVID negative RX Doxdebra and Gume Gilbert States she felt better for a couple days. Endorses the symptoms have Endorses she quit vaping 3 days ago. Mohan told me to, so I did Denies CP. Denies hemoptysis Denies fever or chills. 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 No russian language instructor was used. Cough This is a recurrent problem. The current episode started more than 1 week ago. The problem occurs constantly. The problem has not changed since onset.The cough is Productive of sputum. There has been no fever. Associated symptoms include shortness of breath and wheezing. Pertinent negatives include no chest pain, no chills, no sweats, no weight loss, no ear congestion, no ear pain, no headaches, no rhinorrhea, no sore throat, no myalgias and no eye redness. Treatments tried: ATB. The treatment provided mild relief. Smoker: quit 3 days ago. Her past medical history is significant for COPD and asthma. Her past medical history does not include bronchitis, pneumonia, bronchiectasis or emphysema. PAST MEDICAL HISTORY Diagnosis Date Diabetes mellitus type 2 (HCC) Hx of tobacco use, presenting hazards to health Hx reactive airway Hyperlipidemia No past surgical history on file. ALLERGIES Patient has no known allergies. MEDICATIONS budesonide-formoterol (SYMBICORT) 80-4.5 mcg/actuation inhaler Inhale 2 Puffs as instructed twice daily. methylPREDNISolone (MEDROL, ELOY,) 4 mg Dose-Pack Follow dosing instructions, take with food. fluticasone (FLONASE) 50 mcg/actuation nasal spray Use 2 Sprays in each nostril once daily. Rinse mouth after use. metFORMIN (GLUCOPHAGE) 500 mg tablet Take 1,000 mg by mouth. venlafaxine ER (EFFEXOR XR) 150 mg 24 hr capsule Take 150 mg by mouth. insulin lispro (HUMALOG KWIKPEN) 100 unit/mL 3 units before breakfast, 2 units before lunch, 4 units with dinner, Plus sliding scale max daily dose 26 units insulin glargine (LANTUS SOLOSTAR, BASAGLAR KWIKPEN) 100 unit/mL (3 mL) ADMINISTER 16 UNITS UNDER THE SKIN EVERY NIGHT albuterol HFA (PROVENTIL HFA, VENTOLIN HFA) 90 mcg/actuation inhaler Inhale 2 Puffs as instructed every 6 hours as needed. No family history on file. Social History Tobacco Use Smoking status: Every Day Types: Cigarettes Smokeless tobacco: Never Review of Systems Constitutional: Negative for chills, fatigue, fever and weight loss. HENT: Positive for congestion. Negative for ear pain, rhinorrhea and sore throat. Eyes: Negative for pain, discharge, redness and itching. Respiratory: Positive for cough, chest tightness, shortness of breath and wheezing. Cardiovascular: Negative for chest pain. Gastrointestinal: Negative for abdominal pain, diarrhea, nausea and vomiting. Musculoskeletal: Negative for arthralgias, back pain, gait problem and myalgias. Skin: Negative for color change, pallor, rash and wound. Allergic/Immunologic: Positive for environmental allergies and immunocompromised state. Negative for food allergies. Neurological: Negative for headaches. Hematological: Negative for adenopathy. Does not bruise/bleed easily. Psychiatric/Behavioral: Negative for agitation and behavioral problems. Objective BP 124/86 Pulse 103 Temp 37.4 ?C (99.3 ?F) Resp 18 Wt 62.1 kg (137 lb) SpO2 98% Physical Exam Vitals and nursing note reviewed. Constitutional: General: She is not in acute distress. Appearance: Normal appearance. She is normal weight. She is not ill-appearing, toxic-appearing or diaphoretic. HENT: Head: Normocephalic and atraumatic. Right Ear: Ear canal and external ear normal. Left Ear: Ear canal and external ear normal. Nose: Nose normal. No congestion or rhinorrhea. Mouth/Throat: Mouth: Mucous membranes are moist. Pharynx: No oropharyngeal exudate or posterior oropharyngeal erythema. Eyes: General: Right eye: No discharge. Left eye: No discharge. Extraocular Movements: Extraocular movements intact. Conjunctiva/sclera: Conjunctivae normal. Pupils: Pupils are equal, round, and reactive to light. Cardiovascular: Rate and Rhythm: Normal rate and regular rhythm. Pulses: Normal pulses. Heart sounds: Normal heart sounds. No murmur heard. No friction rub. Pulmonary: Effort: Pulmonary e (more content not included)... [facility] 10-20-2022 Instructions Ellen Romero APRN.[facility] - 10/20/2022 1:20 PM EDT COUGH: Your doctor wants you to have this information about coughing. The body has a cough reflex which helps expel mucous secretions and irritants from the lung and airway passages. Cough spasms are periods of continuous coughing lasting several minutes. Most coughs is caused by virus infections which may last for up to 2-3 weeks. Coughing helps to protect the lung from pneumonia. A persistent cough lasting longer than 4-6 weeks requires medical evaluation by your primary care doctor. Treatment of cough includes measures to loosen the cough and thin the mucous. Warm liquids, cough drops, and nonprescription cough medicine may help reduce dry hacking cough. Use a humidifier if necessary as dry air can make coughs worse. Ultrasonic humidifiers are especially useful as they kill molds and many bacteria. Some cough medicines have antihistamines, decongestants, or alcohol in them; there is no proof that any of these help control cough. Prescription cough medicine or those with dextromethorphan (DM) should be reserved for dry coughs that prevent sleep or cause spasms or chest pain. Avoid any exposure to cigarette smoke as this will worsen the cough or make it last much longer. Call your doctor right away if you or your child have increased breathing difficulty, a high fever, a cough that lasts longer than 3 weeks, or other serious complaints. documented in this encounter [facility] 10-20-2022 History of Presen t illness Narrative This note was created using SkimaTalkriter. Subjective Denisesanto Mendez is a 47 year old female. 47 year old female with PMH asthma, DM (on Metformin and sliding scale ProPen, sees her chip person this ) Acute onset one month ago. + cough +congestion +wheezing +chest tightness States history of asthma and they told me probably early COPD States she used to be on Symbicort, but has not been on for quite some time. Seen here September 17. Diagnosed with URI COVID negative RX Max and Gume Gilbert States she felt better for a couple days. Endorses the symptoms have Endorses she quit vaping 3 days ago. Mohan told me to, so I did Denies CP. Denies hemoptysis Denies fever or chills. 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 No russian language instructor was used. Cough This is a recurrent problem. The current episode started more than 1 week ago. The problem occurs constantly. The problem has not changed since onset.The cough is Productive of sputum. There has been no fever. Associated symptoms include shortness of breath and wheezing. Pertinent negatives include no chest pain, no chills, no sweats, no weight loss, no ear congestion, no ear pain, no headaches, no rhinorrhea, no sore throat, no myalgias and no eye redness. Treatments tried: ATB. The treatment provided mild relief. Smoker: quit 3 days ago. Her past medical history is significant for COPD and asthma. Her past medical history does not include bronchitis, pneumonia, bronchiectasis or emphysema. PAST MEDICAL HISTORY Diagnosis Date Diabetes mellitus type 2 (HCC) Hx of tobacco use, presenting hazards to health Hx reactive airway Hyperlipidemia No past surgical history on file. ALLERGIES Patient has no known allergies. MEDICATIONS budesonide-formoterol (SYMBICORT) 80-4.5 mcg/actuation inhaler Inhale 2 Puffs as instructed twice daily. methylPREDNISolone (MEDROL, ELOY,) 4 mg Dose-Pack Follow dosing instructions, take with food. fluticasone (FLONASE) 50 mcg/actuation nasal spray Use 2 Sprays in each nostril once daily. Rinse mouth after use. metFORMIN (GLUCOPHAGE) 500 mg tablet Take 1,000 mg by mouth. venlafaxine ER (EFFEXOR XR) 150 mg 24 hr capsule Take 150 mg by mouth. insulin lispro (HUMALOG KWIKPEN) 100 unit/mL 3 units before breakfast, 2 units before lunch, 4 units with dinner, Plus sliding scale max daily dose 26 units insulin glargine (LANTUS SOLOSTAR, BASAGLAR KWIKPEN) 100 unit/mL (3 mL) ADMINISTER 16 UNITS UNDER THE SKIN EVERY NIGHT albuterol HFA (PROVENTIL HFA, VENTOLIN HFA) 90 mcg/actuation inhaler Inhale 2 Puffs as instructed every 6 hours as needed. No family history on file. Social History Tobacco Use Smoking status: Every Day Types: Cigarettes Smokeless tobacco: Never Review of Systems Constitutional: Negative for chills, fatigue, fever and weight loss. HENT: Positive for congestion. Negative for ear pain, rhinorrhea and sore throat. Eyes: Negative for pain, discharge, redness and itching. Respiratory: Positive for cough, chest tightness, shortness of breath and wheezing. Cardiovascular: Negative for chest pain. Gastrointestinal: Negative for abdominal pain, diarrhea, nausea and vomiting. Musculoskeletal: Negative for arthralgias, back pain, gait problem and myalgias. Skin: Negative for color change, pallor, rash and wound. Allergic/Immunologic: Positive for environmental allergies and immunocompromised state. Negative for food allergies. Neurological: Negative for headaches. Hematological: Negative for adenopathy. Does not bruise/bleed easily. Psychiatric/Behavioral: Negative for agitation and behavioral problems. Objective BP 124/86 Pulse 103 Temp 37.4 C (99.3 F) Resp 18 Wt 62.1 kg (137 lb) SpO2 98% Physical Exam Vitals and nursing note reviewed. Constitutional: General: She is not in acute distress. Appearance: Normal appearance. She is normal weight. She is not ill-appearing, toxic-appearing or diaphoretic. HENT: Head: Normocephalic and atraumatic. Right Ear: Ear canal and external ear normal. Left Ear: Ear canal and external ear normal. Nose: Nose normal. No congestion or rhinorrhea. Mouth/Throat: Mouth: Mucous membranes are moist. Pharynx: No oropharyngeal exudate or posterior oropharyngeal erythema. Eyes: General: Right eye: No discharge. Left eye: No discharge. Extraocular Movements: Extraocular movements intact. Conjunctiva/sclera: Conjunctivae normal. Pupils: Pupils are equal, round, and reactive to light. Cardiovascular: Rate and Rhythm: Normal rate and regular rhythm. Pulses: Normal pulses. Heart sounds: Normal heart sounds. No murmur heard. No friction rub. Pulmonary: Effort: Pulmonary effort is normal. No respiratory distress. Breath sounds: Normal breath sounds. No stridor. No wheezing, rhonchi or rales. Comments: Harsh cough with deep inspiration Chest: Chest wall: No tenderness. Abdominal: General: Abdomen is flat. There is no distension. Palpations: Abdomen is soft. There is no mass. Tenderness: There is no abdominal tenderness. There is no right CVA tenderness, left CVA tenderness, guarding or rebound. Hernia: No hernia is present. Musculoskeletal: General: No swelling, tenderness, deformity or signs of injury. Normal range of motion. Cervical back: Normal range of motion and neck supple. No rigidity. Right lower leg: No edema. Left lower leg: No edema. Lymphadenopathy: Cervical: No cervical adenopathy. Skin: General: Skin is warm and dry. Capillary Refill: Capillary refill takes less than 2 seconds. Coloration: Skin is not jaundiced or pale. Findings: No bruising, erythema, lesion or rash. Neurological: General: No focal deficit present. Mental Status: She is alert and oriented to person, place, and time. Cranial Nerves: No cranial nerve deficit. Sensory: No sensory deficit. Motor: No weakness. Coordination: Coordination normal. Gait: Gait normal. Psychiatric: Mood and Affect: Mood normal. Behavior: Behavior normal. Thought Content: Thought content normal. Judgment: Judgment normal. Assessment and Plan ASSESSMENT/PLAN: 1. Acute cough - ICD9: 786.2, ICD10: R05.1 (primary diagnosis) X 1 month Has been seen September 17 for same RX Doxy and Tessalon Perles - XR CHEST 2V FRONTAL/LAT-negative here in clinic No red flags History of asthma and COPD, discussed with patient, more likely etiology 2. Asthma with COPD with exacerbation (HCC) - ICD9: 493.22, ICD10: J44.1, J45.901 Mild intermittent Asthma acute excacerbation no respiratory distress Cough variant Asthma - factors affecting control of asthma include poor adherence to medications and lack of avoidance of triggers (quit smoking 3 days ago) No red flags CXR today negative - Begin Symbicort - Exacerbation treatment of Medrol dose pack - Avoidance of triggers recommended - Asthma Action Plan reviewed - Follow up in 6 days - Flu shot in the fall recommended Ellen Romero APRN.CNP documented in this encounter [facility] 09-22-2022 Telephone encounter Note Called and left a message for pt. If she calls back, release msg below as written. [facility] 09-22-2022 Miscellaneous Notes Called and left a message for pt. If she calls back, release msg below as written. Please see encounters. Swpana sent patient a my chart message regarding her results: Per Swapna: Mikey Walker, I reviewed your lab work that you had done Your blood sugar was 121 with a A1c of 8.2% Thyroid was normal ... Please call patient and relay. Thanks Name of caller: Berna Contact phone number: [phone] Relationship to Patient: patient Provider: Patty Practice: [facility] Chief Complaint/Reason for Call: Pt is asking for the results of the labs done in July Best time of day caller can be reached: PM Patient advised that office/PCP has 24-48 business hours to return their call: Yes documented in this encounter [facility] 09-22-2022 Telephone encounter Note Please see encounters. Swapna sent patient a my chart message regarding her results: Per Swapna: Mikey Walker, I reviewed your lab work that you had done Your blood sugar was 121 with a A1c of 8.2% Thyroid was normal ... Please call patient and relay. Thanks [facility] Work Phone: 09-22-2022 Telephone encounter Note Name of caller: Berna Contact phone number: [phone] Relationship to Patient: patient Provider: Patty Practice: [facility] Chief Complaint/Reason for Call: Pt is asking for the results of the labs done in July Best time of day caller can be reached: PM Patient advised that office/PCP has 24-48 business hours to return their call: Yes [facility] 09-17-2022 Note HNO ID: [id number] Author: Jayy Louis MD Service: ? Author Type: Physician Type: Progress Notes Filed: 09/17/2022 9:38 AM Note Text: Patient presents with: Cough: Cough, sinus, CARABALLO and fever x 3 days HPI: Feeling sick for a week and a half. Her was sick too. Positive symptoms: Cough (productive), coughing spells, sleep disturbance, slight shortness of breath (hx slight bit of asthma), Sinus pressure, Nasal Congestion, Rhinorrhea, Post nasal drainage, resolved Feverish, Headache, Diarrhea, Negative symptoms: Chest pain, Nausea, Vomiting, OTC: Robitussin, Mucinex, Nyquil, Dayquil, Lozenges, albuterol Sugars are running a little high. COVID negative last week. 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 PAST MEDICAL HISTORY Diagnosis Date Diabetes mellitus type 2 (HCC) Hyperlipidemia MEDICATIONS: Current Outpatient Medications Medication Sig metFORMIN (GLUCOPHAGE) 500 mg tablet Take 1,000 mg by mouth. venlafaxine ER (EFFEXOR XR) 150 mg 24 hr capsule Take 150 mg by mouth. insulin lispro (HUMALOG KWIKPEN) 100 unit/mL 3 units before breakfast, 2 units before lunch, 4 units with dinner, Plus sliding scale max daily dose 26 units insulin glargine (LANTUS SOLOSTAR, BASAGLAR KWIKPEN) 100 unit/mL (3 mL) ADMINISTER 16 UNITS UNDER THE SKIN EVERY NIGHT albuterol HFA (PROVENTIL HFA, VENTOLIN HFA) 90 mcg/actuation inhaler Inhale 2 Puffs as instructed every 6 hours as needed. No current facility-administered medications for this visit. ALLERGIES: ALLERGIES No Known Allergies VITALS: BP 118/80 Pulse 94 Temp 36.9 ?C (98.4 ?F) (Tympanic) Resp 18 Wt 60.8 kg (134 lb) SpO2 96% PHYSICAL EXAM: GEN: mildly ill appearing HEENT: PERRL, EOMI, conjunctiva clear Ears: canals clear. TMs without erythema, bulge, or effusion Sinuses: non-tender frontal sinus, non-tender maxillary sinuses Throat: moist mucous membranes, mild erythema, no exudate Neck: supple, no thyromegaly, no lymphadenopathy HEART: regular rate and rhythm, no murmurs LUNGS: clear to auscultation, no wheezes or crackles, no increased WOB; intermittent cough ASSESSMENT/PLAN: 1. URI with cough and congestion - ICD9: 465.9, ICD10: J06.9 (primary diagnosis) 2. Acute non-recurrent sinusitis, unspecified location - ICD9: 461.9, ICD10: J01.90 - COVID WITH FLUA+B, ROUTINE - BENZONATATE 100 MG CAPSULE - DOXYCYCLINE MONOHYDRATE 100 MG CAPSULE, suspect COPD component. Jayy Louis MD [facility] 09-17-2022 History of Presen t illness Narrative Patient presents with: Cough: Cough, sinus, CARABALLO and fever x 3 days HPI: Feeling sick for a week and a half. Her was sick too. Positive symptoms: Cough (productive), coughing spells, sleep disturbance, slight shortness of breath (hx slight bit of asthma), Sinus pressure, Nasal Congestion, Rhinorrhea, Post nasal drainage, resolved Feverish, Headache, Diarrhea, Negative symptoms: Chest pain, Nausea, Vomiting, OTC: Robitussin, Mucinex, Nyquil, Dayquil, Lozenges, albuterol Sugars are running a little high. COVID negative last week. 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 PAST MEDICAL HISTORY Diagnosis Date Diabetes mellitus type 2 (HCC) Hyperlipidemia MEDICATIONS: Current Outpatient Medications Medication Sig metFORMIN (GLUCOPHAGE) 500 mg tablet Take 1,000 mg by mouth. venlafaxine ER (EFFEXOR XR) 150 mg 24 hr capsule Take 150 mg by mouth. insulin lispro (HUMALOG KWIKPEN) 100 unit/mL 3 units before breakfast, 2 units before lunch, 4 units with dinner, Plus sliding scale max daily dose 26 units insulin glargine (LANTUS SOLOSTAR, BASAGLAR KWIKPEN) 100 unit/mL (3 mL) ADMINISTER 16 UNITS UNDER THE SKIN EVERY NIGHT albuterol HFA (PROVENTIL HFA, VENTOLIN HFA) 90 mcg/actuation inhaler Inhale 2 Puffs as instructed every 6 hours as needed. No current facility-administered medications for this visit. ALLERGIES: ALLERGIES No Known Allergies VITALS: BP 118/80 Pulse 94 Temp 36.9 C (98.4 F) (Tympanic) Resp 18 Wt 60.8 kg (134 lb) SpO2 96% PHYSICAL EXAM: GEN: mildly ill appearing HEENT: PERRL, EOMI, conjunctiva clear Ears: canals clear. TMs without erythema, bulge, or effusion Sinuses: non-tender frontal sinus, non-tender maxillary sinuses Throat: moist mucous membranes, mild erythema, no exudate Neck: supple, no thyromegaly, no lymphadenopathy HEART: regular rate and rhythm, no murmurs LUNGS: clear to auscultation, no wheezes or crackles, no increased WOB; intermittent cough ASSESSMENT/PLAN: 1. URI with cough and congestion - ICD9: 465.9, ICD10: J06.9 (primary diagnosis) 2. Acute non-recurrent sinusitis, unspecified location - ICD9: 461.9, ICD10: J01.90 - COVID WITH FLUA+B, ROUTINE - BENZONATATE 100 MG CAPSULE - DOXYCYCLINE MONOHYDRATE 100 MG CAPSULE, suspect COPD component. Jayy Louis MD documented in this encounter [facility] 12-21-2020 [facility] Discharg [facility] instructions Jovani Deleon PA - 12/21/2020 Please follow-up with your primary care physician. Please take medications as prescribed. Please do not hesitate to return to the ED at anytime with any new or worsening symptoms. Additionally you should purchase some compression sleeves to help with your symptoms. Ice and elevation will also help. The following attachments cannot be sent through Care Everywhere.Elbow: Kashif's (Slovenian)documented in this encounter [facility] Work Phone: 07-09-2019 [facility] Discharg [facility] instructions Melanie Rogers RN - 07/09/2019 1:42 PM EST As instructed by physician Melanie Rogers RN - 07/09/2019 1:42 PM EST ? Good nutrition is important when healing from an illness, injury, or surgery. Follow any nutrition recommendations given to you during your hospital stay. ? If you were given an oral nutrition supplement while in the hospital, continue to take this supplement at home. You can take it with meals, in-between meals, and/or before bedtime. These supplements can be purchased at most local grocery stores, pharmacies, and chain [employer]-stores. ? If you have any questions about your diet or nutrition, call the hospital and ask for the dietitian. Check blood sugars Wesley Gary MD - 07/09/2019 Follow with PCP within 1 week to address your Diabetes. Continue on the current home insulin regimen. Will need to recheck electrolytes such as magnesium and phosphate in 1 week[address] Per orthopedic surgeon Dr. Moses, change bandage once daily, allow to air dry and apply non-adherent dressing afterwards. May apply over the counter neosporin to the right 4th finger. Will send home on two antibiotics (bactrim and augmentin for 10 days). GENERAL SIGNS AND SYMPTOMS GREEN ZONE: All Clear- Your Symptoms Are Under Control No recurrence of symptoms that led to hospitalization Able to do usual activities No fever No chest pain No shortness of breath This Means You Should: Continue taking your medications as prescribed Continue activity as tolerated Keep all doctor appointments YELLOW ZONE: Caution as Your Health may be Worsening Recurrence of symptoms that led to hospitalization Fever of 100 degrees or higher Increased fatigue or restlessness Intolerant side-effects of medications Uneasy feeling or that something is wrong This Means You Should: Call your doctor for further instructions RED ZONE: Medical Alert Severe or unrelieved shortness of breath at rest Unrelieved chest pain Confusion or you can't think clearly This Means You Should Call 911 Immediately Diabetic Ketoacidosis (DKA): Care Instructions Your Care Instructions Diabetic ketoacidosis (DKA) happens when the body does not have enough insulin and can't get the sugar it needs for energy. When the body can't use sugar for energy, it starts to use fat for energy. This process makes fatty acids called ketones. The ketones build up in the blood and change the chemical balance in your body. This problem can be very dangerous and needs to be treated. Without treatment, it can lead to a coma or . DKA occurs most often in people with type 1 diabetes. But people with type 2 diabetes also can get it. DKA can be caused by many things. It can happen if you don't take enough insulin. It can also happen if you have an infection or illness like the flu. Sometimes it happens if you are very dehydrated. DKA can only be treated with insulin and fluids. These are often given in a vein (IV). Follow-up care is a liriano part of your treatment and safety. Be sure to make and go to all appointments, and call your doctor if you are having problems. It's also a good idea to know your test results and keep a list of the medicines you take. How can you care for yourself at home? To reduce your chance of ketoacidosis: Take your insulin and other diabetes medicines on time and in the right dose. ? If an infection caused your DKA and your doctor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 Exam GEN - asleep, in NAD HEART- S1S2 RRR, no M/G/R LUNG- CTA No W/R/R, good air exchange ABD- Soft NT,ND EXT- right 4th finger swollen and red with abscess near nail bed. Neuro - TBD Hendrix:Yes Drains:No Central Line/port:No Diet: Dietary Nutrition Supplements: Diabetic Oral Supplement DIET CARB CONTROL; Carb Control: 4 carb choices (60 gms)/meal Medications: linezolid 600 mg Oral 2 times per day famotidine 20 mg Oral BID polyethylene glycol 17 g Oral Daily fluticasone 1 puff Inhalation BID cetirizine 5 mg Oral Daily mirtazapine 15 mg Oral Nightly montelukast 10 mg Oral Nightly docusate sodium 100 mg Oral BID sodium chloride flush 10 mL Intravenous 2 times per day heparin (porcine) 5,000 Units Subcutaneous 3 times per day influenza virus vaccine 0.5 mL Intramuscular Once insulin glargine 12 Units Subcutaneous Daily insulin lispro 2 Units Subcutaneous TID WC insulin lispro 0-6 Units Subcutaneous TID WC insulin lispro 0-3 Units Subcutaneous Nightly venlafaxine 150 mg Oral Daily with breakfast Continuous Infusions: PRN Meds:traZODone, potassium chloride OR potassium alternative oral replacement OR potassium chloride, sodium chloride flush, ondansetron, ipratropium-albuterol, acetaminophen, sodium phosphate IVPB OR sodium phosphate IVPB, glucose, glucagon (rDNA), dextrose Data: CBC: Recent Labs 07/06/19 0738 07/08/19 0542 WBC 8.1 7.8 RBC 4.40 4.65 HGB 13.7 14.4 HCT 40.4 42.1 MCV 92.0 90.4 RDW 13.8 13.6 PLT 255 273 BMP: Recent Labs 07/06/19 0737 07/06/19 1708 07/08/19 0542 NA 137 134* 136 K 3.2* 3.5 3.7 CL 106 102 97* CO2 20* 21* 29 BUN 3* 8 8 CREATININE 0.46* 0.51* 0.49* GLUCOSE 177* 192* 222* CALCIUM 8.0* 8.0* 8.8 ANIONGAP 11 11 10 LIVER PROFILE: Recent Labs 07/06/19 0737 07/08/19 0542 AST 17 25 ALT 26 22 BILITOT 0.3 0.7 ALKPHOS 56 72 LABALBU 3.0* 3.3* PROT 5.4* 6.1* PT/INR:No results for input(s): PROTIME, INR in the last 72 hours. CARDIAC ENZYMES: No results for input(s): TROPONINI in the last 72 hours. Procalcitonin: Lab Results Component Value Date PROCAL 0.13 07/05/2019 Glucose: Recent Labs 07/07/19 0716 07/07/19 1216 07/07/19 1719 07/07/19200707/08/19 0747 07/08/19 1120 POCGLU 202* 198* 165* 204* 197* 247* Safety/Discharge prep checklist: Patient is at cognitive baseline: TBD Patient is at functional baseline: TBD Patient has baseline oral intake x 24 hours: No Patient is on all oral medication: TBD Assessment/Plan: 1. Patient Active Problem List Diagnosis Date Noted Paronychia of finger of right hand 07/08/2019 DKA, type 2, not at goal ([facility]) 07/05/2019 Lactic acidemia 07/05/2019 Hypothermia 07/05/2019 Diabetic ketoacidosis without coma associated with type 2 diabetes mellitus ([facility]) Allergic conjunctivitis and rhinitis, bilateral 06/07/2018 COPD suggested by initial evaluation ([facility]) 06/06/2016 Diabetes type 2, uncontrolled ([facility]) 04/21/2016 Chronic pain of left knee 04/21/2016 Unspecified mood (affective) disorder ([facility]) Overview Note: PTSD DVT Prophylaxis: heparin GI PPX: yes Dispo: zyvox for paronychia with worsening. Ortho to see for poss I+D. Cont to monitor labs. Encourage po. Follow up with endocrine for DM management. Electronically signedby Angy Torres MD on 07/08/2019 at 2:37 PM [facility] Progress Note Subjective/ 43 y.o. year old female who we are seeing in consultation for metabolic acidosis. Interval Hx: Seen and examined Responsive to commands, more awake now No complaints overnight No CP, SOB, peripheral edema No N/V at this time Psych consulted, notes rec'd ROS (-) unless mentioned above No changes in PFSH Objective/ Vitals: 07/07/19 2330 07/08/19 0004 07/08/19 0251 07/08/19 0909 BP: 108/74 (!) 147/94 106/73 Pulse: 82 113 108 Resp: 16 Temp: 96.6 F (35.9 C) 98.7 F (37.1 C) 98.7 F (37.1 C) TempSrc: Temporal Temporal Temporal SpO2: 94% 98% 95% Weight: 124 lb 9.6 oz (56.5 kg) Height: 24HR INTAKE/OUTPUT: Intake/Output Summary (Last 24 hours) at 07/08/2019 1014 Last data filed at 07/07/2019 1054 Gross per 24 hour Intake Output 600 ml Net -600 ml Constitutional: Alert, awake, no apparent distress Head: AT NC Neck: supple, No JVD, no thyromegaly EENT: eyes nonicteric, MM dry Cardiovascular: RRR, S1, S2 without m/r/g Respiratory: CTA B without w/r/r Abdomen: soft, NT, ND Ext: no peripheral edema, no tremors Current Facility-Administered Medications Medication Dose Route Frequency Provider Last Rate Last Dose vancomycin (VANCOCIN) 1,250 mg in dextrose 5 % 250 mL IVPB 1,250 mg Intravenous Q12H Wesley Gary MD 125 mL/hr at 07/08/19 1011 1,250 mg at 07/08/19 1011 piperacillin-tazobactam (ZOSYN) 3.375 g in dextrose 50 mL IVPB extended infusion (premix) 3.375 g Intravenous Q8H Wesley Gary MD traZODone (DESYREL) tablet 50 mg 50 mg Oral Nightly PRN Kavitha Fernández MD 50 mg at 07/07/192020 polyethylene glycol (GLYCOLAX) packet 17 g 17 g Oral Daily Wesley Gary MD 17 g at 07/07/19 1307 fluticasone (FLOVENT HFA) 110 MCG/ACT inhaler 1 puff 1 puff Inhalation BID Bhargavi Capps MD cetirizine (ZYRTEC) tablet 5 mg 5 mg Oral Daily Bhargavi Capps MD 5 mg at 07/08/19 1013 mirtazapine (REMERON) tablet 15 mg 15 mg Oral Nightly Bhargavi Capps MD 15 mg at 07/07/192020 montelukast (SINGULAIR) tablet 10 mg 10 mg Oral Nightly Bhargavi Capps MD 10 mg at 07/07/192020 potassium chloride (KLOR-CON M) extended release tablet 40 mEq 40 mEq Oral PRN SILVIA ChristopherC 40 mEq at 07/06/19 0715 Or potassium bicarb-citric acid (EFFER-K) effervescent tablet 40 mEq 40 mEq Oral PRN Roberta Deras PA-C Or potassium chloride 10 mEq/100 mL IVPB (Peripheral Line) 10 mEq Intravenous PRN Roberta Deras PA-C docusate sodium (COLACE) capsule 100 mg 100 mg Oral BID Wesley Gary MD 100 mg at 07/08/19 1012 dextrose 5 % and 0.45 % NaCl with KCl 20 mEq infusion Intravenous Continuous PRN Roberta Deras PA-C Stopped at 07/05/19 1516 sodium chloride flush 0.9 % injection 10 mL 10 mL Intravenous 2 times per day SILVIA ChristopherC 10 mL at 07/07/192021 sodium chloride flush 0.9 % injection 10 mL 10 mL Intravenous PRN Roberta Deras PA-C ondansetron (ZOFRAN) injection 4 mg 4 mg Intravenous Q6H PRN Roberta Deras PA-C heparin (porcine) injection 5,000 Units 5,000 Units Subcutaneous 3 times per day Roberta Deras PA-C 5,000 Units at 07/08/19 0543 ipratropium-albuterol (DUONEB) nebulizer solution 1 ampule 1 ampule Inhalation Q4H PRN Roberta Deras PA-C acetaminophen (TYLENOL) tablet 650 mg 650 mg Oral Q4H PRN Roberta Deras PA-C influenza quadrivalent split vaccine (FLUZONE;FLUARIX;FLULAVAL;AFLURI A) injection 0.5 mL 0.5 mL Intramuscular Once Roberta Deras PA-C magnesium sulfate 1 g in dextrose 5% 100 mL IVPB 1 g Intravenous PRN Roberta Deras PA-C sodium phosphate 10.17 mmol in dextrose 5 % 250 mL IVPB 0.16 mmol/kg Intravenous PRN Roberta Deras PA-C Stopped at 07/06/19 0905 Or sodium phosphate 20.31 mmol in dextrose 5 % 250 mL IVPB 0.32 mmol/kg Intravenous PRN Roberta Deras PA-C Stopped at 07/05/19 1214 glucose (GLUTOSE) 40 % oral gel 15 g 15 g Oral PRN Roberta Deras PA-C glucagon (rDNA) injection 1 mg 1 mg Intramuscular PRN Roberta Deras PA-C dextrose 5 % solution 100 mL/hr Intravenous PRN Roberta Deras PA-C famotidine (PEPCID) injection 20 mg 20 mg Intravenous BID Roberta Deras PA-C 20 mg at 07/08/19 1012 insulin glargine (LANTUS) injection vial 12 Units 12 Units Subcutaneous Daily Fab Swift MD 12 Units at 07/07/19 0854 insulin lispro (HUMALOG) injection vial 2 Units 2 Units Subcutaneous TID Fab Swift MD 2 Units at 07/07/19 1722 insulin lispro (HUMALOG) injection vial 0-6 Units 0-6 Units Subcutaneous TID Fab Swift MD 1 Units at 07/07/19 1724 insulin lispro (HUMALOG) injection vial 0-3 Units 0-3 Units Subcutaneous Nightly Fab Swift MD 1 Units at 07/07/19 2020 venlafaxine (EFFEXOR XR) extended release capsule 150 mg 150 mg Oral Daily with breakfast Wesley Gary MD 150 mg at 07/08/19 1012 dextrose 50 % IV solution 12.5 g Intravenous PRN Roberta Deras PA-C dextrose 5% and 0.45% NaCl with KCl 20 mEq Stopped (07/05/19 1516) dextrose Data/ Recent Labs 07/06/19 0738 07/08/19 0542 WBC 8.1 7.8 HGB 13.7 14.4 HCT 40.4 42.1 MCV 92.0 90.4 PLT 255 273 Recent Labs 07/06/19 0737 07/06/19 1708 07/07/19 0525 07/08/19 0542 NA 137 134* -- 136 K 3.2* 3.5 -- 3.7 CL 106 102 -- 97* CO2 20* 21* -- 29 GLUCOSE 177* 192* -- 222* PHOS 2.1* 2.0* 1.6* 3.8 MG 2.1 1.8 1.8 1.7 BUN 3* 8 -- 8 CREATININE 0.46* 0.51* -- 0.49* Assessment/ 1. Severe metabolic acidosis (improving, off bicarb gtt) 2. Diabetic keto acidosis (improving, off insulin gtt) 3. Non compliance with meds. 4. Lactic acidosis. 5. DM with hyperglycemia, uncontrolled. 6. COPD. Plan/ crea stable - Good PO intake, encouraged. Noted off ivf/agree Mental status with improvement. - Tarun consulted, notes rec'd - Glucose better controlled, intermittent insulin - - - K/Phos are now better - Na is stable - - - Will continue to follow closely [facility] Medical Teaching Service Progress Note Patient: Denise Mendez : 1975 Acct: [id number] PCP: Wesley Gary MD Admitting Physician: Fab Swift MD Admission Date: 07/04/2019 Admitting Diagnosis: DKA, type 2, not at goal (HCC) [E11.10] DKA, type 2, not at goal (HCC) [E11.10] Unit/Bed: 250/2501 Hospital Day: 3 Code Status: Full Code Subjective: Overnight events: No acute overnight events Patient seems better this am. States that her abdominal pain has resolved. No nausea or emesis. Tolerating diet well. Still complaining of pain on the right ring finger with re-filling of pus to the affected finger after bedside I&D yesterday. Was changed to IV abx this am due to worsening pain and streaking up the dorsal hand. VSS. Denies chest pain, shortness of breath, nausea, emesis, fever or chills. Agree w/ above. Pt complaining of worsening pain of 4th right digit, which had been I&D'd yesterday, also having swelling and spreading redness. Pt claims she has not been biting nails. Objective: Vitals: 07/07/19 2006 07/07/19 2330 07/08/19 0004 07/08/19 0251 BP: 123/89 108/74 (!) 147/94 Pulse: 99 82 113 Resp: 18 18 18 Temp: 98.6 F (37 C) 96.6 F (35.9 C) 98.7 F (37.1 C) TempSrc: Temporal Temporal Temporal SpO2: 96% 94% 98% Weight: 124 lb 9.6 oz (56.5 kg) Height: Intake/Output Summary (Last 24 hours) at 07/08/2019 0821 Last data filed at 07/07/2019 1054 Gross per 24 hour Intake 240 ml Output 600 ml Net -360 ml Physical Exam Vitals signs and nursing note reviewed. Constitutional: Appearance: She is normal weight. She is ill-appearing. HENT: Mouth/Throat: Mouth: Mucous membranes are moist. Eyes: Pupils: Pupils are equal, round, and reactive to light. Cardiovascular: Rate and Rhythm: Normal rate and regular rhythm. Pulses: Normal pulses. Heart sounds: Normal heart sounds. No murmur. Pulmonary: Effort: Pulmonary effort is normal. No respiratory distress. Breath sounds: Normal breath sounds. No wheezing. Abdominal: General: Abdomen is flat. Bowel sounds are normal. There is no distension. Palpations: Abdomen is soft. Tenderness: There is tenderness (Improved compared to yesterday). Musculoskeletal: Normal range of motion. General: No swelling. Comments: R 1st digit swelling and pus filled. Streaking and erythema traveling up the dorsal hand. Limited ROM on flexion and extension of the affected left finger Skin: General: Skin is warm. Capillary Refill: Capillary refill takes less than 2 seconds. Neurological: General: No focal deficit present. Mental Status: She is alert and oriented to person, place, and time. Psychiatric: Mood and Affect: Mood normal. Agree w/ above except right 4th digit has extensive swelling and erythema, encompassing whole finger and erythema extending up dorsum of hand beyond wrist, which was NOT present yesterday. Re-accumulation of pus next to nail fold. Unable to fully flex digit 2/2 pain. Hendrix: No Drains: No Central Line/Port: No Diet: Dietary Nutrition Supplements: Diabetic Oral Supplement DIET CARB CONTROL; Carb Control: 4 carb choices (60 gms)/meal Medications: sulfamethoxazole-trimethoprim 1 tablet Oral 2 times per day polyethylene glycol 17 g Oral Daily fluticasone 1 puff Inhalation BID cetirizine 5 mg Oral Daily mirtazapine 15 mg Oral Nightly montelukast 10 mg Oral Nightly docusate sodium 100 mg Oral BID sodium chloride flush 10 mL Intravenous 2 times per day heparin (porcine) 5,000 Units Subcutaneous 3 times per day influenza virus vaccine 0.5 mL Intramuscular Once famotidine (PEPCID) injection 20 mg Intravenous BID insulin glargine 12 Units Subcutaneous Daily insulin lispro 2 Units Subcutaneous TID WC insulin lispro 0-6 Units Subcutaneous TID WC insulin lispro 0-3 Units Subcutaneous Nightly venlafaxine 150 mg Oral Daily with breakfast Continuous Infusions: dextrose 5% and 0.45% NaCl with KCl 20 mEq Stopped (07/05/19 1516) dextrose PRN Meds:traZODone, potassium chloride OR potassium alternative oral replacement OR potassium chloride, dextrose 5% and 0.45% NaCl with KCl 20 mEq, sodium chloride flush, ondansetron, ipratropium-albuterol, acetaminophen, magnesium sulfate, sodium phosphate IVPB OR sodium phosphate IVPB, glucose, glucagon (rDNA), dextrose, dextrose Labs: Recent Results (from the past 24 hour(s)) POCT Glucose Collection Time: 07/07/19 12:16 PM Result Value Ref Range POC Glucose 198 (H) 70 - 100 mg/dL POCT Glucose Collection Time: 07/07/19 5:19 PM Result Value Ref Range POC Glucose 165 (H) 70 - 100 mg/dL POCT Glucose Collection Time: 07/07/19 8:08 PM Result Value Ref Range POC Glucose 204 (H) 70 - 100 mg/dL CBC auto differential Collection Time: 07/08/19 5:42 AM Result Value Ref Range WBC 7.8 3.6 - 10.7 10*3/uL RBC 4.65 3.80 - 5.20 10*6/uL Hemoglobin 14.4 11.7 - 16.0 g/dL Hematocrit 42.1 35.0 - 47.0 % MCV 90.4 79.0 - 98.0 fL MCH 31.0 26.0 - 34.0 pg MCHC 34.3 32.0 - 36.0 % RDW 13.6 11.5 - 14.5 % Platelets 273 140 - 440 10*3/uL MPV 8.3 7.4 - 10.4 fL Granulocytes % 66.5 40.0 - 80.0 % Lymphocyte % 25.4 20.0 - 40.0 % Monocytes 6.9 2.0 - 10.0 % Eosinophils 0.7 (L) 1.0 - 6.0 % Basophils 0.5 0.0 - 2.0 % Absolute Neut # 5.2 1.8 - 7.0 10*3/uL Absolute Lymph # 2.0 1.0 - 4.3 10*3/uL Absolute Fannin # 0.5 0.0 - 0.8 10*3/uL Absolute Eos # 0.1 0.0 - 0.5 10*3/uL Absolute Baso # 0.0 0.0 - 0.2 10*3/uL Hepatic Function Panel Collection Time: 07/08/19 5:42 AM Result Value Ref Range Albumin,Serum 3.3 (L) 3.5 - 5.0 g/dL Total Protein 6.1 (L) 6.3 - 8.2 g/dL Total Bilirubin 0.7 0.2 - 1.3 mg/dL Bilirubin, Direct 0.0 0.0 - 0.3 mg/dL Alkaline Phosphatase 72 38 - 126 U/L ALT 22 13 - 69 U/L AST 25 15 - 46 U/L CALCIUM, IONIZED Collection Time: 07/08/19 5:42 AM Result Value Ref Range Ionized Ca 4.30 4.30 - 5.20 mg/dL pH, Bld 7.56 (H) 7.31 - 7.46 NA Basic Metabolic Panel Collection Time: 07/08/19 5:42 AM Result Value Ref Range Sodium 136 135 - 145 mmol/L Potassium 3.7 3.5 - 5.1 mmol/L Chloride 97 (L) 98 - 107 mmol/L CO2 29 22 - 30 mmol/L Anion Gap 10 NA Glucose 222 (H) 70 - 100 mg/dL BUN 8 7 - 20 mg/dL CREATININE 0.49 (L) 0.52 - 1.25 mg/dL eGFR >60.0 >60 mL/min EGFR IF NonAfrican [place]er >60.0 >60 mL/min Calcium 8.8 8.4 - 10.4 mg/dL Magnesium Collection Time: 07/08/19 5:42 AM Result Value Ref Range Magnesium 1.7 1.6 - 2.3 mg/dL Phosphorus Collection Time: 07/08/19 5:42 AM Result Value Ref Range Phosphorus 3.8 2.5 - 4.5 mg/dL POCT Glucose Collection Time: 07/08/19 7:47 AM Result Value Ref Range POC Glucose 197 (H) 70 - 100 mg/dL ASSESSMENT/PLAN: Active Hospital Problems Diagnosis DKA, type 2, not at goal (HCC) [E11.10] Lactic acidemia [E87.2] Hypothermia [T68.XXXA] Diabetic ketoacidosis without coma associated with type 2 diabetes mellitus (HCC) [E11.10] Unspecified mood (affective) disorder (HCC) [F39] 1. Uncontrolled DM2 S/p DKA with severe Anion Gap Metabolic acidosis with lactic acidosis - resolved Stable. Patient improving. No infectious source as cause of DKA, DKA likely due to stopping meds, which was potentially due to depression/passive suicidality. - Insulin regimen: Lantus 12 units daily, Humalog 2 units TID, LDSSI - controlled on current regimen - Appreciate Endocrinology and Nephrology recs - Psych recs (Dr. Fernández) - Restarted remeron, effexor, no acute SI - Zofran 4mg Iv q6 PRN - BGT QAC/HS - Labs: Daily BMP,CBC, Mg, Phos Acute Paronychia w/ cellulitis of R 4th digit s/p bedside I&D (07/07) Symptoms have worsened on oral abx and after I&D with streaking up the left hand - Discontinue Bactrim - Start on Vanc (07/08 - ) and Zosyn (07/08 - ) > per ID stewardship, changed to linezolid (07/08 - ) - Consult Orthopedic surgery (Dr. Moses) > resident discussed case with Dr. Moses this AM - if improved 07/09 may be d/c'd, but unsure if linzolid will be covered > may need sent home on bactrim/keflex - Warm soaks BID Abdominal pain likely 2/2 # 1 & constipation vs gastric distension - GI recs - Consider UGI if sx worsen - Patient refused EGD - Bowel regimen: Colace BID - Management per # 1 Malnutrition with suspected Refeeding syndrome No hx of anorexia or etoh use - Daily Mg/Phos - Ensure BID - patient states that she does not like the way it tastes - Nutrition on board Passive suicidally with hx of PTSD - Awaiting Psych recs > safe for OP follow-up per Dr. Fernández' note, restarted meds Asthma - Continue Singular/Flovent/Albuterol Depression - Continue Effexor 150mg QAM, 75mg QHS? > currently has 150 mg qAM ordered per psych - Continue Remeron 15mg q nightly - Continue Trazadone 50mg q nightly prn FEN/GI/DVT: IVF: none Electrolytes: Monitor and replace per protocols Diet: Carb control GI PPX: No DVT Prophylaxis: > Lovenox DISPOSITION: BGT, orthopedic recs, continue IV abx I have personally seen the patient and performed a physical exam. I have reviewed the note and agree with the assessment and plan as documented above with my changes documented in blue font. Bhargavi Capps 07/08/2019 5:01 PM Medical Teaching Service Progress Note Patient: Denise Mendez : 1975 Acct: [id number] PCP: Wesley Gary MD Admitting Physician: Fab Swift MD Admission Date: 07/04/2019 Admitting Diagnosis: DKA, type 2, not at goal (HCC) [E11.10] DKA, type 2, not at goal (HCC) [E11.10] Unit/Bed: /2228 Hospital Day: 2 Code Status: Full Code Subjective: Overnight events: No acute overnight events Patient seems at baseline this am. States that she feels better today with less abdominal pain. Oral intake has improved and had dinner yesterday and good breakfast this am. Complained of pain of the right first digit. VSS. Denies chest pain, shortness of breath, nausea, emesis, fever or chills. Agree w/ above. Psych consulted yesterday as pt states she had a fight with her daughter and was tired of life and stopped taking her medications. Objective: Vitals: 07/06/19 1002 07/06/19 2002 07/07/19 0002 07/07/19 0402 BP: 108/62 119/83 (!) 125/96 119/81 Pulse: 93 99 99 88 Resp: 17 18 Temp: 98.2 F (36.8 C) 98.4 F (36.9 C) TempSrc: Oral Oral SpO2: 99% 98% 98% 98% Weight: Height: Intake/Output Summary (Last 24 hours) at 07/07/2019 0844 Last data filed at 07/07/2019 0002 Gross per 24 hour Intake 1450 ml Output 2100 ml Net -650 ml Physical Exam Vitals signs and nursing note reviewed. Constitutional: Appearance: She is normal weight. She is ill-appearing. HENT: Mouth/Throat: Mouth: Mucous membranes are moist. Eyes: Pupils: Pupils are equal, round, and reactive to light. Cardiovascular: Rate and Rhythm: Normal rate and regular rhythm. Pulses: Normal pulses. Heart sounds: Normal heart sounds. No murmur. Pulmonary: Effort: Pulmonary effort is normal. No respiratory distress. Breath sounds: Normal breath sounds. No wheezing. Abdominal: General: Abdomen is flat. Bowel sounds are normal. There is no distension. Palpations: Abdomen is soft. Tenderness: There is tenderness (Improved compared to yesterday). Musculoskeletal: Normal range of motion. General: No swelling. Comments: R 1st digit swelling and pus Skin: General: Skin is warm. Capillary Refill: Capillary refill takes less than 2 seconds. Neurological: General: No focal deficit present. Mental Status: She is alert and oriented to person, place, and time. Psychiatric: Mood and Affect: Mood normal. Agree w/ above. Hendrix: No Drains: No Central Line/Port: No Diet: Dietary Nutrition Supplements: Diabetic Oral Supplement DIET CARB CONTROL; Carb Control: 4 carb choices (60 gms)/meal Medications: phosphorus 500 mg Oral BID potassium phosphate IVPB 15 mmol Intravenous Once sulfamethoxazole-trimethoprim 1 tablet Oral 2 times per day docusate sodium 100 mg Oral BID sodium chloride flush 10 mL Intravenous 2 times per day heparin (porcine) 5,000 Units Subcutaneous 3 times per day influenza virus vaccine 0.5 mL Intramuscular Once famotidine (PEPCID) injection 20 mg Intravenous BID insulin glargine 12 Units Subcutaneous Daily insulin lispro 2 Units Subcutaneous TID WC insulin lispro 0-6 Units Subcutaneous TID WC insulin lispro 0-3 Units Subcutaneous Nightly venlafaxine 150 mg Oral Daily with breakfast Continuous Infusions: dextrose 5% and 0.45% NaCl with KCl 20 mEq Stopped (07/05/19 1516) dextrose PRN Meds:potassium chloride OR potassium alternative oral replacement OR potassium chloride, dextrose 5% and 0.45% NaCl with KCl 20 mEq, sodium chloride flush, ondansetron, ipratropium-albuterol, acetaminophen, magnesium sulfate, sodium phosphate IVPB OR sodium phosphate IVPB, glucose, glucagon (rDNA), dextrose, dextrose Labs: Recent Results (from the past 24 hour(s)) POCT Glucose Collection Time: 07/06/19 12:16 PM Result Value Ref Range POC Glucose 179 (H) 70 - 100 mg/dL POCT Glucose Collection Time: 07/06/19 4:55 PM Result Value Ref Range POC Glucose 175 (H) 70 - 100 mg/dL Beta-Hydroxybutyrate Collection Time: 07/06/19 5:08 PM Result Value Ref Range Beta-Hydroxybutyrate 12.30 (H) 0.20 - 2.81 mg/dL Basic Metabolic Panel Collection Time: 07/06/19 5:08 PM Result Value Ref Range Sodium 134 (L) 135 - 145 mmol/L Potassium 3.5 3.5 - 5.1 mmol/L Chloride 102 98 - 107 mmol/L CO2 21 (L) 22 - 30 mmol/L Anion Gap 11 NA Glucose 192 (H) 70 - 100 mg/dL BUN 8 7 - 20 mg/dL CREATININE 0.51 (L) 0.52 - 1.25 mg/dL eGFR >60.0 >60 mL/min EGFR IF NonAfrican [place]er >60.0 >60 mL/min Calcium 8.0 (L) 8.4 - 10.4 mg/dL Magnesium Collection Time: 07/06/19 5:08 PM Result Value Ref Range Magnesium 1.8 1.6 - 2.3 mg/dL Phosphorus Collection Time: 07/06/19 5:08 PM Result Value Ref Range Phosphorus 2.0 (L) 2.5 - 4.5 mg/dL POCT Glucose Collection Time: 07/06/19 10:35 PM Result Value Ref Range POC Glucose 205 (H) 70 - 100 mg/dL CALCIUM, IONIZED Collection Time: 07/07/19 5:25 AM Result Value Ref Range Ionized Ca 4.30 4.30 - 5.20 mg/dL pH, Bld 7.55 (H) 7.31 - 7.46 NA Magnesium Collection Time: 07/07/19 5:25 AM Result Value Ref Range Magnesium 1.8 1.6 - 2.3 mg/dL Phosphorus Collection Time: 07/07/19 5:25 AM Result Value Ref Range Phosphorus 1.6 (L) 2.5 - 4.5 mg/dL POCT Glucose Collection Time: 07/07/19 7:16 AM Result Value Ref Range POC Glucose 202 (H) 70 - 100 mg/dL ASSESSMENT/PLAN: Active Hospital Problems Diagnosis DKA, type 2, not at goal (HCC) [E11.10] Lactic acidemia [E87.2] Hypothermia [T68.XXXA] Diabetic ketoacidosis without coma associated with type 2 diabetes mellitus (HCC) [E11.10] 1. Uncontrolled DM2 s/p DKA with severe Anion Gap Metabolic acidosis with lactic acidosis - resolved Stable. Patient improving. Transferred to [facility] yesterday. Remains in ICU waiting for bed placement. No infectious source as cause of DKA, DKA likely due to stopping meds, which was potentially due to depression/passive suicidality. - Insulin regimen: Lantus 12 units daily, Humalog 2 units TID, LDSSI - controlled on current regimen - Appreciate Endocrinology and Nephrology recs - Zofran 4mg Iv q6 PRN - Labs: BMP, Mg, Phos q4 - consider spacing to daily - BGT QAC/HS - Daily CBC - psych recs appreciated > restarted remeron, effexor, no acute SI - pt alkalotic on iCa check today, concerned about drastic change, but bicarb still borderline low > ?lab error? > appreciate nephro recs (concerned as large change in pH dangerous) Abdominal pain likely 2/2 # 1 & constipation vs gastric distension - GI recs - Consider UGI if sx worsen - Patient refused EGD - Bowel regimen: colace BID - Management per # 1 Hypothermia 2/2 suspected sepsis - resolved T 93 F >>98 F - resolved. BCx # 1 NG, BCx # 2 Stap epi (contaminant) and UCx NG - Monitor - Hold off on abx Malnutrition with suspected Refeeding syndrome No hx of anorexia or etoh use - Monitor Mg/Phos q4hr > transition to daily labs - nutrition consult Passive suicidally with hx of PTSD - Awaiting Psych recs Acute Paronychia of R 1st digit s/p bedside I&D (07/07) - Bactrim x 5 days - warm soaks Asthma - Albuterol - Hold Singular > restarted - restarted Flovent Mild Leukocytosis likely reactive - Continue to monitor Depression - Continue Effexor 150mg QAM, 75mg QHS? - Hold Remeron 15mg q nightly > restarted - Hold Trazadone 50mg q nightly > restarted by psych FEN/GI/DVT: IVF: none Electrolytes: Monitor and replace per protocols Diet: Carb control GI PPX: No DVT Prophylaxis: SubQ hep DISPOSITION: BGT, monitor electrolytes, Psych recs I have personally seen the patient and performed a physical exam. I have reviewed the note and agree with the assessment and plan as documented above with my changes documented in blue font. Bhargavi Capps 07/07/2019 12:44 PM [facility] Progress Note Subjective/ 43 y.o. year old female who we are seeing in consultation for metabolic acidosis. Interval Hx: Seen and examined Responsive to commands, lethargic No complaints overnight No CP, SOB, peripheral edema Hendrix with good UOP No N/V at this time Psych consulted, notes rec'd ROS (-) unless mentioned above No changes in PFSH Objective/ Vitals: 07/06/19 1002 07/06/19 2002 07/07/19 0002 07/07/19 0402 BP: 108/62 119/83 (!) 125/96 119/81 Pulse: 93 99 99 88 Resp: 17 18 Temp: 98.2 F (36.8 C) 98.4 F (36.9 C) TempSrc: Oral Oral SpO2: 99% 98% 98% 98% Weight: Height: 24HR INTAKE/OUTPUT: Intake/Output Summary (Last 24 hours) at 07/07/2019 0840 Last data filed at 07/07/2019 0002 Gross per 24 hour Intake 1450 ml Output 2100 ml Net -650 ml Constitutional: Drrowsy, no apparent distress Head: AT NC Neck: supple, No JVD, no thyromegaly EENT: eyes nonicteric, MM dry Cardiovascular: RRR, S1, S2 without m/r/g Respiratory: CTA B without w/r/r Abdomen: soft, NT, ND Ext: no peripheral edema, no tremors Current Facility-Administered Medications Medication Dose Route Frequency Provider Last Rate Last Dose phosphorus (K PHOS NEUTRAL) tablet 2 tablet 500 mg Oral BID Bernadette White, DO potassium phosphate 15 mmol in dextrose 5 % 250 mL IVPB 15 mmol Intravenous Once Bhargavi Capps MD sulfamethoxazole-trimethoprim (BACTRIM DS;SEPTRA DS) 800-160 MG per tablet 1 tablet 1 tablet Oral 2 times per day Bernadette White, DO potassium chloride (KLOR-CON M) extended release tablet 40 mEq 40 mEq Oral PRN Roberta Deras PA-C 40 mEq at 07/06/19 0715 Or potassium bicarb-citric acid (EFFER-K) effervescent tablet 40 mEq 40 mEq Oral PRN Roberta Deras PA-C Or potassium chloride 10 mEq/100 mL IVPB (Peripheral Line) 10 mEq Intravenous PRN Roberta Deras PA-C docusate sodium (COLACE) capsule 100 mg 100 mg Oral BID Wesley Gary MD 100 mg at 07/06/19 2236 dextrose 5 % and 0.45 % NaCl with KCl 20 mEq infusion Intravenous Continuous PRN Roberta Deras PA-C Stopped at 07/05/19 1516 sodium chloride flush 0.9 % injection 10 mL 10 mL Intravenous 2 times per day Roberta Deras PA-C 10 mL at 07/06/19 2237 sodium chloride flush 0.9 % injection 10 mL 10 mL Intravenous PRN Roberta Deras PA-C ondansetron (ZOFRAN) injection 4 mg 4 mg Intravenous Q6H PRN Roberta Deras PA-C heparin (porcine) injection 5,000 Units 5,000 Units Subcutaneous 3 times per day Roberta Deras PA-C 5,000 Units at 07/07/19 0547 ipratropium-albuterol (DUONEB) nebulizer solution 1 ampule 1 ampule Inhalation Q4H PRN Roberta Deras PA-C acetaminophen (TYLENOL) tablet 650 mg 650 mg Oral Q4H PRN Roberta Dersa PA-C influenza quadrivalent split vaccine (FLUZONE;FLUARIX;FLULAVAL;AFLURI A) injection 0.5 mL 0.5 mL Intramuscular Once Roberta Deras PA-C magnesium sulfate 1 g in dextrose 5% 100 mL IVPB 1 g Intravenous PRN Roberta Deras PA-C sodium phosphate 10.17 mmol in dextrose 5 % 250 mL IVPB 0.16 mmol/kg Intravenous PRN Roberta Deras PA-C Stopped at 07/06/19 0905 Or sodium phosphate 20.31 mmol in dextrose 5 % 250 mL IVPB 0.32 mmol/kg Intravenous PRN Roberta Deras PA-C Stopped at 07/05/19 1214 glucose (GLUTOSE) 40 % oral gel 15 g 15 g Oral PRN Roberta Deras PA-C glucagon (rDNA) injection 1 mg 1 mg Intramuscular PRN Roberta Deras PA-C dextrose 5 % solution 100 mL/hr Intravenous PRN Roberta Deras PA-C famotidine (PEPCID) injection 20 mg 20 mg Intravenous BID Roberta Deras PA-C 20 mg at 07/06/19 2236 insulin glargine (LANTUS) injection vial 12 Units 12 Units Subcutaneous Daily Fab Swift MD 12 Units at 07/06/19 0859 insulin lispro (HUMALOG) injection vial 2 Units 2 Units Subcutaneous TID Fab Swift MD 2 Units at 07/06/19 1700 insulin lispro (HUMALOG) injection vial 0-6 Units 0-6 Units Subcutaneous TID Fab Swift MD 1 Units at 07/06/19 1656 insulin lispro (HUMALOG) injection vial 0-3 Units 0-3 Units Subcutaneous Nightly Fab Swift MD 1 Units at 07/06/19 2236 venlafaxine (EFFEXOR XR) extended release capsule 150 mg 150 mg Oral Daily with breakfast Wesley Gary MD 150 mg at 07/06/19 0811 dextrose 50 % IV solution 12.5 g Intravenous PRN Roberta Deras PA-C dextrose 5% and 0.45% NaCl with KCl 20 mEq Stopped (07/05/19 1516) dextrose Data/ Recent Labs 07/04/19 1916 07/05/19 0711 07/06/19 0738 WBC 11.5* 11.8* 8.1 HGB 17.6* 13.0 13.7 HCT 53.0* 39.0 40.4 MCV 94.7 93.2 92.0 PLT 378 262 255 Recent Labs 07/06/19 0221 07/06/19 0737 07/06/19 1708 07/07/19 0525 NA 135 137 134* -- K 3.4* 3.2* 3.5 -- CL 105 106 102 -- CO2 18* 20* 21* -- GLUCOSE 208* 177* 192* -- PHOS 1.6* 2.1* 2.0* 1.6* MG 2.3 2.1 1.8 1.8 BUN 4* 3* 8 -- CREATININE 0.43* 0.46* 0.51* -- Assessment/ 1. Severe metabolic acidosis (improving, off bicarb gtt) 2. Diabetic keto acidosis (improving, off insulin gtt) 3. Non compliance with meds. 4. Lactic acidosis. 5. DM with hyperglycemia, uncontrolled. 6. COPD. Plan/ No renal panel today? - Good PO intake, agree with d/c IVF Mental status with improvement. - Tarun consulted, concern regarding reason for stopping medications, notes rec'd - Glucose better controlled, intermittent insulin - - - K is still low, agree with replacement - Na is stable - - - Will continue to follow closely [facility] [address] attempted diet education and review of weight history. She has continued very limited Hearing??? And participation with answering questions. Attempted To enforce need for bg control With little comprehension( again [place]??? Vs ams). Not able to educate/ interview this day. Patient seen by gi- refuses egd . Possible gastroparesis?? Finance issue? Bowel regimen ordered . Ate 1/[address] will start Ensure hi pro at bid at Breakfast , dinner -160 abdullahi, 16 gm pro/serving. Will continue to follow. [facility] Progress Note Subjective/ 43 y.o. year old female who we are seeing in consultation for metabolic acidosis. Interval Hx: Seen and examined Responsive to commands, lethargic Much improved overnight Bicarb drip stopped, LR now Insulin gtt stopped, endocrine consulted Acidosis improving significally, pH 7.36 this morning No CP, SOB, peripheral edema Good UOP with hendrix in place N/V improved ROS (-) unless mentioned above No changes in PFSH Objective/ Vitals: 07/06/19 0002 07/06/19 0102 07/06/19 0202 07/06/19 0302 BP: 100/72 112/70 96/65 100/65 Pulse: 82 89 87 77 Resp: Temp: 98 F (36.7 C) TempSrc: Oral SpO2: 98% 98% 98% 100% Weight: Height: 24HR INTAKE/OUTPUT: Intake/Output Summary (Last 24 hours) at 07/06/2019 1020 Last data filed at 07/06/2019 0600 Gross per 24 hour Intake 4952.5 ml Output 3100 ml Net 1852.5 ml Constitutional: Drrowsy, no apparent distress Head: AT NC Neck: supple, No JVD, no thyromegaly EENT: eyes nonicteric, MM dry Cardiovascular: RRR, S1, S2 without m/r/g Respiratory: CTA B without w/r/r Abdomen: soft, NT, ND Ext: no peripheral edema, no tremors Current Facility-Administered Medications Medication Dose Route Frequency Provider Last Rate Last Dose lactated ringers infusion Intravenous Continuous Roberta Deras PA-C 150 mL/hr at 07/06/19 0329 potassium chloride (KLOR-CON M) extended release tablet 40 mEq 40 mEq Oral PRN Roberta Deras PA-C 40 mEq at 07/06/19 0715 Or potassium bicarb-citric acid (EFFER-K) effervescent tablet 40 mEq 40 mEq Oral PRN Roberta Deras PA-C Or potassium chloride 10 mEq/100 mL IVPB (Peripheral Line) 10 mEq Intravenous PRN Roberta Deras PA-C docusate sodium (COLACE) capsule 100 mg 100 mg Oral BID Wesley Gary MD potassium phosphate 15 mmol in dextrose 5 % 250 mL IVPB 15 mmol Intravenous Once Fab Swift MD dextrose 5 % and 0.45 % NaCl with KCl 20 mEq infusion Intravenous Continuous PRN Roberta Deras PA-C Stopped at 07/05/19 1516 sodium chloride flush 0.9 % injection 10 mL 10 mL Intravenous 2 times per day SILVIA ChristopherC 10 mL at 07/06/19 0906 sodium chloride flush 0.9 % injection 10 mL 10 mL Intravenous PRN Roberta Deras PA-C magnesium hydroxide (MILK OF MAGNESIA) 400 MG/5ML suspension 30 mL 30 mL Oral Daily PRN Roberta Deras PA-C ondansetron (ZOFRAN) injection 4 mg 4 mg Intravenous Q6H PRN Roberta Deras PA-C heparin (porcine) injection 5,000 Units 5,000 Units Subcutaneous 3 times per day Roberta Deras PA-C 5,000 Units at 07/06/19 0715 ipratropium-albuterol (DUONEB) nebulizer solution 1 ampule 1 ampule Inhalation Q4H PRN Roberta Deras PA-C acetaminophen (TYLENOL) tablet 650 mg 650 mg Oral Q4H PRN SILVIA ChristopherC influenza quadrivalent split vaccine (FLUZONE;FLUARIX;FLULAVAL;AFLURI A) injection 0.5 mL 0.5 mL Intramuscular Once Roberta Deras PA-C magnesium sulfate 1 g in dextrose 5% 100 mL IVPB 1 g Intravenous PRN Roberta Deras PA-C sodium phosphate 10.17 mmol in dextrose 5 % 250 mL IVPB 0.16 mmol/kg Intravenous PRN Roberta Deras PA-C Stopped at 07/06/19 0905 Or sodium phosphate 20.31 mmol in dextrose 5 % 250 mL IVPB 0.32 mmol/kg Intravenous PRN Roberta Deras PA-C Stopped at 07/05/19 1214 glucose (GLUTOSE) 40 % oral gel 15 g 15 g Oral PRN Roberta Deras PA-C glucagon (rDNA) injection 1 mg 1 mg Intramuscular PRN Roberta Deras PA-C dextrose 5 % solution 100 mL/hr Intravenous PRN Roberta Deras PA-C famotidine (PEPCID) injection 20 mg 20 mg Intravenous BID Roberta Deras PA-C 20 mg at 07/06/19 0811 insulin glargine (LANTUS) injection vial 12 Units 12 Units Subcutaneous Daily Fab Swift MD 12 Units at 07/06/19 0859 insulin lispro (HUMALOG) injection vial 2 Units 2 Units Subcutaneous TID Fab Swift MD 2 Units at 07/06/19 0903 insulin lispro (HUMALOG) injection vial 0-6 Units 0-6 Units Subcutaneous TID Fab Swift MD 1 Units at 07/06/19 0858 insulin lispro (HUMALOG) injection vial 0-3 Units 0-3 Units Subcutaneous Nightly Fab Swift MD 1 Units at 07/05/19 2126 venlafaxine (EFFEXOR XR) extended release capsule 150 mg 150 mg Oral Daily with breakfast Wesley Gary MD 150 mg at 07/06/19 0811 dextrose 50 % IV solution 12.5 g Intravenous PRN Roberta Deras PA-C lactated ringers 150 mL/hr at 07/06/19 0329 dextrose 5% and 0.45% NaCl with KCl 20 mEq Stopped (07/05/19 1516) dextrose Data/ Recent Labs 07/04/19 1916 07/05/19 0711 07/06/19 0738 WBC 11.5* 11.8* 8.1 HGB 17.6* 13.0 13.7 HCT 53.0* 39.0 40.4 MCV 94.7 93.2 92.0 PLT 378 262 255 Recent Labs 07/05/19 2139 07/05/19 2339 07/06/19 0221 07/06/19 0737 NA 136 134* 135 137 K 3.5 3.2* 3.4* 3.2* CL 105 105 105 106 CO2 19* 18* 18* 20* GLUCOSE 189* 154* 208* 177* PHOS 2.2* -- 1.6* 2.1* MG 2.3 -- 2.3 2.1 BUN 5* 4* 4* 3* CREATININE 0.43* 0.43* 0.43* 0.46* Assessment/ 1. Severe metabolic acidosis (improving, off bicarb gtt) 2. Diabetic keto acidosis (improving, off insulin gtt) 3. Non compliance with meds. 4. Lactic acidosis. 5. DM with hyperglycemia, uncontrolled. 6. COPD. Plan/ - Agree with switch of bicarb drip to LR. Mental status with improvement. - Glucose better controlled, off insulin gtt - Continue to hold metformin, but most likely not metformin toxicity - - K is low, agree with K phos replacement - Na is better now with better glucose control - - Patient is critically ill - Will continue to follow closely [facility] Progress Note Patient: Denise Mendez : 1975 Acct: [id number] PCP: Wesley Gary MD Admitting Physician: Fab Swift MD Admission Date: 07/04/2019 Admitting Diagnosis: DKA, type 2, not at goal (HCC) [E11.10] DKA, type 2, not at goal (HCC) [E11.10] Unit/Bed: 222/2229 Hospital Day: 1 Code Status: Full Code Subjective: Overnight events: No acute overnight events Patient seems more alert this am. AO x 3. States that she feels better, but not back to baseline. Asking not to be discharged before she feels completely better. Remains on IVF with poor PO intake. VSS. Denies chest pain, shortness of breath, nausea, emesis, fever or chills. Objective: Vitals: 07/06/19 0002 07/06/19 0102 07/06/19 0202 07/06/19 0302 BP: 100/72 112/70 96/65 100/65 Pulse: 82 89 87 77 Resp: Temp: 98 F (36.7 C) TempSrc: Oral SpO2: 98% 98% 98% 100% Weight: Height: Intake/Output Summary (Last 24 hours) at 07/06/2019 0825 Last data filed at 07/06/2019 0600 Gross per 24 hour Intake 4952.5 ml Output 3100 ml Net 1852.5 ml Physical Exam Vitals signs and nursing note reviewed. Constitutional: Appearance: She is normal weight. She is ill-appearing. HENT: Mouth/Throat: Mouth: Mucous membranes are moist. Eyes: Pupils: Pupils are equal, round, and reactive to light. Cardiovascular: Rate and Rhythm: Normal rate and regular rhythm. Pulses: Normal pulses. Heart sounds: Normal heart sounds. No murmur. Pulmonary: Effort: Pulmonary effort is normal. No respiratory distress. Breath sounds: Normal breath sounds. No wheezing. Abdominal: General: Abdomen is flat. Bowel sounds are normal. There is no distension. Palpations: Abdomen is soft. Tenderness: There is tenderness (Improved compared to yesterday). Musculoskeletal: Normal range of motion. General: No swelling. Skin: General: Skin is warm. Capillary Refill: Capillary refill takes less than 2 seconds. Neurological: General: No focal deficit present. Mental Status: She is alert and oriented to person, place, and time. Psychiatric: Mood and Affect: Mood normal. Hendrix: No Drains: No Central Line/Port: No Diet: DIET CARB CONTROL; Medications: sodium chloride flush 10 mL Intravenous 2 times per day heparin (porcine) 5,000 Units Subcutaneous 3 times per day influenza virus vaccine 0.5 mL Intramuscular Once famotidine (PEPCID) injection 20 mg Intravenous BID insulin glargine 12 Units Subcutaneous Daily insulin lispro 2 Units Subcutaneous TID WC insulin lispro 0-6 Units Subcutaneous TID WC insulin lispro 0-3 Units Subcutaneous Nightly venlafaxine 150 mg Oral Daily with breakfast Continuous Infusions: lactated ringers 150 mL/hr at 07/06/19 0329 dextrose 5% and 0.45% NaCl with KCl 20 mEq Stopped (07/05/19 1516) dextrose PRN Meds:potassium chloride OR potassium alternative oral replacement OR potassium chloride, dextrose 5% and 0.45% NaCl with KCl 20 mEq, sodium chloride flush, magnesium hydroxide, ondansetron, ipratropium-albuterol, acetaminophen, magnesium sulfate, sodium phosphate IVPB OR sodium phosphate IVPB, glucose, glucagon (rDNA), dextrose, dextrose Labs: Recent Results (from the past 24 hour(s)) POCT Glucose Collection Time: 07/05/19 9:08 AM Result Value Ref Range POC Glucose 159 (H) 70 - 100 mg/dL POCT Glucose Collection Time: 07/05/19 10:16 AM Result Value Ref Range POC Glucose 159 (H) 70 - 100 mg/dL Urinalysis Collection Time: 07/05/19 11:19 AM Result Value Ref Range Glucose, Ur 500 Normal (<70) mg/dL Total Protein, Urine Negative Negative mg/dL Bilirubin Urine Negative Negative mg/dL Urobilinogen, Urine Normal Normal (0-1) mg/dL pH, Urine 5.5 5.0 - 8.0 NA Specific [place], Urine 1.007 1.005 - 1.030 NA Occult Blood,Urine Negative Negative mg/dL Ketones, Urine 10 Negative mg/dL Nitrite, Urine Negative Negative NA LEUKOCYTES, UA Negative Negative [place]/uL Appearance Clear Clear NA Color, Urine Colorless Lt. Yellow NA POCT Glucose Collection Time: 07/05/19 11:23 AM Result Value Ref Range POC Glucose 168 (H) 70 - 100 mg/dL POCT Arterial Collection Time: 07/05/19 11:31 AM Result Value Ref Range pH, Arterial 7.354 7.350 - 7.450 NA pCO2, Arterial 36.9 35.0 - 45.0 mm[Hg] pO2, Arterial 66.7 (L) 80.0 - 100.0 mm[Hg] HCO3, Arterial 20.6 (L) 21.0 - 25.0 mmol/L Base Excess, Arterial -4.5 (L) -3.0 - 3.0 mmol/L O2 Sat, Arterial 92.2 (L) 95.0 - 100.0 % TCO2, Arterial 21.7 (L) 23.0 - 27.0 mmol/L FIO2 Arterial 21 NA KETONES, BLOOD Collection Time: 07/05/19 11:44 AM Result Value Ref Range Ketones, Blood Negative Negative mg/dL PROCALCITONIN Collection Time: 07/05/19 11:44 AM Result Value Ref Range Procalcitonin 0.13 (A) <0.10 ng/mL Interpretation See Below NA TSH WITHOUT REFLEX Collection Time: 07/05/19 11:44 AM Result Value Ref Range TSH 0.506 0.465 - 4.680 u[IU]/mL CORTISOL TOTAL Collection Time: 07/05/19 11:44 AM Result Value Ref Range Cortisol 17.9 ug/dL Prealbumin Collection Time: 07/05/19 11:44 AM Result Value Ref Range Prealbumin 6.0 (L) 17.6 - 36.0 mg/dL POCT Glucose Collection Time: 07/05/19 11:56 AM Result Value Ref Range POC Glucose 170 (H) 70 - 100 mg/dL Basic Metabolic Panel Collection Time: 07/05/19 12:43 PM Result Value Ref Range Sodium 134 (L) 135 - 145 mmol/L Potassium 2.1 (LL) 3.5 - 5.1 mmol/L Chloride 110 (H) 98 - 107 mmol/L CO2 20 (L) 22 - 30 mmol/L Anion Gap 3 NA Glucose 181 (H) 70 - 100 mg/dL BUN 6 (L) 7 - 20 mg/dL CREATININE 0.33 (L) 0.52 - 1.25 mg/dL eGFR >60.0 >60 mL/min EGFR IF NonAfrican [place]er >60.0 >60 mL/min Calcium 5.5 (LL) 8.4 - 10.4 mg/dL Magnesium Collection Time: 07/05/19 12:43 PM Result Value Ref Range Magnesium 2.0 1.6 - 2.3 mg/dL Phosphorus Collection Time: 07/05/19 12:43 PM Result Value Ref Range Phosphorus <0.5 (L) 2.5 - 4.5 mg/dL POCT Glucose Collection Time: 07/05/19 1:11 PM Result Value Ref Range POC Glucose 165 (H) 70 - 100 mg/dL POCT Glucose Collection Time: 07/05/19 2:08 PM Result Value Ref Range POC Glucose 143 (H) 70 - 100 mg/dL POCT Glucose Collection Time: 07/05/19 4:00 PM Result Value Ref Range POC Glucose 69 (L) 70 - 100 mg/dL POCT Arterial Collection Time: 07/05/19 4:10 PM Result Value Ref Range pH, Arterial 7.421 7.350 - 7.450 NA pCO2, Arterial 34.7 (L) 35.0 - 45.0 mm[Hg] pO2, Arterial 72.8 (L) 80.0 - 100.0 mm[Hg] HCO3, Arterial 22.6 21.0 - 25.0 mmol/L Base Excess, Arterial -1.4 -3.0 - 3.0 mmol/L O2 Sat, Arterial 94.9 (L) 95.0 - 100.0 % TCO2, Arterial 23.6 23.0 - 27.0 mmol/L FIO2 Arterial 21 NA POCT Glucose Collection Time: 07/05/19 5:36 PM Result Value Ref Range POC Glucose 151 (H) 70 - 100 mg/dL POCT Glucose Collection Time: 07/05/19 9:28 PM Result Value Ref Range POC Glucose 191 (H) 70 - 100 mg/dL Basic Metabolic Panel Collection Time: 07/05/19 9:39 PM Result Value Ref Range Sodium 136 135 - 145 mmol/L Potassium 3.5 3.5 - 5.1 mmol/L Chloride 105 98 - 107 mmol/L CO2 19 (L) 22 - 30 mmol/L Anion Gap 12 NA Glucose 189 (H) 70 - 100 mg/dL BUN 5 (L) 7 - 20 mg/dL CREATININE 0.43 (L) 0.52 - 1.25 mg/dL eGFR >60.0 >60 mL/min EGFR IF NonAfrican [place] >60.0 >60 mL/min Calcium 6.9 (L) 8.4 - 10.4 mg/dL Magnesium Collection Time: 07/05/19 9:39 PM Result Value Ref Range Magnesium 2.3 1.6 - 2.3 mg/dL Phosphorus Collection Time: 07/05/19 9:39 PM Result Value Ref Range Phosphorus 2.2 (L) 2.5 - 4.5 mg/dL CALCIUM, IONIZED Collection Time: 07/05/19 9:39 PM Result Value Ref Range Ionized Ca 4.00 (L) 4.30 - 5.20 mg/dL pH, Bld 7.31 7.31 - 7.46 NA Beta-Hydroxybutyrate Collection Time: 07/05/19 11:39 PM Result Value Ref Range Beta-Hydroxybutyrate 30.90 (H) 0.20 - 2.81 mg/dL Lactic Acid, Plasma Collection Time: 07/05/19 11:39 PM Result Value Ref Range Lactic Acid 1.8 0.7 - 2.0 mmol/L KETONES, BLOOD Collection Time: 07/05/19 11:39 PM Result Value Ref Range Ketones, Blood Small (15) (A) Negative mg/dL Basic Metabolic Panel Collection Time: 07/05/19 11:39 PM Result Value Ref Range Sodium 134 (L) 135 - 145 mmol/L Potassium 3.2 (L) 3.5 - 5.1 mmol/L Chloride 105 98 - 107 mmol/L CO2 18 (L) 22 - 30 mmol/L Anion Gap 10 NA Glucose 154 (H) 70 - 100 mg/dL BUN 4 (L) 7 - 20 mg/dL CREATININE 0.43 (L) 0.52 - 1.25 mg/dL eGFR >60.0 >60 mL/min EGFR IF NonAfrican [place] >60.0 >60 mL/min Calcium 6.8 (L) 8.4 - 10.4 mg/dL Urinalysis Collection Time: 07/05/19 11:44 PM Result Value Ref Range Glucose, Ur 500 Normal (<70) mg/dL Total Protein, Urine Negative Negative mg/dL Bilirubin Urine Negative Negative mg/dL Urobilinogen, Urine Normal Normal (0-1) mg/dL pH, Urine 6.0 5.0 - 8.0 NA Specific [place], Urine 1.010 1.005 - 1.030 NA Occult Blood,Urine Negative Negative mg/dL Ketones, Urine 60 Negative mg/dL Nitrite, Urine Negative Negative NA LEUKOCYTES, UA Negative Negative Maria Del Carmen/uL Appearance Clear Clear NA Color, Urine Light-Yellow Lt. Yellow NA Add On Lab Test Collection Time: 07/06/19 12:39 AM Result Value Ref Range Add On Accepted NA Basic Metabolic Panel Collection Time: 07/06/19 2:21 AM Result Value Ref Range Sodium 135 135 - 145 mmol/L Potassium 3.4 (L) 3.5 - 5.1 mmol/L Chloride 105 98 - 107 mmol/L CO2 18 (L) 22 - 30 mmol/L Anion Gap 12 NA Glucose 208 (H) 70 - 100 mg/dL BUN 4 (L) 7 - 20 mg/dL CREATININE 0.43 (L) 0.52 - 1.25 mg/dL eGFR >60.0 >60 mL/min EGFR IF NonAfrican [place] >60.0 >60 mL/min Calcium 9.6 8.4 - 10.4 mg/dL Magnesium Collection Time: 07/06/19 2:21 AM Result Value Ref Range Magnesium 2.3 1.6 - 2.3 mg/dL Phosphorus Collection Time: 07/06/19 2:21 AM Result Value Ref Range Phosphorus 1.6 (L) 2.5 - 4.5 mg/dL Calcium, Ionized Collection Time: 07/06/19 2:21 AM Result Value Ref Range Ionized Ca 5.60 (H) 4.30 - 5.20 mg/dL pH, Bld 7.33 7.31 - 7.46 NA POCT Glucose Collection Time: 07/06/19 4:28 AM Result Value Ref Range POC Glucose 202 (H) 70 - 100 mg/dL Basic Metabolic Panel Collection Time: 07/06/19 7:37 AM Result Value Ref Range Sodium 137 135 - 145 mmol/L Potassium 3.2 (L) 3.5 - 5.1 mmol/L Chloride 106 98 - 107 mmol/L CO2 20 (L) 22 - 30 mmol/L Anion Gap 11 NA Glucose 177 (H) 70 - 100 mg/dL BUN 3 (L) 7 - 20 mg/dL CREATININE 0.46 (L) 0.52 - 1.25 mg/dL eGFR >60.0 >60 mL/min EGFR IF NonAfrican [place] >60.0 >60 mL/min Calcium 8.0 (L) 8.4 - 10.4 mg/dL Magnesium Collection Time: 07/06/19 7:37 AM Result Value Ref Range Magnesium 2.1 1.6 - 2.3 mg/dL Phosphorus Collection Time: 07/06/19 7:37 AM Result Value Ref Range Phosphorus 2.1 (L) 2.5 - 4.5 mg/dL Hepatic Function Panel Collection Time: 07/06/19 7:37 AM Result Value Ref Range Albumin,Serum 3.0 (L) 3.5 - 5.0 g/dL Total Protein 5.4 (L) 6.3 - 8.2 g/dL Total Bilirubin 0.3 0.2 - 1.3 mg/dL Bilirubin, Direct 0.0 0.0 - 0.3 mg/dL Alkaline Phosphatase 56 38 - 126 U/L ALT 26 13 - 69 U/L AST 17 15 - 46 U/L CBC auto differential Collection Time: 07/06/19 7:38 AM Result Value Ref Range WBC 8.1 3.6 - 10.7 10*3/uL RBC 4.40 3.80 - 5.20 10*6/uL Hemoglobin 13.7 11.7 - 16.0 g/dL Hematocrit 40.4 35.0 - 47.0 % MCV 92.0 79.0 - 98.0 fL MCH 31.0 26.0 - 34.0 pg MCHC 33.8 32.0 - 36.0 % RDW 13.8 11.5 - 14.5 % Platelets 255 140 - 440 10*3/uL MPV 8.2 7.4 - 10.4 fL Granulocytes % 73.9 40.0 - 80.0 % Lymphocyte % 18.9 (L) 20.0 - 40.0 % Monocytes 6.6 2.0 - 10.0 % Eosinophils 0.1 (L) 1.0 - 6.0 % Basophils 0.5 0.0 - 2.0 % Absolute Neut # 6.0 1.8 - 7.0 10*3/uL Absolute Lymph # 1.5 1.0 - 4.3 10*3/uL Absolute Fannin # 0.5 0.0 - 0.8 10*3/uL Absolute Eos # 0.0 0.0 - 0.5 10*3/uL Absolute Baso # 0.0 0.0 - 0.2 10*3/uL CALCIUM, IONIZED Collection Time: 07/06/19 7:38 AM Result Value Ref Range Ionized Ca 4.40 4.30 - 5.20 mg/dL pH, Bld 7.36 7.31 - 7.46 NA POCT Glucose Collection Time: 07/06/19 8:06 AM Result Value Ref Range POC Glucose 160 (H) 70 - 100 mg/dL ASSESSMENT/PLAN: Active Hospital Problems Diagnosis DKA, type 2, not at goal (HCC) [E11.10] Lactic acidemia [E87.2] Hypothermia [T68.XXXA] Diabetic ketoacidosis without coma associated with type 2 diabetes mellitus (HCC) [E11.10] 1. DKA with severe Anion Gap Metabolic acidosis with lactic acidosis Stable. Patient improving. - ICU level of care - IVF: LR @ 150 mL/hr - Labs: BMP, Mg, Phos q4, BGT QAC/HS - Insulin regimen: Lantus 12 units daily, Humalog 2 units TID, LDSSI - [facility] Endocrinology and Nephrology recs - Zofran 4mg Iv q6 PRN - Daily CBC - Hold Home regimen: -Humalog 3U before breakfast, 2U before lunch, 4U before dinner plus sliding scale w/ max 26U daily -Basaglar 18U nightly -Metformin 500mg BID Abdominal pain likely 2/2 # 1 vs gastric distension - Awaiting GI recs - Bowel regimen: Miralex and colace BID - Management per # 1 Hypothermia 2/2 suspected sepsis T 93 F >>98 F - resolved. BCx showed gram + cocci, awaiting second BCx. UCx NG - Consider starting Vanc and Zosyn Malnutrition with suspected Refeeding syndrome No hx of anorexia or etoh use - Monitor Mg/Phos q4hr Asthma - Albuterol - Hold Singular Mild Leukocytosis likely reactive - Continue to monitor Depression - Continue Effexor 150mg QAM, 75mg QHS? - Hold Remeron 15mg q nightly - Hold Trazadone 50mg q nightly FEN/GI/DVT: IVF: LR @ 150 Electrolytes: Monitor and replace per protocols Diet: Carb control GI PPX: No DVT Prophylaxis: SubQ hep DISPOSITION: ICU level of care, possibly transfer to [facility] today Critical Care Note: Patient - Denise Mendez, Age - 43 y.o. - 1975 Room Number - [id number] [facility] [id number] Date of Admission - 07/04/2019 6:20 PM Hospital Day - 1 HPI/Subjective 07/06 Patient doing better, off insulin and bicarb drip Had severe hypokalemia, being replaced Awake and alert , tolerating diet well Bicarb slowly improving Endocrinology consult appreciated GI consult awaited Bl Cx gram positive cocci, final identification pending, suspect contaminant 07/05 Admitted through ER with c/o abd pain, N/V, generalized pain , noted to be in severe metabolic acidosis, DKA, lactic acidosis with high an ion gap, started on bicarb and insulin drip. Had episode of hypothermia, placed on warming blanket Patient was on metformin, concern was this is the cause of lactic acidosis, nephrology was consulted No Cultures were obtained Patient currently sleepy, easily awake, followeing simple commands appropriately Coming out of DKA CT Abdomen Gastric distension Colonic ileus ? Enteritis Hx of Asthma, depression, DM, hyperlipidemia Active Hospital Problem List Active Hospital Problems Diagnosis Date Noted DKA, type 2, not at goal (HCC) [E11.10] 07/05/2019 Lactic acidemia [E87.2] 07/05/2019 Hypothermia [T68.XXXA] 07/05/2019 Diabetic ketoacidosis without coma associated with type 2 diabetes mellitus (HCC) [E11.10] Events of Past 24 Hours as noted above All other systems reviewed Vitals height is 4' 11 (1.499 m) and weight is 144 lb 6.4 oz (65.5 kg). Her oral temperature is 98 F (36.7 C). Her blood pressure is 100/65 and her pulse is 77. Her respiration is 19 and oxygen saturation is 100%. Range Data Temperature Range: Temp: 98 F (36.7 C)Temp Av.1 F (36.7 C) Min: 97.9 F (36.6 C) Max: 98.3 F (36.8 C) BP Range: Systolic (24hrs), Av , Min:90 , Max:112 Diastolic (24hrs), Av, Min:58, Max:87 Pulse Range: Pulse Av.4 Min: 77 Max: 108 Respiration Range: Resp Av.2 Min: 16 Max: 30SpO2: 100 % 24hr Pulse Ox Range: SpO2 Av.9 % Min: 96 % Max: 100 % I/O Intake/Output Summary (Last 24 hours) at 07/06/2019 0626 Last data filed at 07/05/2019 2158 Gross per 24 hour Intake 4052.5 ml Output 2300 ml Net 1752.5 ml I/O last 3 completed shifts: In: 7063.8 [I.V.:3760.8; IV Piggyback:3303] Out: 3575 [Urine:3575] Patient Vitals for the past 96 hrs (Last 3 readings): Weight 07/05/19 0250 144 lb 6.4 oz (65.5 kg) 07/04/19 1823 140 lb (63.5 kg) Lines, ET tube, Devices Lines - peripheral Medications sodium chloride flush 10 mL Intravenous 2 times per day heparin (porcine) 5,000 Units Subcutaneous 3 times per day influenza virus vaccine 0.5 mL Intramuscular Once famotidine (PEPCID) injection 20 mg Intravenous BID insulin glargine 12 Units Subcutaneous Daily insulin lispro 2 Units Subcutaneous TID WC insulin lispro 0-6 Units Subcutaneous TID WC insulin lispro 0-3 Units Subcutaneous Nightly venlafaxine 150 mg Oral Daily with breakfast PRN potassium chloride OR potassium alternative oral replacement OR potassium chloride, dextrose 5% and 0.45% NaCl with KCl 20 mEq, sodium chloride flush, magnesium hydroxide, ondansetron, ipratropium-albuterol, acetaminophen, magnesium sulfate, sodium phosphate IVPB OR sodium phosphate IVPB, glucose, glucagon (rDNA), dextrose, dextrose IV lactated ringers 150 mL/hr at 07/06/19 0329 dextrose 5% and 0.45% NaCl with KCl 20 mEq Stopped (07/05/19 1516) dextrose Diet/Nutrition DIET FULL LIQUID; Carb Control: 5 carb choices (75 gms)/meal Exam Constitutional - awake and alert No distress General Appearance No acute distress Lying comfortably on bed HEENT - Normocephalic, atraumatic. PERRLA, sclarea is anicteric, conjunctiva is pink, nasal mucosa is normal, no congestion, external ears are intact. Pupil normal reacting Lungs - Poor air entry bilaterally, diminished breathe sounds at the bases, on obvious wheezing or crackles. Chest expands equally, no wheezes, rales or rhonchi. Cardiovascular - Heart sounds are normal. normal rate and rhythm regular, no murmur, gallop or rub. Abdomen - soft, nontender, nondistended, no masses or organomegaly Neurologic - CN II-XII are grossly intact. There are no focal motor deficits grossly Pupil normal reacting reflexes diminished Sensory diminished Non focal exam Skin - no bruising or bleeding, good turgor, normal warmth Extremities - no cyanosis, clubbing or edema Lab Results CBC Lab Results Component Value Date WBC 11.8 07/05/2019 RBC 4.19 07/05/2019 HGB 13.0 07/05/2019 HCT 39.0 07/05/2019 PLT 262 07/05/2019 MCV 93.2 07/05/2019 MCH 31.0 07/05/2019 MCHC 33.2 07/05/2019 RDW 13.6 07/05/2019 LYMPHOPCT 8.8 07/05/2019 MONOPCT 7.4 07/05/2019 BASOPCT 0.1 07/05/2019 MONOSABS 0.9 07/05/2019 LYMPHSABS 1.0 07/05/2019 EOSABS 0.0 07/05/2019 BASOSABS 0.0 07/05/2019 BMP Lab Results Component Value Date NA 135 07/06/2019 K 3.4 07/06/2019 CL 105 07/06/2019 CO2 18 07/06/2019 BUN 4 07/06/2019 CREATININE 0.43 07/06/2019 GLUCOSE 208 07/06/2019 IONCA 5.60 07/06/2019 LFTS Lab Results Component Value Date ALKPHOS 50 07/05/2019 ALT 24 07/05/2019 AST 15 07/05/2019 PROT 5.5 07/05/2019 BILITOT 0.3 07/05/2019 BILIDIR 0.0 07/05/2019 LABALBU 3.0 07/05/2019 ABG Lab Results Component Value Date PH 7.33 07/06/2019 No results found for: IFIO2, MODE, SETTIDVOL, SETPEEP INR No results found for: INR, PROTIME APTT No results for input(s): APTT in the last 72 hours. Lactic Acid Lab Results Component Value Date LACTA 1.8 07/05/2019 LACTA 2.0 07/05/2019 LACTA 2.3 07/05/2019 BNP No results for input(s): BNP in the last 72 hours. Cultures Blood/ urine Radiology CXR Not available ASSESSMENT AND PLAN # Profound metabolic acidosis/ lactic acidemia/ Diabetic keto acidosis with elevated anion gap, much improved Off insulin drip/ Bicarb drip Off metformin Follow lytes and replete as needed Nephrology/ endocrinology consulted, noted # Nausea/ vomiting/ abdominal pain/ gastric distension/ colonic ileus, clinically improved May be explained by DKA CT Abdomen/ pelvis as above On PPI/ Zofran prn GI consulted Adequate pain control # Hypothermia, etiology not clear/ 1/2 positive blood Cx, suspect contamination Vargas Cx, procal level, Check TSH/ cortisol level normal Cxray, negative Hold antibiotics for now Follow final Cx result # Hx of Asthma Appears to be in remission Continue Albuterol prn # Leukocytosis, ? Reactive, improved Follow cbc Follow Cx result # Hx of Depression Resume meds as tolerated # FEN, diet as tolerated Replete lytes # DVT/ GI prophylaxis On lovenox/ pepcid # Code status-- full code Wean oxygen as tolerated. Keep O2 sat 90-92% Stress ulcer prophylaxis Use replacement protocols DVT prophylaxis Case discussed with nurse and MTS service. Questions and concerns addressed. Total critical care time provided was 35 Minutes This time is exclusive of time spend performing procedures. Nutrition Assessment Type and Reason for Visit: Initial, Positive Nutrition Screen(pt admitted with dka - now off insulin drip- has bed bugs) Nutrition Recommendations: 1) suggest 1800 carb Controlled diet as goal- pt with very poor intake at present - slow to respond - currently on 2000 carb controlled FLD. Minimal responses at present 2) possible hd? 3) Monitor labs, status, intakes to reassess. Educate ? Monitor need for oral supplement Nutrition Assessment: 43 yr old admitted with abd pain,, hx dm, asthma. Depression, PTSD.HLPHad not been taking medications except for a few doses in the last couple of weeks.After several inquiries admits to not taking insulin at home but has some at home(presents to the emergency department with complaint of abdominal pain. Pain is across her entire abdomen at the level of the umbilicus. Also associated with nausea and vomiting 5 times since the pain began ) Malnutrition Assessment: Malnutrition Status: Insufficient data Context: Acute illness or injury Findings of the 6 clinical characteristics of malnutrition (Minimum of 2 out of 6 clinical characteristics is required to make the diagnosis of moderate or severe Protein Calorie Malnutrition based on AND/ASPEN Guidelines): 1. Energy Intake-Unable to assess, Unable to assess 2. Weight Loss-(poor historian), 3. Fat Loss-Unable to assess, 4. Muscle Loss- , 5. Fluid Accumulation-No significant fluid accumulation, 6. Quality Assurance Coach Strength-Not measured Nutrition Risk Level: High Nutrient Needs: Estimated Daily Total Kcal: 1300- 1650 Estimated Daily Protein (g): 53-89 Estimated Daily Total Fluid (ml/day): per Nutrition Diagnosis: Problem: Inadequate oral intake Etiology: related to Pain, Endocrine dysfunction, Psychological cause/life stress(poss ileus or ovarian cyst- not taking dm meds) ? Signs and symptoms: as evidenced by Intake 0-25%, Lab values Objective Information: Nutrition-Focused Physical Findings: very fatigued, nauseated . hbiac 9.9, bun 6-low , pab 6 but was fluid resusitated ?r, i/o+4.4 liters, taking bites FLD, laura 14 Wound Type: None Current Nutrition Therapies: Oral Diet Orders: Carb Control 5 Carbs/Meal, Full Liquid Oral Diet intake: Unable to assess Oral Nutrition Supplement (ONS) Orders: None ONS intake: (na) Anthropometric Measures: Ht: 4' 11 (149.9 cm) Current Body Wt: 144 lb (65.3 kg)(07/05) Admission Body Wt: 140 lb (63.5 kg)() Usual Body Wt: 154 lb (69.9 kg)(08/31/18) % Weight Change: , down 10 lbs in 10 mo or 6% in 10 mos [place] Body Wt: 98 lb (44.5 kg), % [place] Body 147 Adjusted Body Wt: , body weight adjusted for BMI Classification: BMI 25.0 - 29.9 Overweight(29.2) Nutrition Interventions: Continue current diet(poss hd) Continued Inpatient Monitoring, Education Needed, Education not appropriate at this time Nutrition Evaluation: Evaluation: Goals set Goals: pt will receive ,tolerate adequate nutrition with safe swallow- labs trend toward baseline Monitoring: Meal Intake, Diet Tolerance, Skin Integrity, I&O, Mental Status/Confusion, Weight, Pertinent Labs, Chewing/Swallowing, Nausea or Vomiting, Constipation, Monitor Hemodynamic Status, Monitor Bowel Function Contact Number: [phone] Medical Teaching Service Progress Note Patient: Denise Mendez : 1975 Acct: [id number] PCP: Wesley Gary MD Admitting Physician: Fab Swift MD Admission Date: 07/04/2019 Admitting Diagnosis: DKA, type 2, not at goal (HCC) [E11.10] DKA, type 2, not at goal (HCC) [E11.10] Unit/Bed: 222/2229 Hospital Day: 0 Code Status: Full Code Subjective: Overnight events: Admitted to hospital Patient seems lethargic in appearance, but slowly responds to verbal command. Remains on IVF and HCO3 gtt. HR improving from 100s to 90s and temp improved from 93 F >> 98.1 F. Denies chest pain, shortness of breath, nausea, emesis, fever or chills. Objective: Vitals: 07/05/19 0800 07/05/19 0802 07/05/19 0806 07/05/19 0901 BP: 97/64 107/76 95/70 Pulse: 99 108 97 Resp: Temp: 98.2 F (36.8 C) 98.1 F (36.7 C) TempSrc: Rectal Rectal SpO2: 97% 99% Weight: Height: Intake/Output Summary (Last 24 hours) at 07/05/2019 1022 Last data filed at 07/05/2019 0602 Gross per 24 hour Intake 4011.28 ml Output 1275 ml Net 2736.28 ml Physical Exam Vitals signs and nursing note reviewed. Constitutional: Appearance: She is obese. She is ill-appearing. HENT: Mouth/Throat: Mouth: Mucous membranes are moist. Cardiovascular: Rate and Rhythm: Regular rhythm. Tachycardia present. Pulses: Normal pulses. Heart sounds: Normal heart sounds. No murmur. Pulmonary: Effort: Pulmonary effort is normal. No respiratory distress. Breath sounds: Normal breath sounds. No wheezing. Abdominal: General: Abdomen is flat. Bowel sounds are normal. There is no distension. Palpations: Abdomen is soft. Tenderness: There is tenderness. Musculoskeletal: Normal range of motion. General: No swelling. Neurological: Mental Status: She is alert. Hendrix: No Drains: No Central Line/Port: No Diet: Diet NPO Effective Now Medications: sodium chloride flush 10 mL Intravenous 2 times per day heparin (porcine) 5,000 Units Subcutaneous 3 times per day [START ON 07/06/2019] influenza virus vaccine 0.5 mL Intramuscular Once famotidine (PEPCID) injection 20 mg Intravenous BID Continuous Infusions: dextrose 5% and 0.45% NaCl with KCl 20 mEq 100 mL/hr at 07/05/19 0319 dextrose IV infusion builder 150 mL/hr at 07/05/19 0601 sodium chloride Stopped (07/05/19 0030) insulin 0.1 Units/kg/hr (07/05/19 0932) PRN Meds:dextrose 5% and 0.45% NaCl with KCl 20 mEq, sodium chloride flush, magnesium hydroxide, ondansetron, ipratropium-albuterol, acetaminophen, magnesium sulfate, sodium phosphate IVPB OR sodium phosphate IVPB, glucose, glucagon (rDNA), dextrose, dextrose, potassium chloride Labs: Recent Results (from the past 24 hour(s)) POCT Glucose Collection Time: 07/04/19 6:33 PM Result Value Ref Range POC Glucose 263 (H) 70 - 100 mg/dL Basic Metabolic Panel Collection Time: 07/04/19 7:16 PM Result Value Ref Range Sodium 132 (L) 135 - 145 mmol/L Potassium 3.9 3.5 - 5.1 mmol/L Chloride 99 98 - 107 mmol/L CO2 6 (L) 22 - 30 mmol/L Anion Gap 27 NA Glucose 311 (H) 70 - 100 mg/dL BUN 12 7 - 20 mg/dL CREATININE 0.88 0.52 - 1.25 mg/dL eGFR >60.0 >60 mL/min EGFR IF NonAfrican [place] >60.0 >60 mL/min Calcium 9.6 8.4 - 10.4 mg/dL Hemogram (CBC) w/Auto Diff Collection Time: 07/04/19 7:16 PM Result Value Ref Range WBC 11.5 (H) 3.6 - 10.7 10*3/uL RBC 5.60 (H) 3.80 - 5.20 10*6/uL Hemoglobin 17.6 (H) 11.7 - 16.0 g/dL Hematocrit 53.0 (H) 35.0 - 47.0 % MCV 94.7 79.0 - 98.0 fL MCH 31.4 26.0 - 34.0 pg MCHC 33.1 32.0 - 36.0 % RDW 14.0 11.5 - 14.5 % Platelets 378 140 - 440 10*3/uL MPV 8.3 7.4 - 10.4 fL Granulocytes % 88.3 (H) 40.0 - 80.0 % Lymphocyte % 6.7 (L) 20.0 - 40.0 % Monocytes 4.6 2.0 - 10.0 % Eosinophils 0.0 (L) 1.0 - 6.0 % Basophils 0.4 0.0 - 2.0 % Absolute Neut # 10.1 (H) 1.8 - 7.0 10*3/uL Absolute Lymph # 0.8 (L) 1.0 - 4.3 10*3/uL Absolute Fannin # 0.5 0.0 - 0.8 10*3/uL Absolute Eos # 0.0 0.0 - 0.5 10*3/uL Absolute Baso # 0.1 0.0 - 0.2 10*3/uL Hepatic Function Panel Collection Time: 07/04/19 7:16 PM Result Value Ref Range Albumin,Serum 4.8 3.5 - 5.0 g/dL Total Protein 8.7 (H) 6.3 - 8.2 g/dL Total Bilirubin 0.7 0.2 - 1.3 mg/dL Bilirubin, Direct 0.0 0.0 - 0.3 mg/dL Alkaline Phosphatase 101 38 - 126 U/L ALT 12 (L) 13 - 69 U/L AST 22 15 - 46 U/L Lipase Collection Time: 07/04/19 7:16 PM Result Value Ref Range Lipase 55 23 - 300 U/L Magnesium Collection Time: 07/04/19 7:16 PM Result Value Ref Range Magnesium 1.7 1.6 - 2.3 mg/dL Urinalysis Collection Time: 07/04/19 8:22 PM Result Value Ref Range Glucose, Ur >1,000 Normal (<70) mg/dL Total Protein, Urine 100 Negative mg/dL Bilirubin Urine Negative Negative mg/dL Urobilinogen, Urine Normal Normal (0-1) mg/dL pH, Urine 5.5 5.0 - 8.0 NA Specific [place], Urine 1.019 1.005 - 1.030 NA Occult Blood,Urine 0.03 Negative mg/dL Ketones, Urine >150 Negative mg/dL Nitrite, Urine Negative Negative NA LEUKOCYTES, UA Negative Negative Maria Del Carmen/uL Appearance Clear Clear NA Color, Urine Light-Yellow Lt. Yellow NA RBC, UA 0-2 0 - 2 /[HPF] WBC, UA Negative 0 - 5 /[HPF] Squam Epithel, UA 0-2 3 - 5 /[HPF] Bacteria, UA Few (1-5) Negative /[HPF] Mucous Threads Few Negative /[LPF] Urine Drug Screen Collection Time: 07/04/19 8:22 PM Result Value Ref Range Amphetamines, urine Negative NA Barbiturates, Ur Negative NA Benzodiazepine Ur Qual Negative NA Cocaine Metabolites, Ur Negative NA Methadone, Urine Negative NA Opiates, Urine Negative NA Oxycodone Screen, Ur Negative NA PCP, Urine Negative NA Add On Lab Test Collection Time: 07/04/19 9:58 PM Result Value Ref Range Add On Accepted NA POCT Glucose Collection Time: 07/04/19 10:14 PM Result Value Ref Range POC Glucose 278 (H) 70 - 100 mg/dL POCT Venous Collection Time: 07/04/19 11:09 PM Result Value Ref Range pH, Jose 6.812 (L) 7.330 - 7.430 NA pCO2, Jose 26.9 (L) 40.0 - 55.0 mm[Hg] pO2, Jose 32.8 30.0 - 50.0 mm[Hg] HCO3, Venous 4.3 (L) 23.0 - 27.0 mmol/L Base Excess, Jose -29.9 (L) -3.0 - 3.0 mmol/L O2 Sat, Jose 27.3 (L) 60.0 - 85.0 % TC02 (Calc), Jose 5.1 (L) 24.0 - 28.0 mmol/L FIO2 Venous 21 NA POCT Glucose Collection Time: 07/04/19 11:14 PM Result Value Ref Range POC Glucose 320 (H) 70 - 100 mg/dL POCT Glucose Collection Time: 07/05/19 12:18 AM Result Value Ref Range POC Glucose 236 (H) 70 - 100 mg/dL POCT Arterial Collection Time: 07/05/19 12:22 AM Result Value Ref Range pH, Arterial 6.826 (LL) 7.350 - 7.450 NA pCO2, Arterial 25.4 (L) 35.0 - 45.0 mm[Hg] pO2, Arterial 127.3 (H) 80.0 - 100.0 mm[Hg] HCO3, Arterial 4.2 (L) 21.0 - 25.0 mmol/L Base Excess, Arterial -29.6 (L) -3.0 - 3.0 mmol/L O2 Sat, Arterial 94.2 (L) 95.0 - 100.0 % TCO2, Arterial <5.0 (L) 23.0 - 27.0 mmol/L FIO2 Arterial 21 NA POCT Glucose Collection Time: 07/05/19 1:17 AM Result Value Ref Range POC Glucose 234 (H) 70 - 100 mg/dL POCT Glucose Collection Time: 07/05/19 2:50 AM Result Value Ref Range POC Glucose 195 (H) 70 - 100 mg/dL Basic Metabolic Panel Collection Time: 07/05/19 2:51 AM Result Value Ref Range Sodium 138 135 - 145 mmol/L Potassium 3.2 (L) 3.5 - 5.1 mmol/L Chloride 110 (H) 98 - 107 mmol/L CO2 8 (L) 22 - 30 mmol/L Anion Gap 19 NA Glucose 198 (H) 70 - 100 mg/dL BUN 11 7 - 20 mg/dL CREATININE 0.62 0.52 - 1.25 mg/dL eGFR >60.0 >60 mL/min EGFR IF NonAfrican [place] >60.0 >60 mL/min Calcium 7.1 (L) 8.4 - 10.4 mg/dL Magnesium Collection Time: 07/05/19 2:51 AM Result Value Ref Range Magnesium 1.5 (L) 1.6 - 2.3 mg/dL Phosphorus Collection Time: 07/05/19 2:51 AM Result Value Ref Range Phosphorus 1.1 (L) 2.5 - 4.5 mg/dL Beta-Hydroxybutyrate Collection Time: 07/05/19 2:51 AM Result Value Ref Range Beta-Hydroxybutyrate 51.10 (H) 0.20 - 2.81 mg/dL KETONES, BLOOD Collection Time: 07/05/19 2:51 AM Result Value Ref Range Ketones, Blood Small (15) (A) Negative mg/dL Hemoglobin A1C Collection Time: 07/05/19 2:51 AM Result Value Ref Range Hemoglobin A1C 9.9 (H) 4.0 - 5.7 % eAG 237 mg/dL POCT Glucose Collection Time: 07/05/19 3:56 AM Result Value Ref Range POC Glucose 179 (H) 70 - 100 mg/dL POCT Arterial Collection Time: 07/05/19 4:11 AM Result Value Ref Range pH, Arterial 7.022 (LL) 7.350 - 7.450 NA pCO2, Arterial 33.6 (L) 35.0 - 45.0 mm[Hg] pO2, Arterial 62.0 (L) 80.0 - 100.0 mm[Hg] HCO3, Arterial 8.7 (L) 21.0 - 25.0 mmol/L Base Excess, Arterial -21.4 (L) -3.0 - 3.0 mmol/L O2 Sat, Arterial 78.4 (L) 95.0 - 100.0 % TCO2, Arterial 9.7 (L) 23.0 - 27.0 mmol/L FIO2 Arterial 21 NA Lactic acid, plasma Collection Time: 07/05/19 4:14 AM Result Value Ref Range Lactic Acid 2.3 (HH) 0.7 - 2.0 mmol/L POCT Glucose Collection Time: 07/05/19 5:10 AM Result Value Ref Range POC Glucose 128 (H) 70 - 100 mg/dL POCT Glucose Collection Time: 07/05/19 6:10 AM Result Value Ref Range POC Glucose 128 (H) 70 - 100 mg/dL POCT Glucose Collection Time: 07/05/19 7:08 AM Result Value Ref Range POC Glucose 152 (H) 70 - 100 mg/dL Basic Metabolic Panel Collection Time: 07/05/19 7:11 AM Result Value Ref Range Sodium 132 (L) 135 - 145 mmol/L Potassium 3.1 (L) 3.5 - 5.1 mmol/L Chloride 108 (H) 98 - 107 mmol/L CO2 14 (L) 22 - 30 mmol/L Anion Gap 10 NA Glucose 145 (H) 70 - 100 mg/dL BUN 10 7 - 20 mg/dL CREATININE 0.52 0.52 - 1.25 mg/dL eGFR >60.0 >60 mL/min EGFR IF NonAfrican [place] >60.0 >60 mL/min Calcium 7.2 (L) 8.4 - 10.4 mg/dL Magnesium Collection Time: 07/05/19 7:11 AM Result Value Ref Range Magnesium 2.5 (H) 1.6 - 2.3 mg/dL Phosphorus Collection Time: 07/05/19 7:11 AM Result Value Ref Range Phosphorus 0.5 (L) 2.5 - 4.5 mg/dL CBC auto differential Collection Time: 07/05/19 7:11 AM Result Value Ref Range WBC 11.8 (H) 3.6 - 10.7 10*3/uL RBC 4.19 3.80 - 5.20 10*6/uL Hemoglobin 13.0 11.7 - 16.0 g/dL Hematocrit 39.0 35.0 - 47.0 % MCV 93.2 79.0 - 98.0 fL MCH 31.0 26.0 - 34.0 pg MCHC 33.2 32.0 - 36.0 % RDW 13.6 11.5 - 14.5 % Platelets 262 140 - 440 10*3/uL MPV 8.0 7.4 - 10.4 fL Granulocytes % 83.7 (H) 40.0 - 80.0 % Lymphocyte % 8.8 (L) 20.0 - 40.0 % Monocytes 7.4 2.0 - 10.0 % Eosinophils 0.0 (L) 1.0 - 6.0 % Basophils 0.1 0.0 - 2.0 % Absolute Neut # 9.9 (H) 1.8 - 7.0 10*3/uL Absolute Lymph # 1.0 1.0 - 4.3 10*3/uL Absolute Fannin # 0.9 (H) 0.0 - 0.8 10*3/uL Absolute Eos # 0.0 0.0 - 0.5 10*3/uL Absolute Baso # 0.0 0.0 - 0.2 10*3/uL Lactic acid, plasma Collection Time: 07/05/19 7:11 AM Result Value Ref Range Lactic Acid 2.0 0.7 - 2.0 mmol/L CALCIUM, IONIZED Collection Time: 07/05/19 7:11 AM Result Value Ref Range Ionized Ca 4.40 4.30 - 5.20 mg/dL pH, Bld 7.21 (L) 7.31 - 7.46 NA Hepatic Function Panel Collection Time: 07/05/19 7:11 AM Result Value Ref Range Albumin,Serum 3.0 (L) 3.5 - 5.0 g/dL Total Protein 5.5 (L) 6.3 - 8.2 g/dL Total Bilirubin 0.3 0.2 - 1.3 mg/dL Bilirubin, Direct 0.0 0.0 - 0.3 mg/dL Alkaline Phosphatase 50 38 - 126 U/L ALT 24 13 - 69 U/L AST 15 15 - 46 U/L POCT Glucose Collection Time: 07/05/19 8:07 AM Result Value Ref Range POC Glucose 155 (H) 70 - 100 mg/dL POCT Glucose Collection Time: 07/05/19 9:08 AM Result Value Ref Range POC Glucose 159 (H) 70 - 100 mg/dL ASSESSMENT/PLAN: Active Hospital Problems Diagnosis DKA, type 2, not at goal (HCC) [E11.10] Lactic acidemia [E87.2] Hypothermia [T68.XXXA] Diabetic ketoacidosis without coma associated with type 2 diabetes mellitus (HCC) [E11.10] 1. DKA with severe Anion Gap Metabolic acidosis with lactic acidosis Pt with metabolic acidosis, anion gap 24. BG 311. UA with ketones >150, glucose >1000. VBG PH 6.8 - ICU level of care - DKA protocol - NPO - IVF: NS @ 250 mL/hr Bicarb gtt 100 ml/hr - Labs: BMP, Mg, Phos q4, BHT q8, LA q6, VBG q4 - Zofran 4mg Iv q6 PRN - Daily CBC - Hold Home regimen: -Humalog 3U before breakfast, 2U before lunch, 4U before dinner plus sliding scale w/ max 26U daily -Basaglar 18U nightly -Metformin 500mg BID Abdominal pain likely 2/2 # 1 vs gastric distension - GI consult - Management per # 1 Hypothermia T 93 F >>98.1 - FU vargas cx - Follow up TSH, cortisol - Hold abx for now Asthma - Albuterol - Hold Singular Mild Leukocytosis likely reactive - Continue to monitor Depression - Hold Effexor 150mg q morning, 75mg q nightly - hold Remeron 15mg q nightly - hold Trazadone 50mg q nightly FEN/GI/DVT: IVF: NS @ 250 mL/hr, NaHCo3 @ 150 mL/hr Electrolytes: Monitor and replace per protocols Diet: NPO GI PPX: No DVT Prophylaxis: Lovenox DISPOSITION: ICU level of care Progress Note @@ Patient: Denise Mendez Unit[facility]/2229 Date of : 1975 Acct: [id number] Admitting Diagnosis: DKA, type 2, not at goal (HCC) [E11.10] DKA, type 2, not at goal (HCC) [E11.10] Admit Date: 07/04/2019 Hospital Day: 0 Subjective: Patient admitted for DKA. Comp of vomiting and abd pain. Sees endocrine. Last A1c 9.9 in September of 2018. Currently - sleeping. Was hypothermic last night. Responded to warming blanket. Labs slowly improving. NPO. Patient Seen, Chart, Labs, Radiology studies, and Consults reviewed. Objective: BP 95/70 Pulse 97 Temp 98.1 F (36.7 C) (Rectal) Resp 18 Ht 4' 11 (1.499 m) Wt 144 lb 6.4 oz (65.5 kg) SpO2 99% BMI 29.17 kg/m In: 4011.3 [I.V.:611.3] Out: 1275 [Urine:1275] Patient Vitals for the past 96 hrs (Last 3 readings): Weight 07/05/19 0250 144 lb 6.4 oz (65.5 kg) 07/04/19 1823 140 lb (63.5 kg) Physical Exam GEN - asleep, in NAD HEART- S1S2 RRR, no M/G/R LUNG- CTA No W/R/R, good air exchange ABD- Soft NT,ND EXT- No edema Neuro - TBD Hendrix:Yes Drains:No Central Line/port:No Diet: Diet NPO Effective Now Medications: sodium chloride flush 10 mL Intravenous 2 times per day heparin (porcine) 5,000 Units Subcutaneous 3 times per day [START ON 07/06/2019] influenza virus vaccine 0.5 mL Intramuscular Once famotidine (PEPCID) injection 20 mg Intravenous BID Continuous Infusions: dextrose 5% and 0.45% NaCl with KCl 20 mEq 100 mL/hr at 07/05/19 0319 dextrose IV infusion builder 150 mL/hr at 07/05/19 0601 sodium chloride Stopped (07/05/19 0030) insulin 0.1 Units/kg/hr (07/05/19 0932) PRN Meds:dextrose 5% and 0.45% NaCl with KCl 20 mEq, sodium chloride flush, magnesium hydroxide, ondansetron, ipratropium-albuterol, acetaminophen, magnesium sulfate, sodium phosphate IVPB OR sodium phosphate IVPB, glucose, glucagon (rDNA), dextrose, dextrose, potassium chloride Data: CBC: Recent Labs 07/04/19191507/05/19 0711 WBC 11.5* 11.8* RBC 5.60* 4.19 HGB 17.6* 13.0 HCT 53.0* 39.0 MCV 94.7 93.2 RDW 14.0 13.6 PLT 378 262 BMP: Recent Labs 07/04/19191507/05/19 0251 07/05/19 0711 NA 132* 138 132* K 3.9 3.2* 3.1* CL 99 110* 108* CO2 6* 8* 14* BUN 12 11 10 CREATININE 0.88 0.62 0.52 GLUCOSE 311* 198* 145* CALCIUM 9.6 7.1* 7.2* ANIONGAP 27 19 10 LIVER PROFILE: Recent Labs 07/04/19191507/05/19 0711 AST 22 15 ALT 12* 24 BILITOT 0.7 0.3 ALKPHOS 101 50 LABALBU 4.8 3.0* PROT 8.7* 5.5* PT/INR:No results for input(s): PROTIME, INR in the last 72 hours. CARDIAC ENZYMES: No results for input(s): TROPONINI in the last 72 hours. Procalcitonin: Lab Results Component Value Date PROCAL <0.10 01/22/2017 Glucose: Recent Labs 07/05/19 0356 07/05/19 0510 07/05/19 0610 07/05/19 0708 07/05/19 0807 07/05/19 0908 POCGLU 179* 128* 128* 152* 155* 159* Safety/Discharge prep checklist: Patient is at cognitive baseline: TBD Patient is at functional baseline: TBD Patient has baseline oral intake x 24 hours: No Patient is on all oral medication: TBD Assessment/Plan: 1. Patient Active Problem List Diagnosis Date Noted DKA, type 2, not at goal ([facility]) 07/05/2019 Allergic conjunctivitis and rhinitis, bilateral 06/07/2018 COPD suggested by initial evaluation ([facility]) 06/06/2016 Diabetes type 2, uncontrolled ([facility]) 04/21/2016 Chronic pain of left knee 04/21/2016 Depression Overview Note: PTSD DVT Prophylaxis: heparin GI PPX: yes Dispo: ICU recs, nephro consulted for bicarb. Cont insulin drip, fluids, bicarb, monitor labs, sepsis work up, Electronically signedby Angy Torres MD on 07/05/2019 at 9:47 AM Critical Care Note: Patient - Denise Mendez, Age - 43 y.o. - 1975 Room Number - 222/2229 [facility] [id number] Date of Admission - 07/04/2019 6:20 PM Hospital Day - 0 HPI/Subjective 07/05 Admitted through ER with c/o abd pain, N/V, generalized pain , noted to be in severe metabolic acidosis, DKA, lactic acidosis with high an ion gap, started on bicarb and insulin drip. Had episode of hypothermia, placed on warming blanket Patient was on metformin, concern was this is the cause of lactic acidosis, nephrology was consulted No Cultures were obtained Patient currently sleepy, easily awake, followeing simple commands appropriately Coming out of DKA CT Abdomen Gastric distension Colonic ileus ? Enteritis Hx of Asthma, depression, DM, hyperlipidemia Active Hospital Problem List Active Hospital Problems Diagnosis Date Noted DKA, type 2, not at goal (HCC) [E11.10] 07/05/2019 Events of Past 24 Hours as noted above All other systems reviewed Vitals height is 4' 11 (1.499 m) and weight is 144 lb 6.4 oz (65.5 kg). Her rectal temperature is 97.9 F (36.6 C). Her blood pressure is 95/70 and her pulse is 97. Her respiration is 18 and oxygen saturation is 99%. Range Data Temperature Range: Temp: 97.9 F (36.6 C)Temp Av.6 F (35.9 C) Min: 93 F (33.9 C) Max: 98.2 F (36.8 C) BP Range: Systolic (24hrs), Av , Min:95 , Max:150 Diastolic (24hrs), Av, Min:63, Max:98 Pulse Range: Pulse Av.3 Min: 97 Max: 114 Respiration Range: Resp Av.8 Min: 16 Max: 30SpO2: 99 % 24hr Pulse Ox Range: SpO2 Av.1 % Min: 94 % Max: 100 % I/O Intake/Output Summary (Last 24 hours) at 07/05/2019 0933 Last data filed at 07/05/2019 0602 Gross per 24 hour Intake 4011.28 ml Output 1275 ml Net 2736.28 ml I/O last 3 completed shifts: In: 4011.3 [I.V.:611.3; IV Piggyback:3400] Out: 1275 [Urine:1275] Date 07/05/19 0000 - 07/05/19 235 Shift 0373-9937 7884-6319 7524-2768 24 Hour Total INTAKE I.V.(mL/kg) 611.3(9.3) 611.3(9.3) IV Piggyback(mL/kg) 2400(36.6) 2400(36.6) Shift Total(mL/kg) 3011.3(46) 3011.3(46) OUTPUT Urine(mL/kg/hr) 1275(2.4) 1275 Shift Total(mL/kg) 1275(19.5) 1275(19.5) Weight (kg) 65.5 65.5 65.5 65.5 Patient Vitals for the past 96 hrs (Last 3 readings): Weight 07/05/19 0250 144 lb 6.4 oz (65.5 kg) 07/04/19 1823 140 lb (63.5 kg) Lines, ET tube, Devices Lines - peripheral Medications sodium chloride flush 10 mL Intravenous 2 times per day heparin (porcine) 5,000 Units Subcutaneous 3 times per day [START ON 07/06/2019] influenza virus vaccine 0.5 mL Intramuscular Once famotidine (PEPCID) injection 20 mg Intravenous BID PRN dextrose 5% and 0.45% NaCl with KCl 20 mEq, sodium chloride flush, magnesium hydroxide, ondansetron, ipratropium-albuterol, acetaminophen, magnesium sulfate, sodium phosphate IVPB OR sodium phosphate IVPB, glucose, glucagon (rDNA), dextrose, dextrose, potassium chloride IV dextrose 5% and 0.45% NaCl with KCl 20 mEq 100 mL/hr at 07/05/19 0319 dextrose IV infusion builder 150 mL/hr at 07/05/19 0601 sodium chloride Stopped (07/05/19 0030) insulin 0.1 Units/kg/hr (07/05/19 0932) Diet/Nutrition Diet NPO Effective Now Exam Constitutional - sleepy, easily awake General Appearance No acute distress Lying comfortably on bed HEENT - Normocephalic, atraumatic. PERRLA, sclarea is anicteric, conjunctiva is pink, nasal mucosa is normal, no congestion, external ears are intact. Pupil normal reacting Lungs - Poor air entry bilaterally, diminished breathe sounds at the bases, on obvious wheezing or crackles. Chest expands equally, no wheezes, rales or rhonchi. Cardiovascular - Heart sounds are normal. normal rate and rhythm regular, no murmur, gallop or rub. Abdomen - soft, nontender, nondistended, no masses or organomegaly Neurologic - CN II-XII are grossly intact. There are no focal motor deficits grossly Pupil normal reacting reflexes diminished Sensory diminished Skin - no bruising or bleeding, good turgor, normal warmth Extremities - no cyanosis, clubbing or edema Lab Results CBC Lab Results Component Value Date WBC 11.8 07/05/2019 RBC 4.19 07/05/2019 HGB 13.0 07/05/2019 HCT 39.0 07/05/2019 PLT 262 07/05/2019 MCV 93.2 07/05/2019 MCH 31.0 07/05/2019 MCHC 33.2 07/05/2019 RDW 13.6 07/05/2019 LYMPHOPCT 8.8 07/05/2019 MONOPCT 7.4 07/05/2019 BASOPCT 0.1 07/05/2019 MONOSABS 0.9 07/05/2019 LYMPHSABS 1.0 07/05/2019 EOSABS 0.0 07/05/2019 BASOSABS 0.0 07/05/2019 BMP Lab Results Component Value Date NA 132 07/05/2019 K 3.1 07/05/2019 CL 108 07/05/2019 CO2 14 07/05/2019 BUN 10 07/05/2019 CREATININE 0.52 07/05/2019 GLUCOSE 145 07/05/2019 IONCA 4.40 07/05/2019 LFTS Lab Results Component Value Date ALKPHOS 50 07/05/2019 ALT 24 07/05/2019 AST 15 07/05/2019 PROT 5.5 07/05/2019 BILITOT 0.3 07/05/2019 BILIDIR 0.0 07/05/2019 LABALBU 3.0 07/05/2019 ABG Lab Results Component Value Date PH 7.21 07/05/2019 No results found for: IFIO2, MODE, SETTIDVOL, SETPEEP INR No results found for: INR, PROTIME APTT No results for input(s): APTT in the last 72 hours. Lactic Acid Lab Results Component Value Date LACTA 2.0 07/05/2019 LACTA 2.3 07/05/2019 LACTA 2.2 09/17/2018 BNP No results for input(s): BNP in the last 72 hours. Cultures Blood/ urine Radiology CXR Not available ASSESSMENT AND PLAN # Profound metabolic acidosis/ lactic acidemia/ Diabetic keto acidosis with elevated anion gap, resolving acidosis On insulin drip/ Bicarb drip Off metformin Follow lytes and replete as needed Nephrology/ endocrinology consulted # Nausea/ vomiting/ abdominal pain/ gastric distension/ colonic ileus May be explained by DKA CT Abdomen/ pelvis as above On PPI/ Zofran prn GI consulted Adequate pain control # Hypothermia, etiology not clear Vargas Cx, procal level, Check TSH/ cortisol level Cxray Hold antibiotics for now # Hx of Asthma Appears to be in remission Continue Albuterol prn # Leukocytosis, ? Reactive Follow cbc Follow Cx result # Hx of Depression Hold po meds for now Resume as able # FEN, keep npo for now Replete lytes # DVT/ GI prophylaxis On lovenox/ pepcid # Code status-- full code Wean oxygen as tolerated. Keep O2 sat 90-92% Stress ulcer prophylaxis Use replacement protocols DVT prophylaxis Case discussed with nurse and MTS service. Questions and concerns addressed. Total critical care time provided was 45 Minutes This time is exclusive of time spend performing procedures. Critical Care Note: Patient - Denise Mendez, Age - 43 y.o. - 1975 Room Number - 222/2229 [facility] - [id number] [facility] # - [id number] Date of Admission - 07/04/2019 6:20 PM Hospital Day - 0 Please see today's completed note HPI/Subjective Active Hospital Problem List Active Hospital Problems Diagnosis Date Noted DKA, type 2, not at goal (HCC) [E11.10] 07/05/2019 Events of Past 24 Hours All other systems reviewed Vitals height is 4' 11 (1.499 m) and weight is 144 lb 6.4 oz (65.5 kg). Her rectal temperature is 93 F (33.9 C). Her blood pressure is 107/66 and her pulse is 108. Her respiration is 22 and oxygen saturation is 94%. Range Data Temperature Range: Temp: 93 F (33.9 C)Temp Av.6 F (35.3 C) Min: 93 F (33.9 C) Max: 98.2 F (36.8 C) BP Range: Systolic (24hrs), Av , Min:97 , Max:150 Diastolic (24hrs), Av, Min:63, Max:98 Pulse Range: Pulse Av.5 Min: 100 Max: 114 Respiration Range: Resp Av.4 Min: 16 Max: 30SpO2: 94 % 24hr Pulse Ox Range: SpO2 Av.2 % Min: 94 % Max: 100 % I/O Intake/Output Summary (Last 24 hours) at 07/05/2019 0626 Last data filed at 07/05/2019 0601 Gross per 24 hour Intake 4011.28 ml Output Net 4011.28 ml I/O last 3 completed shifts: In: 1000 [IV Piggyback:1000] Out: - Date 07/05/19 0000 - 07/05/19 2359 Shift 7827-7959 3412-5984 0838-2952 24 Hour Total INTAKE I.V.(mL/kg) 611.3(9.3) 611.3(9.3) IV Piggyback(mL/kg) 2400(36.6) 2400(36.6) Shift Total(mL/kg) 3011.3(46) 3011.3(46) OUTPUT Shift Total(mL/kg) Weight (kg) 65.5 65.5 65.5 65.5 Patient Vitals for the past 96 hrs (Last 3 readings): Weight 07/05/19 0250 144 lb 6.4 oz (65.5 kg) 07/04/19 1823 140 lb (63.5 kg) Lines, ET tube, Devices Lines - Medications sodium chloride flush 10 mL Intravenous 2 times per day heparin (porcine) 5,000 Units Subcutaneous 3 times per day [START ON 07/06/2019] influenza virus vaccine 0.5 mL Intramuscular Once magnesium sulfate 4 g Intravenous Once famotidine (PEPCID) injection 20 mg Intravenous BID PRN dextrose 5% and 0.45% NaCl with KCl 20 mEq, sodium chloride flush, magnesium hydroxide, ondansetron, ipratropium-albuterol, acetaminophen, magnesium sulfate, sodium phosphate IVPB OR sodium phosphate IVPB, glucose, glucagon (rDNA), dextrose, dextrose, potassium chloride IV dextrose 5% and 0.45% NaCl with KCl 20 mEq 100 mL/hr at 07/05/19 0319 dextrose IV infusion builder 150 mL/hr at 07/05/19 0601 sodium chloride Stopped (07/05/19 0030) insulin 0.132 Units/kg/hr (07/05/19 0250) Diet/Nutrition Diet NPO Effective Now Exam Constitutional - Awake General Appearance well developed, well nourished HEENT - Normocephalic, atraumatic. PERRLA, sclarea is anicteric, conjunctiva is pink, nasal mucosa is normal, no congestion, external ears are intact. Lungs - Poor air entry bilaterally, diminished breathe sounds at the bases, on obvious wheezing or crackles. Chest expands equally, no wheezes, rales or rhonchi. Cardiovascular - Heart sounds are normal. normal rate and rhythm regular, no murmur, gallop or rub. Abdomen - soft, nontender, nondistended, no masses or organomegaly Neurologic - CN II-XII are grossly intact. There are no focal motor deficits grossly Skin - no bruising or bleeding, good turgor, normal warmth Extremities - no cyanosis, clubbing or edema Lab Results CBC Lab Results Component Value Date WBC 11.5 07/04/2019 RBC 5.60 07/04/2019 HGB 17.6 07/04/2019 HCT 53.0 07/04/2019 PLT 378 07/04/2019 MCV 94.7 07/04/2019 MCH 31.4 07/04/2019 MCHC 33.1 07/04/2019 RDW 14.0 07/04/2019 LYMPHOPCT 6.7 07/04/2019 MONOPCT 4.6 07/04/2019 BASOPCT 0.4 07/04/2019 MONOSABS 0.5 07/04/2019 LYMPHSABS 0.8 07/04/2019 EOSABS 0.0 07/04/2019 BASOSABS 0.1 07/04/2019 BMP Lab Results Component Value Date NA 138 07/05/2019 K 3.2 07/05/2019 CL 110 07/05/2019 CO2 8 07/05/2019 BUN 11 07/05/2019 CREATININE 0.62 07/05/2019 GLUCOSE 198 07/05/2019 LFTS Lab Results Component Value Date ALKPHOS 101 07/04/2019 ALT 12 07/04/2019 AST 22 07/04/2019 PROT 8.7 07/04/2019 BILITOT 0.7 07/04/2019 BILIDIR 0.0 07/04/2019 LABALBU 4.8 07/04/2019 ABG No results found for: PH, PCO2, PO2, HCO3, O2SAT No results found for: IFIO2, MODE, SETTIDVOL, SETPEEP INR No results found for: INR, PROTIME APTT No results for input(s): APTT in the last 72 hours. Lactic Acid Lab Results Component Value Date LACTA 2.3 07/05/2019 LACTA 2.2 09/17/2018 BNP No results for input(s): BNP in the last 72 hours. Cultures Radiology CXR Reviewed (See actual reports for details) ASSESSMENT AND PLAN Wean oxygen as tolerated. Keep O2 sat 90-92% Stress ulcer prophylaxis Use replacement protocols DVT prophylaxis Case discussed with nurse and patient/family. Questions and concerns addressed. Total critical care time provided was 0 This time is exclusive of time spend performing procedures. documented in this encounter [facility] Work Phone: documented in this encounter [facility] Work Phone: Evaluation note* Diagnosis Diabetic ketoacidosis without coma associated with type 2 diabetes mellitus (HCC)- Primary Generalized abdominal pain Abdominal pain, generalized Intractable vomiting with nausea, unspecified vomiting type Uncontrolled type 2 diabetes mellitus without complication, with long-term current use of insulin ([facility]) DKA, type 2, not at goal ([facility]) Type II or unspecified type diabetes mellitus with ketoacidosis, uncontrolled Lactic acidemia Hypothermia Effects of hypothermia Unspecified mood (affective) disorder ([facility]) Paronychia of finger of right hand Severe malnutrition ([facility]) Nutritional marasmus documented in this encounter [facility] Work Phone: Evaluation note* Diagnosis URI with cough and congestion- Primary Acute non-recurrent sinusitis, unspecified location documented in this encounter [facility] note* Diagnosis Acute cough- Primary Asthma with COPD with exacerbation ([facility]) Chronic obstructive asthma with exacerbation documented in this encounter [facility] note* Diagnosis Type 2 diabetes mellitus with hyperglycemia, with long-term current use of insulin ([facility]) ([facility])- Primary Hyperlipidemia associated with type 2 diabetes mellitus ([facility]) Low serum C-peptide Encounter for therapeutic drug monitoring documented in this encounter [facility] note* Diagnosis Type 2 diabetes mellitus with hyperglycemia, with long-term current use of insulin ([facility]) ([facility]) documented in this encounter [facility] note* Diagnosis Type 2 diabetes mellitus with hyperglycemia, with long-term current use of insulin ([facility])- Primary Hyperlipidemia associated with type 2 diabetes mellitus (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 * Hand Laceration: Stitches (Slovenian) documented in this encounter Assessments Diagnosis Laceration of left hand without foreign body, initial encounter Chief Complaint Chief Complaint Description Start Date right ring finger post incis ion and debridement of skin and right ring finger on 07/08/2019 Preliminary chief co mplaint data, not yet signed by the author as of Instructions Instruction Description Start Date Patient advised to follow-up with Primary Care Physician for BMI management. Review of System There may be information available, but it has not been provided by the sender. Family History There may be information available, but it has not been provided by the sender.No Family History Records FoundNo Family History Records FoundNo Family History Records Found History of Present Illness There may be information available, but it has not been provided by the sender. Summary Purpose Reason for Referral Specialty Diagnoses / Procedures Referred By Camilla hollingsworth Referred To Contact Swapna Henriquez, QUALITY CONTROL REPRESENTATIVE - DIE TESTER [address] [place] [address] Referral ID Status Reason Start Date Expiration Date V isits Requested Visits Authorized [id number] Pending Review 1 1 Additional Source Comments Reason for Visit (unrecogniz ed section and content) Reason For Visit Description Start Date Postop - 1st visit Preliminary reason f or visit data, not yet signed by the author as of right ring finger post incis ion and debridement of skin and right ring finger on 07/08/2019 Reason Comments Arm Pain Reason Comments Abdominal Pain Reason Comments Cough Cough, sinus, [place] and fever x 3 days Reason Comments Cough Cough, mucus, conges tion x 1 month Reason Comments Follow-up Diabetes Mellitus Reason Onset Date Comments Med Refill 10/23/2022 Reason Onset Date Comments Results 09/22/2022 Reason Comments Med Refill Reason Comments Diabetes Mellitus Follow up Ordered Prescriptions (unrec ognized section and content) Scheduled Active and Recently Administ ered Medications (unrecognized section and content) INFORMATION SOURCE (unrecogn ized section and content) DATE CREATED AUTHOR AUTHOR'S ORGANIZ ATION 10/23/2022 [facility] DATE CREATED AUTHOR AUTHOR'S ORGANGUNNAR ATION 07/31/2023 [facility] Source Comments (unrecognize d section and content) In the event this informatio n is protected by the Federal Confidentiality of Alcohol and Drug Abuse Patient Records regulations: The Federal rules restrict any use of the information to criminally investigate or prosecute any alcohol or drug abuse patient.[facility] the event this information is protected by the Federal Confidentiality of Alcohol and Drug Abuse Patient Records regulations: The Federal rules restrict any use of the information to criminally investigate or prosecute any alcohol or drug abuse patient.[facility] Care Teams (unrecognized sec tion and content) Consumer Advocate Relationship Specialty Start Date End Date System, Provider Not In DO NOT CHANGE DO NOT CHANGE, [place] PCP - General 10/23/22 Consumer Advocate Relationship Specialty Start Date End Date System, Provider Not In DO NOT CHANGE DO NOT CHANGE, [place] PCP - General 10/23/22 Consumer Advocate Relationship Specialty Start Date End Date System, Provider Not In DO NOT CHANGE DO NOT CHANGE, [place] PCP - General 10/23/22 Consumer Advocate Relationship Specialty Start Date End Date System, Provider Not In DO NOT CHANGE DO [place]ANGE, [place] PCP - General 10/23/22 FOR RECORDS PERTAINING TO PATIENTS WHO ARE OR HAVE BEEN ENROLLED IN A CHEMICAL DEPENDENCY/SUBSTANCEABUSE PROGRAM, SOME INFORMATION MAY BE OMITTED. This clinical summary was aggregated from multiple sources. Caution should be exercised in using it in the provision of clinical care. This summary normalizes information from multiple sources, and as a consequence, information in this document may materially change the coding, format and clinical context of patient data. In addition, data may be omitted in some cases. CLINICAL DECISIONS SHOULD BE BASED ON THE PRIMARY CLINICAL RECORDS. [employer] [facility]. provides no warranty or guarantee of the accuracy or completeness of information in this document.
[2023-08-06 10:22] LABS: Absolute Neutrophil Count 3.4 X10^3/uL (2.0-7.7); Basophil# 0.02 X10^3/uL; Basophil% 0.4 % (0-1); Eosinophil# 0.09 X10^3/uL; Eosinophils% 1.6 % (0-5); Hematocrit 40.7 % (37-47); Hemoglobin 13.3 g/dL (12.0-15.0); Lymphocyte % 31.8 % (19-41); Mean Corp Hgb Conc 32.7 g/dL (32-36); Mean Corpuscular Hgb 30.5 pg (27.0-32.0); Mean Corpuscular Volume 93.3 fL (81-99); Mean Platelet Vol. 10.2 fl (6.2-12.0); Monocyte# 0.38 X10^3/uL; Monocyte% 6.7 % (0-10); NRBC Flagged by Analyzer 0 % (0-5); Neutrophil # 3.36 X10^3/uL (2.7-7.7); Neutrophil % 59.3 % (47-70); Platelet Count 334 K/mm3 (150-450); RBC Distribution Width CV 12.7 % (11.6-14.6); RBC Distribution Width SD 43.7 fl (35.1-43.9); Red Blood Count 4.36 M/mm3 (4.2-5.4); White Blood Count 5.7 K/mm3 (4.4-11.0)
[2023-08-06 10:55] LABS: ALB/GLOB Ratio 1.1 RATIO (0.9-2.4); AST(SGOT) 14 U/L (15-37); Alanine Aminotransfer ALT/SGPT 13 U/L (13-56); Albumin, Serum 3.7 g/dL (3.2-5.0); Alkaline Phosphatase 43 U/L (45-117); Anion Gap 3 (5-15); BUN 17 mg/dL (7-18); BUN/Creat Ratio 23.4 RATIO (10-20); Calcium,Total 9.7 mg/dL (8.5-10.1); Chloride 105 mmol/L (98-107); Cholesterol 172 mg/dL (200); Creatinine, Serum 0.73 mg/dL (0.55-1.02); EST Glomerular Filtration Rate 91 mL/min (>60); Est Glom Filt Rate - Afr Amer 111 mL/min (>60); Globulin 3.4 g/dL (2.2-4.2); Glucose 133 mg/dL (74-106); High Density Lipoprotein 76 mg/dL; Potassium 4.6 mmol/L (3.5-5.1); Protein, Total 7.1 g/dL (6.4-8.2); Sodium Level 138 mmol/L (136-145); Thyroid Stim Hormone (TSH) 2.78 uIU/mL (0.358-3.74); Triglycerides 76 mg/dL; Very Low Density Lipoprotein 15 mg/dL (5-40)
[2023-08-06 12:51] LABS: Microalbumin,Random Urine 14.7 mg/L (NO RANGE EST.); Microalbumin:Creatinine Ratio 14.1 mg/g CRE (<30 mg/g CRE)
[2023-08-07 16:09] LABS: Endomysial Antibody IgA Negative (Negative); Immunoglobulin A 151 mg/dL (87-352); t-Transglutaminase IgA <2 U/mL (0-3)
== END | disposition home or self-care (01) ==
PROVIDERS: PCP Internal Medicine; Referring Provider Internal Medicine; Visit Provider Internal Medicine
DX: R10.9 Unspecified abdominal pain (principal); E11.9 Type 2 diabetes mellitus without complications; K80.20 Calculus of gallbladder without cholecystitis without obstruction; G89.29 Other chronic pain
CPT/HCPCS: 36415; 76705; 80053; 80061; 82043; 82570; 82784; 83516; 84443; 85025; 86255

== ENCOUNTER 2024-01-29 13:56 | Emergency (ER) | payer MEDICAID, SELFPAY ==
[2024-01-29 13:57] VITALS: BP 130/94; PULSE 99; RESP 16; TEMP 35.9; O2SAT 97; BMI 25.2
--- NOTE | 2024-01-29 14:17 | ED.VIS.GI ---
HPI HPI - GI History of Present Illness Chief Complaint: Abd Pain Detail of Chief Complaint: Abdominal pain Informant: patient Narrative Narrative: Patient presents emergency department complaint of abdominal pain that she has had for at least 2 to 3 months. Patient describes intermittent right upper abdomen pain and bloating. Patient has been seen by general surgeon Dr. Harris. She has had a CT scan imaging in 2022 and then had a liver ultrasound in July 2023 that showed gallstones and sludge but no other evidence of cholecystitis. Patient states sometimes food makes the pain worse. She has had nausea but no vomiting. She has had no fever. She denies blood in her stool or black tarry stools. She also has history of some chronic constipation. She takes lactulose. Last bowel movement was yesterday. PFSH [facility] Medical History Hyperlipidemia Loss of hearing Wears glasses Wears dentures PTSD (post-traumatic stress disorder) Depression Anxiety Substance abuse Marijuana use Insulin dependent diabetes mellitus Migraine headache Dietary restriction History of IBS Gastric reflux Former smoker Asthma Leg cramps Home Medications ?Medication ?Instructions ?Recorded ?Last Taken ?Type insulin aspart U-100 100 unit/mL 2 unit subcut TID 11/23/22 Unknown History (3 mL) subcutaneous pen (Novolog FlexPen U-100 Insulin aspart) insulin glargine 100 unit/mL (3 12 unit subcut QHS 11/23/22 Unknown History mL) subcutaneous pen (Lantus Solostar U-100 Insulin) lactulose 10 gram/15 mL oral 15 g PO TID 05/26/23 Unknown History solution albuterol sulfate 90 mcg/actuation 1 inh inhalation DIRECTED #8.5 07/08/23 Unknown Rx aerosol inhaler grams budesonide-formoterol HFA 80 1 inh inhalation DIRECTED SOB 07/08/23 Unknown Rx mcg-4.5 mcg/actuation aerosol #10.2 grams inhaler (Symbicort) metformin 500 mg tablet 500 mg PO BID 07/08/23 Unknown History dulaglutide 0.75 mg/0.5 mL 0.75 mg (0.5 mL) subcut QWEEK #2 mL 09/14/23 Unknown Rx subcutaneous pen injector (CogniSens) flash glucose sensor (FreeStyle #2 ea 09/14/23 Unknown Rx Norberto 2 Sensor kit) atorvastatin 10 mg tablet 10 mg PO QHS #90 tabs 09/28/23 Unknown Rx sucralfate 1 gram tablet 1 g PO QACHS #56 tabs 10/13/23 Unknown Rx budesonide 3 mg 3 mg PO QAM #30 ea 11/05/23 Unknown Rx capsule,delayed,extended release lactulose 20 gram/30 mL oral 30 g (45 mL) PO TID #3,000 mL 11/05/23 Unknown Rx solution omeprazole 20 mg capsule,delayed 20 mg PO DAILY #30 caps 11/27/23 Unknown Rx release pen needle, diabetic 32 gauge x #200 ea 12/17/23 Unknown Rx 32 (BD Ultra-Fine Angeles Pen Needle) Trulicity 1.5 mg/0.5 mL 1.5 mg (0.5 mL) subcut QWEEK #2 mL 01/26/24 Unknown Rx subcutaneous pen injector (dulaglutide) Allergy/AdvReac Type Severity Reaction Status Date / Time No Known Allergies Allergy Verified 01/29/24 13:59 Family History Father Alcoholism Myocardial infarction Heart disease Hypertension Hyperlipidemia Mother Alcoholism Anxiety Depression Heart disease Daughter Asthma Depression ADHD Grandmother Arthritis Diabetes Blood clot in vein Hypertension CVA (cerebral vascular accident) Uncle Colon cancer Grandfather Myocardial infarction Heart disease Surgical History H/O dilation and curettage Hx of colonoscopy Hx of abdominal surgery History of hysterectomy Social History household members: spouse current occupational status: employed current occupation: [employer] Smoking Status: Former smoker quit date: 10/18/22 pack-years: 50 Electronic Cigarette Use: not used alcohol intake: former year quit: 2021 substance use type: former substance user Date of last use: 08/2021, marijuana and methamphetamine do you feel safe at home: Yes ROS ROS ED Review of Systems ROS Unobtainable: other Constitutional Constitutional ED: Reports lethargy; Denies chills, fever(s), sweats or weight loss Eyes Eyes: Denies blurry vision, change in vision or diplopia ENT ENT ED: Denies rhinorrhea or sore throat Cardiovascular Cardiovascular: Denies chest pain, orthopnea or racing heartbeat Respiratory/Chest Respiratory/Chest: Denies cough, dyspnea, dyspnea on exertion, orthopnea or sputum Gastrointestinal Gastrointestinal: Reports abdominal pain and nausea; Denies diarrhea or vomiting Genitourinary Genitourinary ED: Denies dysuria, hematuria or urinary frequency Musculoskeletal Musculoskeletal: Denies arthralgias, back pain, myalgias or neck pain Integumentary Denies abscess, Abrasions or rash Neurologic Neurologic: Denies headache(s) or weakness Psychiatric Psychiatric: Denies anxiety, depression or suicidal thoughts Endocrine Endocrinology: Denies polydipsia, polyphagia or polyuria Hematologic/Lymphatic Hematologic/Lymphatic: Denies easy bleeding, easy bruising or lymphadenopathy Allergic/Immunologic Allergic/Immunologic ED: Denies mouth swelling, tongue swelling or urticaria EXAM Physical Exam Const Vital Signs: 01/29/24 13:57 Temperature 96.6 F L Temperature Source Temporal Pulse Rate 99 Respiratory Rate 16 Blood Pressure 130/94 H Blood Pressure Mean 106 Pulse Ox 97 Oxygen Delivery Method Room Air Positive well nourished and well developed General Appearance ED: well developed and NAD HEENT Reports TM's clear and moist mucous membranes normocephalic and atraumatic; Negative for trauma or tenderness Tympanic Membrane ED: Yes TM's clear Eyes PERRL and EOMs intact bilaterally General Eye ED: Negative for pale conjunctiva or scleral icterus Neck no lymphadenopathy, supple and no JVD General: Negative for tenderness Chest Wall inspection of chest normal and palpation of chest normal Chest: Negative for tenderness Resp normal respiratory effort and clear to auscultation bilaterally Effort and Inspection: Negative for respiratory distress or pain with movement Auscultation: Negative for rhonchi, wheezes or diminished lung sounds Cardio regular rate, regular rhythm, S1 normal heart sound, S2 normal heart sound and no murmurs Peripheral Pulses: pulses 2+ throughout GI normal to inspection, nondistended, normoactive bowel sounds, soft to palpation, non-distended and no masses GI Narrative: Tenderness palpation of the right upper quadrant with some mild guarding. There is no rebound, rigidity, or pineal signs. No mass palpated. Positive Archer sign. Back/Spine no CVA tenderness and no thoracic nor lumbar tenderness Extremity normal to inspection General Extremety ED: Negative for edema General Extremity: Negative for edema Neuro oriented x3, CN's II-XII intact bilaterally, no sensory deficits noted and gait normal Sensorium / Orientation: awake, alert, oriented to person, oriented to place and oriented to time Motor Exam: strength 5/5 throughout and strength abnormal Psych mental status grossly normal Skin no rashes or lesions noted and no wounds MDM MDM MDM Narrative Medical decision making narrative: Patient presents with chronic ongoing abdominal pain right upper quadrant. Has been seen by surgery and GI in the past. She has known history of gallstones. History of reflux. She is also diabetic and history of constipation. IV line established. CBC with differential count 6.6 with hemoglobin 13 and platelet count of 307. Chemistries unremarkable. LFTs were normal. Lactate was elevated 3.6 however clinically I do not think she is infectious. She is on metformin which could potentially cause lactic acidosis. Urinalysis is normal. CT scan of the ab pelvis with IV contrast ordered and results are pending. Care of patient turned over to evening physician awaiting results and final disposition Lab Data Attestation: I reviewed the patient's lab results. Labs: Laboratory Results - last 24 hr 01/29/24 01/29/24 14:22 14:55 WBC 6.6 RBC 4.41 Hgb 13.3 Hct 40.1 MCV 90.9 MCH 30.2 MCHC 33.2 RDW Std Deviation 42.9 RDW Coeff of Zac 12.9 Plt Count 307 MPV 9.5 Immature Gran % (Auto) 0.300 Neut % (Auto) 65.6 Lymph % (Auto) 28.3 Redwood % (Auto) 4.9 Eos % (Auto) 0.6 Baso % (Auto) 0.3 Absolute Neuts (auto) 4.3 Absolute Lymphs (auto) 1.86 Nucleated RBC % 0 Sodium 137 Potassium 4.2 Chloride 104 Carbon Dioxide 24.0 Anion Gap 9 BUN 12 Creatinine 0.87 Estim Creat Clear Calc 63.07 Est GFR (MDRD) Af Amer 89 Est GFR (MDRD) Non-Af 74 BUN/Creatinine Ratio 13.7 Glucose 163 H Lactic Acid 3.6 H* Calcium 9.7 Total Bilirubin 0.50 AST 17 ALT 17 Alkaline Phosphatase 48 Total Protein 7.1 Albumin 3.7 Globulin 3.4 Albumin/Globulin Ratio 1.1 Urine Color Yellow Urine Clarity Clear Urine pH 5.0 Ur Specific Enterprise 1.020 Urine Protein 15 H Urine Glucose (UA) 50 H Urine Ketones 5 H Urine Occult Blood Negative Urine Nitrite Negative Urine Bilirubin Negative Urine Urobilinogen 1 H Ur Leukocyte Esterase 100 H Urine RBC 0 SEEN Urine WBC 0-5 SEEN Ur Squamous Epith Cells 0-5 SEEN Urine Bacteria 0 SEEN Urine Mucus 0 SEEN Discharge Plan Triage Chief Complaint: Abd Pain ED Provider: Antonina Dillard Dx/Rx/DC Orders Clinical Impression: Abdominal pain Prescriptions: No Action budesonide 3 mg capsule,delayed,extend.release 3 mg PO QAM Qty: 30 2RF lactulose 20 gram/30 mL solution 30 g PO TID Qty: 3000 2RF metformin 500 mg tablet 500 mg PO BID Trulicity 0.75 mg/0.5 mL pen injector 0.75 mg subcut QWEEK Qty: 2 3RF (DME) FreeStyle Norberto 2 Sensor Kit See Rx Instructions .Route Qty: 2 5RF Rx Instructions: 1 sensor q 14 days (DME) pen needle, diabetic [BD Ultra-Fine Angeles Pen Needle] 32 gauge x 5/32 needle See Rx Instructions .Route Qty: 200 5RF Rx Instructions: 4x/day sucralfate 1 gram tablet 1 g PO QACHS Qty: 56 0RF Rx Instructions: Take an hour before meals and at bedtime insulin aspart U-100 [Novolog FlexPen U-100 Insulin] 100 unit/mL (3 mL) Insulin Pen 2 unit SUBCUT TID insulin glargine [Lantus Solostar U-100 Insulin] 100 unit/mL (3 mL) Insulin Pen 12 unit SUBCUT QHS lactulose 10 gram/15 mL solution 15 g PO TID budesonide-formoterol [Symbicort] 80-4.5 mcg/actuation HFA aerosol inhaler 1 inh INHALATION DIRECTED Qty: 10.2 1RF Rx Instructions: One inhalation twice daily. albuterol sulfate 90 mcg/actuation HFA aerosol inhaler 1 inh INHALATION DIRECTED Qty: 8.5 1RF Rx Instructions: 2 puffs every 4 hours as needed for shortness of breath or wheezing. atorvastatin 10 mg tablet 10 mg PO QHS Qty: 90 1RF omeprazole 20 mg capsule,delayed release(DR/EC) 20 mg PO DAILY Qty: 30 3RF Trulicity 1.5 mg/0.5 mL pen injector 1.5 mg subcut QWEEK Qty: 2 4RF Primary Care Provider: Alanna Almonte Referrals: Alanna Almonte MD [Primary Care Provider] - Print Language: Arabic
[2024-01-29 14:55] LABS: Bacteria 0 SEEN /hpf (None Seen); Mucous, Urine 0 SEEN /hpf (<or=2+)
[2024-01-29 14:58] LABS: Color, Urine Yellow (Yellow); Glucose, Dipstick 50 mg/dl (Normal); Ketone-Dipstick 5 mg/dl (Negative); Leukocyte Esterase-Dipstick 100 /ul (Negative); Nitrite-Dipstick Negative (Negative); Occult Blood-Urine Negative /ul (Negative); Protein-Dipstick 15 mg/dl (Negative); Urine Bilirubin Dipstick Negative (Negative); Urine Clarity Clear (Clear); Urine Urobilinogen 1 mg/dl (Normal)
[2024-01-29 15:07] LABS: Absolute Lymphocyte Count 1.86 X10^3/uL (0.83-4.51); Absolute Neutrophil Count 4.3 X10^3/uL (2.0-7.7); Basophil# 0.02 X10^3/uL; Basophil% 0.3 % (0-1); Eosinophil# 0.04 X10^3/uL; Eosinophils% 0.6 % (0-5); Hematocrit 40.1 % (37-47); Hemoglobin 13.3 g/dL (12.0-15.0); Lymphocyte # 1.86 X10^3/ul (0.83-4.51); Lymphocyte % 28.3 % (19-41); Mean Corp Hgb Conc 33.2 g/dL (32-36); Mean Corpuscular Hgb 30.2 pg (27.0-32.0); Mean Corpuscular Volume 90.9 fL (81-99); Mean Platelet Vol. 9.5 fl (6.2-12.0); Monocyte# 0.32 X10^3/uL; Monocyte% 4.9 % (0-10); NRBC Flagged by Analyzer 0 % (0-5); Neutrophil # 4.31 X10^3/uL (2.7-7.7); Neutrophil % 65.6 % (47-70); Platelet Count 307 K/mm3 (150-450); RBC Distribution Width CV 12.9 % (11.6-14.6); RBC Distribution Width SD 42.9 fl (35.1-43.9); Red Blood Count 4.41 M/mm3 (4.2-5.4); White Blood Count 6.6 K/mm3 (4.4-11.0)
[2024-01-29 15:23] LABS: White Blood Cells 0-5 SEEN /hpf (0-5)
[2024-01-29 15:24] LABS: Red Blood Cells-Urine 0 SEEN /hpf (0-5); Squamous Epithelial Cells - UA 0-5 SEEN /hpf (5-10)
[2024-01-29 15:41] LABS: ALB/GLOB Ratio 1.1 RATIO (0.9-2.4); AST(SGOT) 17 U/L (15-37); Alanine Aminotransfer ALT/SGPT 17 U/L (13-56); Albumin, Serum 3.7 g/dL (3.2-5.0); Alkaline Phosphatase 48 U/L (45-117); Anion Gap 9 (5-15); BUN 12 mg/dL (7-18); BUN/Creat Ratio 13.7 RATIO (10-20); Calcium,Total 9.7 mg/dL (8.5-10.1); Chloride 104 mmol/L (98-107); Creatinine, Serum 0.87 mg/dL (0.55-1.02); EST Glomerular Filtration Rate 74 mL/min (>60); Est Glom Filt Rate - Afr Amer 89 mL/min (>60); Estimated Creatinine Clearance 63.07 ml/min; Globulin 3.4 g/dL (2.2-4.2); Glucose 163 mg/dL (74-106); Potassium 4.2 mmol/L (3.5-5.1); Protein, Total 7.1 g/dL (6.4-8.2); Sodium Level 137 mmol/L (136-145)
[2024-01-29 15:45] LABS: Lactic Acid 3.6 mmol/L (0.4-1.9)
--- NOTE | 2024-01-29 16:04 | CT_ITS ---
STUDY: CT ABDOMEN AND PELVIS WITH CONTRAST REASON FOR EXAM: Female, 48 years old. abdominal pain RADIATION DOSAGE (If Supplied By Facility): CTDIvol = ( 12.31 ) mGy, DLP = ( 598.90 ) mGycm TECHNIQUE: Transaxial images were obtained from the dome of the diaphragm to the symphysis pubis without oral contrast. IV 100mL Isovue-300 was administered. Sagittal and coronal images were reconstructed. Individualized dose optimization techniques were used for this CT. COMPARISON: None. FINDINGS: The visualized lung bases are unremarkable. The visualized portions of the heart are within normal limits. Normal liver. Layering stones or sludge in the gallbladder. Normal spleen. Normal pancreas. Normal bilateral adrenal glands. Normal right kidney. Normal left kidney. Normal visualized stomach. Normal small intestine. Normal colon. There is non-visualization of the appendix. Normal abdominal aorta. Normal inferior vena cava. Normal retroperitoneum. Normal urinary bladder. Normal abdominal wall. Bilateral pars defects of the L5 vertebra consistent with L5 spondylolysis. No anterolisthesis of L5 on S1 to suggest spondylolisthesis. CT/Abdomen/Pelvis W IV Cont ONLY IMPRESSION: 1. No acute abnormality. 2. Suspect cholelithiasis. Electronically Signed: Vince Mathews MD at 16:42 EDT ,
[2024-01-29] MEDS: 0.9% Normal Saline (1000mL) 1,000 ML 1000 ML IV (17:55)
[2024-01-29 17:56] VITALS: BP 138/74; PULSE 64; RESP 15; TEMP 36.4; O2SAT 97
[2024-01-29 19:02] LABS: Reflex Lactate? Y
[2024-01-29 20:17] VITALS: BP 99/67; PULSE 98; RESP 16; O2SAT 98
[2024-01-29] MEDS: 0.9% Normal Saline (1000mL) 1,000 ML 125 ML IV (20:27)
[2024-01-29 20:48] LABS: Lactic Acid 2.6 mmol/L (0.4-1.9)
== END 2024-01-29 21:44 | disposition home or self-care (01) ==
PROVIDERS: Emergency Provider Emergency Medicine; PCP Internal Medicine; Visit Provider Emergency Medicine
DX: R10.9 Unspecified abdominal pain (principal); E11.9 Type 2 diabetes mellitus without complications; Z87.891 Personal history of nicotine dependence
CPT/HCPCS: 74177; 80053; 81001; 83605; 85025; 96360; 96361; 99283; J7030; Q9967; A4216

== ENCOUNTER → 2024-03-25 | Outpatient (CLI) | payer MEDICAID, SELFPAY ==
--- NOTE | 2024-03-25 09:51 | NM_ITS ---
CLINICAL: 48-year-old female with history of abdominal pain and apparent documented cholelithiasis. RADIONUCLIDE HEPATOBILIARY SCINTIGRAPHY COMPARISON: CT of the abdomen-pelvis report 01/29/2024, abdominal ultrasound report 08/06/2023 FINDINGS: Following the intravenous administration of 5.4 mCi of 99m Tc Mebrofenin, hepatobiliary images reveal: 1. Relatively prompt and homogeneous radiopharmaceutical concentration is noted by a normal sized liver. No parenchymal defects are identified. 2. Gallbladder activity is identified by 60 minutes post radiopharmaceutical administration. 3. Small intestinal tract is observed at 10 minutes following tracer injection. 4. Washout of the radiopharmaceutical by the hepatic parenchyma appears qualitatively normal. Cholecystokinin (0.02 ug/kg) was administered intravenously over a 30-minute period. The post CCK gallbladder ejection fraction calculated at 19 minutes following Cholecystokinin administration was noted to be < 5 % (normal greater than 35%). UT/Hepatobilliary Img w/Pharm Int IMPRESSION: 1. ABNORMAL 99m Tc Mebrofenin hepatobiliary imaging examination with Cholecystokinin. A. A gallbladder ejection fraction calculated to be less than 35% following the administration of Cholecystokinin is consistent with the presence of functional hepatobiliary disease (gallbladder and/or sphincter of Oddi dyskinesia) and/or organic hepatobiliary disease (chronic acalculous cholecystitis and/or cystic duct syndrome) in patients with intermediate to high pretest probabilities of hepatobiliary illness. (Chavo Cain et al, Journal of Nuclear Medicine 32:1695, 1991). Electronically Signed: Vince Vega DO at 11:02 EDT ,
== END | disposition home or self-care (01) ==
PROVIDERS: PCP Internal Medicine; Referring Provider Surgery; Visit Provider Surgery
DX: K80.20 Calculus of gallbladder without cholecystitis without obstruction (principal)
CPT/HCPCS: 78227; A9537; J2805

== ENCOUNTER 2024-04-28 07:38 | Day surgery (SDC) | payer MEDICAID, SELFPAY ==
--- NOTE | 2024-04-14 14:01 | EKG12_ITS ---
Test Reason : PRE OP Blood Pressure : / mmHG Vent. Rate : 075 BPM Atrial Rate : 075 BPM P-R Int : 124 ms QRS Dur : 074 ms QT Int : 362 ms P-R-T Axes : 064 065 104 degrees QTc Int : 404 ms Normal sinus rhythm Nonspecific T wave abnormality Abnormal ECG Confirmed by Galo Cervantes ([id number]), research editor RUBENS FITZPATRICK ([id number]) on 04/15/2024 6:03:09 AM Referred By: Myriam Harris Confirmed By:Galo Cervantes
[2024-04-28] VITALS (9 sets, daily range): BP systolic 95–131; BP diastolic 57–90; PULSE 67–88; RESP 16; TEMP 36.1–37; O2SAT 95–100; BMI 26.9
--- NOTE | 2024-04-28 | GALL_PTH ---
PATIENT: FIORDALIZA OLSEN LOC: [facility] – [place] U#:[id number] AGE/SX: 48/F ROOM: RE04/28/[address]: Dr. Myriam Harris MD : 1975 BED: DIS: 04/28/2024 SPEC #: [id number] RECD: 04/28/24 13:12 STATUS: JUANA REQ #: [id number] SUKH: 04/28/24 00:[address]: Myriam Harris DEPT: SURGICAL PATHOLOGY RECD BY: Ricki Lopes ENTERED: 04/28/24 13:13 SP TYPE: RAYNA HAYWARD DR: Dr. Alanna Almonte MD Tissues: Gallbladder, NOS Procedures: Surgery Specimen Level III HEADER OPERATION: Laparoscopic, cholecystectomy with IOC PRE-OP DIAGNOSIS: Cholelithiasis TISSUE SUBMITTED: Gallbladder MICROSCOPIC DIAGNOSIS Gallbladder, cholecystectomy: Chronic cholecystitis and cholelithiasis. AM. 04/29/2024 MICROSCOPIC DESCRIPTION Slides are reviewed. GROSS DESCRIPTION Received is one container labeled with the patient's name and designated gallbladder. The specimen consists of a gallbladder measuring 7.5 cm in length and up to 4.0 cm in diameter. The external surface is pink-maya, smooth and glistening for the most part. Focally it is granular, hemorrhagic and contains cautery artifact. The gallbladder contains green-yellow mucoid bile and multiple irregular black stones measuring in aggregate 4.0 x 3.0 x 0.7 cm and 0.1 to 0.3 cm in greatest dimension. The mucosa is bile-stained and without any mass lesions. The gallbladder wall measures up to 0.1 cm in thickness. 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 / SJ:mr 04/28/2024 :3 CPT: 99435
--- NOTE | 2024-04-28 07:48 | PCM.PRE.AN2 ---
ASA Classification* ASA Classification ASA Classification: 2 Assessment & Plan Anesthesia* Anesthesia Assessment Anesthesia Assessment: Discussed sedation and/or anesthesia options, risks, benefits, and alternatives with patient/parents/legal guardian/POA. Questions invited. The patient/parents/legal guardian/POA seems to understand and agrees to proceed with anesthesia plan. Reviewed the physical assessment, medical history, allergy history and patient home medications list prior to surgery/procedure/anesthetic and documented any changes. Performed airway and anesthesia risk assessments. Anesthesia Type Anesthesia Type: General Anesthesia Focused Assessment* Airway Assessment Mouth opens: >3 cm Mallampati Score: II Focused Labs Anesthesia Preop lab: CBC WBC 6.6 K/mm3 (4.4-11.0) 01/29/24 14:55 RBC 4.41 M/mm3 (4.2-5.4) 01/29/24 14:55 Hgb 13.3 g/dL (12.0-15.0) 01/29/24 14:55 Hct 40.1 % (37-47) 01/29/24 14:55 Plt Count 307 K/mm3 (150-450) 01/29/24 14:55 CHEMISTRY Potassium 4.2 mmol/L (3.5-5.1) 01/29/24 14:55 Sodium 137 mmol/L (136-145) 01/29/24 14:55 BUN 12 mg/dL (7-18) 01/29/24 14:55 Creatinine 0.87 mg/dL (0.55-1.02) 01/29/24 14:55 Glucose 163 mg/dL (74-106) H 01/29/24 14:55 POC Glucose 133 mg/dL (74-106) H 05/28/23 05:54 TSH 2.78 uIU/mL (0.358-3.74) 08/06/23 09:19 COAG Pre-Assessment Diagnosis/Proposed Procedure Planned Operative Procedure(s): LAPAROSCOPIC CHOLECYSECTOMY WITH CHOLANGIOGRAMS Anesthesia History 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 When Was Last Pacemaker Check QUESTION #4 FULL TEXT: You/Your Family Experience fever (hyperthermia) with Anesthesia Last Oral Intake Last Oral intake: Last Oral Intake NPO since Meds taken in AM with sips of water? Meds patient instructed to take am of surgery PONV PONV - wagon drill operator: PONV - wagon drill operator Female Yes 04/14/24 08:17 HX of Motion Sickness No 04/14/24 08:17 HX of N/V After Surgery No 04/14/24 08:17 Non-Smoker Yes 04/14/24 08:17 Duration of Surgery greater Yes 04/14/24 08:17 than 60 minutes Number of Risk Factors 3 04/14/24 08:17 PONV Score Moderate Risk 04/14/24 08:17 Height & Weight Height & Weight: Anesthesia: Height & Weight Height 4 ft 11 in 04/07/24 14:15 Respiratory Assessment Respiratory Assessment - wagon drill operator: Respiratory Tract Infection Hx - wagon drill operator Hx Respiratory Tract Infection No 04/14/24 08:17 STOP Sleep Apnea STOP Sleep Apnea - wagon drill operator: STOP Sleep Apnea - wagon drill operator Hx Hypertension No 04/14/24 08:17 Hx Sleep Apnea No 04/14/24 08:17 CPAP BIPAP Do you snore loudly (louder No 04/14/24 08:17 than talking or can be heard Do you often feel tired/ No 04/14/24 08:17 fatigued/ sleepy during daytime? Has anyone observed you stop No 04/14/24 08:17 breathing during sleep? STOP Results Negative 04/14/24 08:17 QUESTION #5 FULL TEXT : Do you snore loudly (louder than talking or can be heard through closed doors)? Tobacco Use History Tobacco Use History - wagon drill operator: Tobacco Use History - wagon drill operator Tobacco Use Smoking Status Former smoker 04/14/24 08:17 Hx Tobacco Use Yes 04/14/24 08:17 Years Smoking Packs Smoked per Day Smoking Cessation Date was Yes - quit smoking within 15 04/14/24 08:17 within the last 15 years years Hx Smoking Cessation Date 11/17/22 04/14/24 08:17 Hx Smoking Cessation No 04/14/24 08:17 Counseling Hematologic Medial History Hematologic Hx - wagon drill operator: Hematologic Medical Hx - therapeutic consultant Hx of Blood Transfusion No 04/14/24 08:17 Hx of Transfusion in last 3 No 04/14/24 08:17 Months Date of Last Transfusion (if within last 3 months) Ever experience any problems No 04/14/24 08:17 with transfusion(s)? Specify any problems Hx of Preganancy in last 3 No 04/14/24 08:17 Months Nurse Filling Out Transfusion [email or web address] 04/14/24 08:17 & Questions: Date: 04/14/24 04/14/24 08:17 Time: 04/14/24 08:17 Patient unable to answer at this time (ie. confused, unrespo /Reproduction History /Reproductive History - wagon drill operator: /Reproductive Hx- wagon drill operator Hx Now Gestational Age (in weeks): EDC: Hx Hx Para Hx Section SAB No 01/29/24 13:57 Active Medications Active Medications: Current Medications Generic Name Dose Route Start Last Admin Trade Name Freq PRN Reason Stop Dose Admin Cefazolin Sodium 2 gm/ N/A 20 mls @ 400 mls/hr 04/28/24 09:20 IV 04/28/24 09:22 PREOP ONE Lactated Ringer's 1,000 mls @ 15 mls/hr 04/28/24 08:00 IV 05/01/24 02:39 .Q48H [facility] Protocol PFSH Medical History Alcohol use Hyperlipidemia Loss of hearing Wears glasses Wears dentures PTSD (post-traumatic stress disorder) Depression Anxiety Substance abuse Marijuana use Insulin dependent diabetes mellitus Migraine headache Dietary restriction History of IBS Gastric reflux Former smoker Asthma Leg cramps Home Medications ?Medication ?Instructions ?Recorded ?Last Taken ?Type albuterol sulfate 90 mcg/actuation 1 inh inhalation DIRECTED #8.5 07/08/23 Unknown Rx aerosol inhaler grams atorvastatin 10 mg tablet 10 mg PO QHS #90 tabs 09/28/23 Unknown Rx lactulose 20 gram/30 mL oral 30 g (45 mL) PO TID #3,000 mL 11/05/23 Unknown Rx solution pen needle, diabetic 32 gauge x #200 ea 12/17/23 Unknown Rx /32 (BD Ultra-Fine Angeles Pen Needle) blood sugar diagnostic (True #100 ea 02/17/24 Unknown Rx Metrix Glucose Test Strip) flash glucose sensor (FreeStyle #2 ea 02/17/24 Unknown Rx Norberto 2 Sensor kit) sucralfate 1 gram tablet 1 g PO QACHS #56 tabs 03/04/24 Unknown Rx budesonide-formoterol HFA 80 1 inh inhalation Q12H PRN SOB 04/14/24 Unknown History mcg-4.5 mcg/actuation aerosol inhaler (Symbicort) insulin aspart U-100 100 unit/mL 6 unit subcut TID 04/14/24 Unknown History (3 mL) subcutaneous pen (Novolog FlexPen U-100 Insulin aspart) insulin glargine 100 unit/mL (3 8 unit subcut QHS 04/14/24 Unknown History mL) subcutaneous pen (Lantus Solostar U-100 Insulin) omeprazole 40 mg capsule,delayed 40 mg PO DAILY 04/14/24 Unknown History release Allergy/AdvReac Type Severity Reaction Status Date / Time No Known Allergies Allergy Verified 04/14/24 08:14 Family History Father Alcoholism Myocardial infarction Heart disease Hypertension Hyperlipidemia Mother Alcoholism Anxiety Depression Heart disease Daughter Asthma Depression ADHD Grandmother Arthritis Diabetes Blood clot in vein Hypertension CVA (cerebral vascular accident) Uncle Colon cancer Grandfather Myocardial infarction Heart disease Surgical History H/O dilation and curettage Hx of colonoscopy Hx of abdominal surgery History of hysterectomy Social History household members: spouse current occupational status: employed current occupation: [employer] Smoking Status: Former smoker quit date: 10/18/22 pack-years: 50 Electronic Cigarette Use: not used alcohol intake: former year quit: 2021 substance use type: former substance user Date of last use: 08/2021, marijuana and methamphetamine do you feel safe at home: Yes Review of Systems (Anesthesia) ROS Narrative System reviewed and no additional complaints, except as documented.
[2024-04-28] MEDS: Lactated Ringers 1,000 ML 15 ML IV (08:00)
--- NOTE | 2024-04-28 08:34 | PCM.HP.BLA ---
History and Physical Date of Admission: 04/28/24 Date of Service: 04/07/24 MR#: [id number] Acct: [id number] Name: FIORDALIZA OLSEN Rep #: [id number] : 1975 Provider: Dr. Myriam Harris MD Age/Sex: 48/F Location: [facility] Status: Signed Intake Vital Signs 03/28/2413:35 04/07/2411:46 04/07/2414:15 Height 4 ft 11 in 4 ft 11 in 4 ft 11 in Weight: 138 lb 133 lb 4 oz 143 lb BMI 27.8 26.9 28.8 BP 108/74 132/83 H 137/97 H Blood Pressure Location Lt brachial Lt brachial Lt brachial Position Sitting Sitting Sitting Respiration 16 18 Pulse 68 84 96 Pulse Source Monitor Monitor Monitor Temp 97.5 F L Temp Source Temporal Pulse Oximetry (%) 95 97 97 Oxygen Delivery Method room air room air room air Intake Visit Reasons: HIDA SCAN RESULTS Chief Complaint: HIDA SCAN RESULTS Is patient in pain?: No Allergies No Known Allergies Allergy (Verified 04/07/24 14:16) Medications ?Medication ?Instructions ?Recorded ?Confirmed ?Type albuterol sulfate 90 mcg/actuation 1 inh inhalation DIRECTED #8.5 07/08/23 04/07/24 Rx aerosol inhaler grams budesonide-formoterol HFA 80 1 inh inhalation DIRECTED SOB 07/08/23 04/07/24 Rx mcg-4.5 mcg/actuation aerosol #10.2 grams inhaler (Symbicort) atorvastatin 10 mg tablet 10 mg PO QHS #90 tabs 09/28/23 04/07/24 Rx lactulose 20 gram/30 mL oral 30 g (45 mL) PO TID #3,000 mL 11/05/23 04/07/24 Rx solution omeprazole 20 mg capsule,delayed 20 mg PO DAILY #30 caps 11/27/23 04/07/24 Rx release pen needle, diabetic 32 gauge x #200 ea 12/17/23 04/07/24 Rx 5/32 (BD Ultra-Fine Angeles Pen Needle) blood sugar diagnostic (True #100 ea 02/17/24 04/07/24 Rx Metrix Glucose Test Strip) flash glucose sensor (FreeStyle #2 ea 02/17/24 04/07/24 Rx Norberto 2 Sensor kit) insulin aspart U-100 100 unit/mL 10 unit (0.1 mL) subcut TID #27 mL 02/17/24 04/07/24 Rx (3 mL) subcutaneous pen (Novolog FlexPen U-100 Insulin aspart) insulin glargine 100 unit/mL (3 12 unit (0.12 mL) subcut QHS #10.8 02/17/24 04/07/24 Rx mL) subcutaneous pen (Lantus mL Solostar U-100 Insulin) sucralfate 1 gram tablet 1 g PO QACHS #56 tabs 03/04/24 04/07/24 Rx PFSH Medical History Hyperlipidemia Loss of hearing Wears glasses Wears dentures PTSD (post-traumatic stress disorder) Depression Anxiety Substance abuse Marijuana use Insulin dependent diabetes mellitus Migraine headache Dietary restriction History of IBS Gastric reflux Former smoker Asthma Leg cramps Surgical History H/O dilation and curettage Hx of colonoscopy Hx of abdominal surgery History of hysterectomy Family History Father Alcoholism Myocardial infarction Heart disease Hypertension HyperlipidemiaMother Alcoholism Anxiety Depression Heart diseaseDaughter Asthma Depression ADHDGrandmother Arthritis Diabetes Blood clot in vein Hypertension CVA (cerebral vascular accident)Uncle Colon cancerGrandfather Myocardial infarction Heart disease Social History household members: spouse current occupational status: employed current occupation: [employer] - [employer] Smoking Status: Former smoker quit date: 10/18/22 pack-years: 50 Electronic Cigarette Use: not used alcohol intake: former year quit: 2021 substance use type: former substance user Date of last use: 08/2021, marijuana and methamphetamine do you feel safe at home: Yes HPI HPI HPI: 48-year-old female presents to discuss HIDA scan results. Patient did have some cholelithiasis seen on ultrasound however her symptoms seem to present little more like GI in etiology. Patient has been on omeprazole and initially she stated her bloating and epigastric discomfort did resolve. HIDA scan did show ejection fraction less than 5% patient also states that she had her bloating sensation with the CCK as well with the right upper quadrant discomfort. 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 ROS General General: Yes weight change; No appetite, fatigue, colon cancer or breast cancer HEENT HEENT: No difficulty swallowing, eye injury, eye surgery, swollen glands or hoarseness Endo Endocrine: Yes diabetes mellitus; No thyroid disease, thyroid cancer, Hair loss, heat intolerance or cold intolerance Skin Skin: No rash or changing moles Musc Musculoskeletal: Yes back problems Cardio Cardiovascular: No murmur, pacemaker, heart disease, atrial fibrillation, high blood pressure, heart attack, heart stent, palpitations, shortness of breat with exertion or chest pain Psych Psychiatric: Yes depression Resp Respiratory: No shortness of breath, No sleep apnea, No cough, No COPD, Yes asthma, No emphysema and No wheezing Gastro Gastrointestinal: Yes abdominal pain, No nausea or vomiting, No diarrhea, No constipation, No blood in stool, Yes acid reflux, No hemorrhoids, No ulcers, Yes gallbladder problem and No black,tarry stools Danny Hematologic: No blood thinners, No blood disorders, No bleeding, No anemia and No blood clots Neuro Neurologic: No numbness and No tingling Exam Const General: cooperative, healthy appearing, comfortable and no acute distress [facility] Head: normocephalic and atraumatic Neck Neck: supple Resp Effort & Inspection: normal respiratory effort Cardio Rate: regular rate GI Inspection: non-distended Palpation: soft, no hernias and tender in the RUQ (Mild, no peritoneal signs); with no rebound tenderness Skin General: no rashes or lesions noted Neuro General: CN's II-XI intact bilaterally Extrem General: normal to inspection Psych Mental Status: mental status grossly normal Attitude: cooperative Assessment and Plan Assessment and Plan (1) Cholelithiasis: Status: Acute Qualifiers: Cholelithiasis location: gallbladder Cholecystitis presence: without cholecystitis Biliary obstruction: without biliary obstruction Qualified Code(s): K80.20 - Calculus of gallbladder without cholecystitis without obstruction (2) Gastric reflux: Status: Acute Comment: GASTRITIS/ON omeprazole Plan Discussed with patient would recommend continue on the omeprazole I cannot guarantee that removing her gallbladder resolve all of her signs and symptoms but I do think that it may help with some of them. Reviewed the anatomy with the patient and discussed the procedure: laparoscopic cholecystectomy with possible cholangiograms, possible open. Review risks including but not limited to bleeding, infection, hernia, bile leak, retained gallstones requiring another procedure ERCP- Endoscopic Retrograde Cholangiopancreatography, injury to another organ (bile ducts, common bile duct, small bowel, etc.) and conversion to an open procedure. All questions were answered. Myriam Harris M.D. Pager: [phone] [facility] [address] [place] [address] [place] [address] Office: [phone] Coding Level of Care Code Off vis,est,level 3 Diagnoses Calculus of gallbladder without cholecystitis without obstruction K80.20 Cholelithiasis location: gallbladder Cholecystitis presence: without cholecystitis Biliary obstruction: without biliary obstruction Gastric reflux K21.9 04/07/24 1529 <Electronically signed by Myriam Harris MD> Date Myriam Harris MD
[2024-04-28 08:43] LABS: Bedside Glucose 199 mg/dL (74-106)
[2024-04-28] MEDS: Cefazolin 2 GM in Syringe IV (09:18)
--- NOTE | 2024-04-28 09:40 | RAD_ITS ---
STUDY: INTRAOPERATIVE CHOLANGIOGRAM. REASON FOR EXAM: Female, 48 years old. Laparoscopic cholecystectomy. FLUOROSCOPY TIME (if supplied): ( 4.7 seconds ) minutes/seconds. 1.57 mGy. TECHNIQUE: An intraoperative cholangiogram was performed by the surgeon. Imaging was submitted. COMPARISON: None. FINDINGS: The visualized intrahepatic biliary ducts are unremarkable. The common bile duct is not dilated. There is free flow contrast into the duodenum. RAD/Cholangiogram/ O R,Initial IMPRESSION: Unremarkable intraoperative cholangiogram. Electronically Signed: Kota Mayes MD at 12:59 EDT ,
[2024-04-28] MEDS: Bupivacaine Mpf 0.5% 30 ML VIAL (10:20)
--- NOTE | 2024-04-28 10:36 | PCM.OPRPT ---
Report of Operation Date of Procedure: 04/28/24 Pre-Operative Diagnosis: Cholelithiasis, abdominal pain Post-Operative Diagnosis: Same Surgery/Procedure Performed:: Laparoscopic cholecystectomy with cholangiograms Surgeon: Myriam Harris vendor manager: Maria Del Rosario Singer Type of Anesthesia: General/Supplemental Anesthesiologist: Jayden Aragon Special Medications: Ancef 2 g IV x 1 Specimen's removed: Gallbladder Estimated Blood Loss (mL): < 10 cc Description of Procedure: Indications: this is a 48 year-old female who developed abdominal pain/nausea/bloating and on workup was found to have cholelithiasis, with a normal common bile duct. Laparoscopic cholecystectomy was elected. Description procedure: The patient was placed on operating table in supine position. A timeout was completed verifying correct patient, procedure, site, position and special equipment prior to beginning procedure. General Anesthesia was induced. The abdomen was prepped and draped in usual sterile fashion. An incision was made in the natural skin line above the umbilicus. The fascia was elevated and incised. The peritoneum was elevated and incised. Entry into the peritoneum was confirmed visually and no bowel was noted in the vicinity of the incision. Olson trocar was placed. The abdomen was insufflated with carbon dioxide to a pressure of 12-15 mmHg. Patient tolerated insufflation well. The laparoscope was then inserted and abdomen inspected. No injuries from initial trocar placement were noted. Additional trochars were then inserted in the following locations 5 mm trocar in the epigastrium and 2 more 5 mm trochars along the right costal margin. The abdomen was inspected no abnormalities were found. The table is placed in reverse Trendelenburg position with the right side up. The dome of the gallbladder was grasped with atraumatic grasper passed through the lateral port and retracted over the dome of the liver?[employer] assisted in retraction of the gallbladder. Infundibulum was then grasped with atraumatic grasper through the midclavicular port and retracted to the right lower quadrant. This maneuver exposed Calot's triangle. The peritoneum overlying the gallbladder infundibulum was then incised and cystic duct and artery identified and circumferentially dissected. Ndiaye catheter was used for cholangiograms. The cholangiogram showed good filling of the common bile duct into the duodenum with no filling defects, good filling of the right and left bile ducts as well. The cystic duct and artery were then doubly clipped and divided close to the gallbladder. The gallbladder then dissected from its peritoneal attachments by electrocautery. Hemostasis was checked and the gallbladder and contained stones were removed using the endoscopic retrieval bag through the umbilical port. The gallbladder is passed off table as specimen. The gallbladder fossa was irrigated with saline and hemostasis obtained. There is no evidence of bleeding from the gallbladder fossa or cystic artery leakage of bile from the cystic duct stump. Secondary trochars removed under direct vision. No bleeding was noted the trocar sites. The laparoscope was withdrawn and umbilical trocar removed. The abdomen was allowed to collapse. The fascia of the 12 mm trocar was closed with a [id number] 0 Vicryl suture. The skin was closed with sutures of 4-0 Monocryl and Steri-Strips. [employer] assisted in closure. the patient was extubated. The patient tolerated procedure well and was taken to the postanesthesia care unit in stable condition. Complications none
--- NOTE | 2024-04-28 10:38 | EX.PCM.DISCH ---
Discharge Instructions Diet Discharge Diet: Light diet - advance as tolerated Activity Discharge Activity: May Not Drive (while taking narcotic pain medications.) May shower in (days): 1 Lifting Restrictions: no lifting >20 lbs x 2 wks, no strenuous exercise for 4 wks Dressing / Incision Call your doctor if your incision/area has: Continuous Slow Oozing, Sudden Increased Bleeding, Increased Pain/ Swelling, Increased Redness, Foul Smelling Discharge and Swelling at the incision site Call your doctor if you observe: Fever of 101 or Higher Remove Dressing in: 2 days Cleanse incision/area with: Soap & Water Additional Dressing/Incision Instructions:: Steri-Strips will fall off in 7 to 10 days, if they do not fall off okay to remove after 10 days. Follow Up Care Please Follow Up With: Myriam Harris MD When: Call the office for a follow-up appointment 2 weeks; after 5 PM and on the weekends call [phone] with any concerns. Test Results: Test results from this visit will be discussed in further detail at your follow-up appointment, if applicable. Discharge Plan Admission Attending Provider: Myriam Harris Primary Care Provider: Alanna Almonte Instructions Print Language: Croatian Discharge Orders/Prescriptions Prescriptions: New oxycodone 5 mg capsule 5 mg PO Q6H PRN (Reason: pain) 3 Days Qty: 10 0RF Continued lactulose 20 gram/30 mL solution 30 g PO TID Qty: 3000 2RF (DME) pen needle, diabetic [BD Ultra-Fine Angeles Pen Needle] 32 gauge x 5/32 needle See Rx Instructions .Route Qty: 200 5RF Rx Instructions: 4x/day sucralfate 1 gram tablet 1 g PO QACHS Qty: 56 0RF Rx Instructions: Take an hour before meals and at bedtime omeprazole 40 mg capsule,delayed release(DR/EC) 40 mg PO DAILY insulin aspart U-100 [Novolog FlexPen U-100 Insulin] 100 unit/mL (3 mL) insulin pen 6 unit SUBCUT TID budesonide-formoterol [Symbicort] 80-4.5 mcg/actuation HFA aerosol inhaler 1 inh INHALATION Q12H PRN (Reason: SOB) Rx Instructions: One inhalation twice daily. insulin glargine [Lantus Solostar U-100 Insulin] 100 unit/mL (3 mL) insulin pen 8 unit SUBCUT QHS albuterol sulfate 90 mcg/actuation HFA aerosol inhaler 1 inh INHALATION DIRECTED Qty: 8.5 1RF Rx Instructions: 2 puffs every 4 hours as needed for shortness of breath or wheezing. atorvastatin 10 mg tablet 10 mg PO QHS Qty: 90 1RF (DME) True Metrix Glucose Test Strip Strip See Rx Instructions .Route Qty: 100 5RF Rx Instructions: TID (DME) FreeStyle Norberto 2 Sensor Kit See Rx Instructions .Route Qty: 2 5RF Rx Instructions: 1 sensor q 14 days Other Ambulatory Orders: 12 Lead EKG (Routine) Timeframe: [id number] Location: None Selected Ordered By: Dr. Nav Mendez Referrals / Follow Up: Alanna Almonte MD [Primary Care Provider] - Disposition Disposition (needs filled in before D/C Order can be placed): Home, Self Care
--- NOTE | 2024-04-28 11:00 | PCM.POST.ANE ---
Anesthesia: Postop Eval I Current Vital Signs Temperature: 97.4 F Pulse Rate: 81 Blood Pressure: 105/59 Respiratory Rate: 16 Pulse Ox: 99 Oxygen Delivery Method: Room Air Assessment Airway patent: Yes Spontaneous unlabored respirations: Yes Mental status: Awake and Calm nausea: No Vomiting: No Anesthesia Complication: No Fluid Hydration Crystalloid volume administer (ml): 900 Total IV fluid infused: 900 Progress Note Anesthesia document: Postop Eval 1 completed: Yes
[2024-04-28 13:34] LABS: Bedside Glucose 267 mg/dL (74-106)
[2024-04-28] MEDS: 0.9% Normal Saline (1000mL) 1,000 ML 15 ML IV (13:45)
== END 2024-04-28 16:10 | disposition home or self-care (01) ==
LOC: SDC 07:41 → AC 07:42
PROVIDERS: PCP Internal Medicine; Referring Provider Surgery; Visit Provider Surgery
PROC: (CPT 47610; principal; 2024-04-28 09:05)
DX: K80.10 Calculus of gallbladder with chronic cholecystitis without obstruction (principal); Z79.4 Long term (current) use of insulin; E11.9 Type 2 diabetes mellitus without complications; K21.9 Gastro-esophageal reflux disease without esophagitis; J45.909 Unspecified asthma, uncomplicated; E78.5 Hyperlipidemia, unspecified; Z79.51 Long term (current) use of inhaled steroids; Z79.899 Other long term (current) drug therapy; Z87.891 Personal history of nicotine dependence
CPT/HCPCS: 47563; 00790; 74300; 76000; 82962; 88304; 93005; J7030; J7120; A4216; J2405

== ENCOUNTER 2024-07-13 18:25 | Emergency (ER) | payer MEDICAID, SELFPAY ==
[2024-07-13 18:25] VITALS: BP 137/72; PULSE 83; RESP 17; TEMP 36.2; O2SAT 99; BMI 28.5
--- NOTE | 2024-07-13 18:48 | EDS_ITS ---
HPI HPI - URI History of Present Illness Chief Complaint: Cold Sx Informant: patient Onset/Context/Timing Context: Gradual Onset Timing: Continuous Current Severity: Mild Maximum Severity: Mild Associated Symptoms Associated Symptoms: Positive for Nasal Congestion, Myalgias and Productive Cough Narrative Narrative: 48-year-old female history of diabetes. Complaining of cough and sore throat last 4 days. No vomiting no diarrhea. No dysuria. Cough at times productive of green sputum. No shortness of breath. No chest pain. No abdominal pain. Prior similar symptoms: Yes Recent Illness/Hospitalization: No ROS ROS ED ROS Narrative Cough. Body aches. Sore throat. Constitutional Constitutional ED: Denies chills or fever(s) Eyes Eyes: Denies blurry vision ENT ENT ED: Reports rhinorrhea and sore throat; Denies ear pain Cardiovascular Cardiovascular: Denies chest pain Respiratory/Chest Respiratory/Chest: Reports cough; Denies dyspnea or dyspnea on exertion Gastrointestinal Gastrointestinal: Denies abdominal pain Genitourinary Genitourinary ED: Denies dysuria or hematuria Musculoskeletal Musculoskeletal: Denies arthralgias Integumentary Denies abscess Neurologic Neurologic: Denies headache(s) Psychiatric Psychiatric: Denies anxiety Endocrine Endocrinology: Denies cold intolerance Hematologic/Lymphatic Hematologic/Lymphatic: Denies easy bleeding or easy bruising Allergic/Immunologic Allergic/Immunologic ED: Denies mouth swelling PFSH PFSH Medical History Alcohol use Hyperlipidemia Loss of hearing Wears glasses Wears dentures PTSD (post-traumatic stress disorder) Depression Anxiety Substance abuse Marijuana use Insulin dependent diabetes mellitus Migraine headache Dietary restriction History of IBS Gastric reflux Former smoker Asthma Leg cramps Home Medications ?Medication ?Instructions ?Recorded ?Last Taken ?Type albuterol sulfate 90 mcg/actuation 1 inh inhalation DIRECTED #8.5 07/08/23 Unknown Rx aerosol inhaler grams atorvastatin 10 mg tablet 10 mg PO QHS #90 tabs 09/28/23 Unknown Rx lactulose 20 gram/30 mL oral 30 g (45 mL) PO TID #3,000 mL 11/05/23 Unknown Rx solution pen needle, diabetic 32 gauge x #200 ea 12/17/23 Unknown Rx 5/32 (BD Ultra-Fine Angeles Pen Needle) blood sugar diagnostic (True #100 ea 02/17/24 Unknown Rx Metrix Glucose Test Strip) flash glucose sensor ([employer] #2 ea 02/17/24 Unknown Rx Norberto 2 Sensor kit) budesonide-formoterol HFA 80 1 inh inhalation Q12H PRN SOB 04/14/24 Unknown History mcg-4.5 mcg/actuation aerosol inhaler (Symbicort) insulin aspart U-100 100 unit/mL 50 unit (0.5 mL) subcut DAILY #50 05/06/24 Unknown Rx subcutaneous solution (Novolog mL U-100 Insulin aspart) lancets (Accu-Chek Softclix #100 ea 05/06/24 Unknown Rx Lancets) omeprazole 40 mg capsule,delayed 40 mg PO DAILY #90 caps 05/12/24 Unknown Rx release blood sugar diagnostic (Accu-Chek #100 ea 06/27/24 Unknown Rx Guide test strips) blood sugar diagnostic (Accu-Chek #100 ea 06/27/24 Unknown Rx Guide test strips) Allergy/AdvReac Type Severity Reaction Status Date / Time No Known Allergies Allergy Verified 07/13/24 18:25 Family History Father Alcoholism Myocardial infarction Heart disease Hypertension Hyperlipidemia Mother Alcoholism Anxiety Depression Heart disease Daughter Asthma Depression ADHD Grandmother Arthritis Diabetes Blood clot in vein Hypertension CVA (cerebral vascular accident) Uncle Colon cancer Grandfather Myocardial infarction Heart disease Surgical History S/P cholecystectomy H/O dilation and curettage Hx of colonoscopy Hx of abdominal surgery History of hysterectomy Social History household members: spouse current occupational status: employed current occupation: [employer] - early [employer] Smoking Status: Former smoker quit date: 10/18/22 pack-years: 50 Electronic Cigarette Use: not used alcohol intake: former year quit: 2021 substance use type: former substance user Date of last use: 08/2021, marijuana and methamphetamine do you feel safe at home: Yes EXAM Physical Exam Narrative Exam Narrative: 48-year-old female no acute distress vital signs stable afebrile. Pulse ox 9 9% on room air no signs hypoxia. H EENT exam moist mucous membranes. Posterior pharynx unremarkable. Pupils round reactive light. Neck nontender no lymphadenopathy. No meningismus. Lungs clear to auscultation bilaterally. No rales, rhonchi or wheezing. Equal symmetrical. Heart regular rhythm rate about 80 no murmur. Chest wall ribs nontender. Back nontender. Abdomen soft nontender. Moving all 4 extremities. Nontender no edema. Normal range of motion. Normal strength. She is awake and alert. No focal motor deficits. Const Vital Signs: 07/13/24 18:25 Temperature 97.2 F L Temperature Source Temporal Pulse Rate 83 Respiratory Rate 17 Blood Pressure 137/72 H Blood Pressure Mean 93 Pulse Ox 99 Oxygen Delivery Method Room Air Positive well nourished and well developed; Negative for cachectic or contractures General Appearance ED: well developed and NAD; Negative for cachectic, cont ractures, cyanotic, diaphoretic or pallor Nutritional Appearance: Negative for cachectic HEENT Reports moist mucous membranes normocephalic and atraumatic Throat: posterior oropharynx normal Eyes PERRL and EOMs intact bilaterally General Eye ED: Negative for pale conjunctiva or scleral icterus Neck no lymphadenopathy, supple and no meningeal signs General: anterior neck swelling; Negative for lymphadenopathy Resp normal respiratory effort and clear to auscultation bilaterally Effort and Inspection: Negative for retractions Auscultation: Negative for rales, rhonchi, wheezes or diminished lung sounds Cardio S1 normal heart sound, S2 normal heart sound and no murmurs Rate: regular rate Rhythm: regular rhythm GI non-tender, non-distended and no masses Auscultation: normoactive bowel sounds Palpation: soft; Negative for tender or guarding Back/Spine no CVA tenderness and normal ROM General Back: Negative for CVA tenderness Cervical Spine: Negative for cervical spine tenderness Thoracic Spine / Upper Back: Negative for thoracic spinal tenderness Lumbar Spine / Lower Back: Negative for lumbar spinal tenderness Sacrum: Negative for tenderness Extremity normal to inspection and full ROM General Extremety ED: Negative for cyanosis, tenderness or other findings General Extremity: Negative for cyanosis or other findings Neuro oriented x3 and CN's II-XII intact bilaterally Sensorium / Orientation: alert, oriented to person, oriented to place and oriented to time; Negative for orientation impaired or lethargic Motor Exam: strength 5/5 throughout; Negative for general weakness or strength abnormal Psych mental status grossly normal Skin General Skin Exam: Negative for jaundice or pallor Lesions: no lesions Rashes: no rashes MDM MDM MDM Narrative Medical decision making narrative: 48-year-old female URI symptoms. Posterior pharynx benign no strep. Well- hydrated. Lungs are clear. She does not need any labs. She does not need a chest x-ray. She is comfortable with not doing viral testing. Fluids and rest. Tylenol Motrin. Follow-up as needed. Family members at home with same. History & Record Review Discussion w/independent historian: Patient Discharge Plan Triage Chief Complaint: Cold Sx ED Provider: Donald Villanueva Dx/Rx/DC Orders Clinical Impression: Viral URI Instructions: ED URI, Viral, No Abx (Adult) Prescriptions: No Action lactulose 20 gram/30 mL solution 30 g PO TID Qty: 3000 2RF (DME) pen needle, diabetic [BD Ultra-Fine Angeles Pen Needle] 32 gauge x 5/32 needle See Rx Instructions .Route Qty: 200 5RF Rx Instructions: 4x/day omeprazole 40 mg capsule,delayed release(DR/EC) 40 mg PO DAILY Qty: 90 3RF budesonide-formoterol [Symbicort] 80-4.5 mcg/actuation HFA aerosol inhaler 1 inh INHALATION Q12H PRN (Reason: SOB) Rx Instructions: One inhalation twice daily. albuterol sulfate 90 mcg/actuation HFA aerosol inhaler 1 inh INHALATION DIRECTED Qty: 8.5 1RF Rx Instructions: 2 puffs every 4 hours as needed for shortness of breath or wheezing. atorvastatin 10 mg tablet 10 mg PO QHS Qty: 90 1RF (DME) True Metrix Glucose Test Strip Strip See Rx Instructions .Route Qty: 100 5RF Rx Instructions: TID (DME) FreeStyle Norberto 2 Sensor Kit See Rx Instructions .Route Qty: 2 5RF Rx Instructions: 1 sensor q 14 days insulin aspart U-100 [Novolog U-100 Insulin aspart] 100 unit/mL solution 50 unit subcut DAILY Qty: 50 1RF Rx Instructions: via insulin pump (DME) lancets [Accu-Chek Softclix Lancets] Misc See Rx Instructions .Route Qty: 100 3RF Rx Instructions: 3 per day (DME) Accu-Chek Guide test strips Strip See Rx Instructions .Route Qty: 100 1RF Rx Instructions: test 3 time daily (DME) Accu-Chek Guide test strips Strip See Rx Instructions .Route Qty: 100 5RF Rx Instructions: test 3 time daily Primary Care Provider: Alanna Almonte Referrals: Alanna Almonte MD [Primary Care Provider] - 1 Week if not improving Activity Restrictions/Additional Instructions: Plenty of fluids and rest. Alternate Tylenol and Motrin for body aches and fever. Follow-up with your doctor if not improving or return if worse. Print Language: Chinese Disposition Disposition: Home, Self Care
== END 2024-07-13 18:56 | disposition home or self-care (01) ==
LOC: ED 18:49
PROVIDERS: Emergency Provider Emergency Medicine; PCP Internal Medicine; Visit Provider Emergency Medicine
DX: J06.9 Acute upper respiratory infection, unspecified (principal); E11.9 Type 2 diabetes mellitus without complications; Z79.4 Long term (current) use of insulin; E78.5 Hyperlipidemia, unspecified; K21.9 Gastro-esophageal reflux disease without esophagitis; J45.909 Unspecified asthma, uncomplicated; Z87.891 Personal history of nicotine dependence; Z79.899 Other long term (current) drug therapy
CPT/HCPCS: 99282

== ENCOUNTER → 2024-10-18 | Outpatient (CLI) | payer MEDICAID, SELFPAY ==
[2024-10-18 10:28] LABS: ALB/GLOB Ratio 1.5 RATIO (0.9-2.4); AST(SGOT) 25 U/L (<=31); Alanine Aminotransfer ALT/SGPT 12 U/L (<=34); Albumin, Serum 4.2 g/dL (3.5-5.0); Alkaline Phosphatase 56 U/L (35-104); Anion Gap 12 (5-15); BUN 15 mg/dL (4-19); BUN/Creat Ratio 20.7 RATIO (10-20); Calcium,Total 9.6 mg/dL (7.6-11.0); Carbon Dioxide 24.7 mmol/L (21.0-32.0); Chloride 100 mmol/L (98-108); Cholesterol 230 mg/dL (<=200); Creatinine, Serum 0.73 mg/dL (0.70-1.20); EST Glomerular Filtration Rate 101 (>60); Globulin 2.8 g/dL (2.2-4.2); Glucose 103 mg/dL (70-99); High Density Lipoprotein 85 mg/dL; Low Density Lipoprotein Calc. 125 mg/dL; Potassium 4.5 mmol/L (3.3-5.1); Protein, Total 6.9 g/dL (5.9-8.4); Sodium Level 136 mmol/L (133-145); Total Bilirubin 0.38 mg/dL (0.00-1.30); Triglycerides 98 mg/dL; Very Low Density Lipoprotein 20 mg/dL (5-40); Vitamin D,25 Hydroxy 18.2 ng/mL (30-100)
[2024-10-18 10:38] LABS: Microalbumin,Random Urine < 12.0 mg/L (NO RANGE EST.); Microalbumin:Creatinine Ratio UNABLE TO CALCULATE mg/g CRE
== END | disposition home or self-care (01) ==
LOC: LAB 08:57
PROVIDERS: PCP Internal Medicine; Referring Provider Nurse Practitioner Family; Visit Provider Nurse Practitioner Family
DX: E11.65 Type 2 diabetes mellitus with hyperglycemia (principal); Z79.4 Long term (current) use of insulin
CPT/HCPCS: 36415; 80053; 80061; 82043; 82306; 82570; 84443

== ENCOUNTER 2024-11-04 18:37 | Emergency (ER) | payer MEDICAID, SELFPAY ==
[2024-11-04 18:37] VITALS: BP 122/90; PULSE 81; RESP 18; TEMP 36.9; O2SAT 96; BMI 28.8
--- NOTE | 2024-11-04 19:30 | CT_ITS ---
PROCEDURE: ABDOMEN/PELVIS W IV CONT ONLY 11/04/2024 REASON FOR EXAM: CONSTIPATION TECHNIQUE: Abdomen and pelvis CT with intravenous contrast. Coronal and Sagittal reconstruction series were provided. PATIENT PREPARATION: Per protocol ORAL CONTRAST TYPE: None. AMOUNT: mL One or more dose reduction techniques were used (e.g., Automated exposure control, adjustment of the mA and/or kV according to patient size, use of iterative reconstruction technique. FINDINGS: Lung bases: Unremarkable. Liver: Normal size. No mass. Gallbladder: Surgically absent. Spleen: Normal size. Pancreas: Normal size without evidence of mass surrounding inflammation or ductal dilation. Adrenals: Unremarkable. Kidneys: Normal renal sizes. No hydronephrosis. Bladder: Unremarkable. Reproductive Organs: Unremarkable. Bowel: No bowel obstruction. Appendix: The appendix is not identified. There is no inflammatory process identified in the right lower quadrant to suggest appendicitis. Lymph nodes: Unremarkable. Vasculature: The abdominal aorta and IVC are normal. Peritoneum / Retroperitoneum: Unremarkable. Bones: Bilateral pars defects of the L5 vertebra consistent with L5 spondylolysis. 2 mm of anterolisthesis of L5 on S1 consistent with grade [address]/Abdomen/Pelvis W IV Cont ONLY IMPRESSION: NO ACUTE FINDINGS AT THE ABDOMEN OR PELVIS ON CONTRAST-ENHANCED CT. Reading Location: [place]
--- NOTE | 2024-11-04 19:33 | EX.ED.DYSGE1 ---
HPI History of Present Illness Chief Complaint: Abd Pain Narrative Narrative: Chief complaint and HPI: Constipation and abdominal bloating. 49-year-old female who is a type II diabetic with history of GERD and IBS presents for evaluation of constipation and abdominal bloating. Patient states that she has had years of constipation and abdominal bloating. She has seen Dr. Nixon in the past. She states that he did a colonoscopy and put her on lactulose. She states she continues to have the symptoms without any improvement. She has not followed back up with Dr. Nixon or PCP. Patient states that she is tired of this feeling which is why she presents today. She denies any fever, chills, shortness of breath, chest pain, nausea, vomiting, dysuria. States that her last bowel movement was today. On chart review, patient had a colonoscopy on 05/28/[address] Nixon. Preparation of the colon was poor. She had a large amount of stool in the colon precluding visualization. Review of systems: See HPI Medications: As listed on the chart Allergies: As listed on the chart PFSH: Per chart Vital signs: As listed on the chart. Reviewed. Physical exam: Gen: A&O x3, NAD Head: Normocephalic, atraumatic Eyes: No sclera icterus, conjunctiva clear ENT: Moist mucous membranes Neck: Trachea midline, No JVD CV: RRR, no murmurs, no peripheral edema Resp: Lungs CTA BL, no w/r/c GI: Abd soft, non-distended, non-tender, no r/r/g, insulin reader : No CVA tenderness Musc: Full ROM, no deformity Skin: Warm, dry Neuro: Alert, oriented, grossly intact, sensation intact Psych: Cooperative, appropriate mood and affect [facility] Medical History (Updated 11/04/24 @ 22:[address] Manuel Gregory, DO) Alcohol use Hyperlipidemia Loss of hearing Wears glasses Wears dentures PTSD (post-traumatic stress disorder) Depression Anxiety Substance abuse Marijuana use Insulin dependent diabetes mellitus Migraine headache Dietary restriction History of IBS Gastric reflux Former smoker Asthma Leg cramps Home Medications ?Medication ?Instructions ?Recorded ?Last Taken ?Type albuterol sulfate 90 mcg/actuation 1 inh inhalation DIRECTED #8.5 07/08/23 Unknown Rx aerosol inhaler grams lactulose 20 gram/30 mL oral 30 g (45 mL) PO TID #3,000 mL 11/05/23 Unknown Rx solution pen needle, diabetic 32 gauge x #200 ea 12/17/23 Unknown Rx 32 (BD Ultra-Fine Angeles Pen Needle) blood sugar diagnostic (True #100 ea 02/17/24 Unknown Rx Metrix Glucose Test Strip) budesonide-formoterol HFA 80 1 inh inhalation Q12H PRN SOB 04/14/24 Unknown History mcg-4.5 mcg/actuation aerosol inhaler (Symbicort) insulin aspart U-100 100 unit/mL 50 unit (0.5 mL) subcut DAILY #50 05/06/24 Unknown Rx subcutaneous solution (Novolog mL U-100 Insulin aspart) lancets (Accu-Chek Softclix #100 ea 05/06/24 Unknown Rx Lancets) omeprazole 40 mg capsule,delayed 40 mg PO DAILY #90 caps 05/12/24 Unknown Rx release blood sugar diagnostic (Accu-Chek #100 ea 06/27/24 Unknown Rx Guide test strips) blood sugar diagnostic (Accu-Chek #100 ea 06/27/24 Unknown Rx Guide test strips) sertraline 50 mg tablet mg PO 10/12/24 Unknown History atorvastatin 10 mg tablet 10 mg PO QHS #90 tabs 10/26/24 Unknown Rx polyethylene glycol 3350 17 17 g PO DAILY 30 days #510 grams 11/04/24 Unknown Rx gram/dose oral powder (Miralax) Allergy/AdvReac Type Severity Reaction Status Date / Time No Known Allergies Allergy Verified 11/04/24 18:39 Family History Father Alcoholism Myocardial infarction Heart disease Hypertension Hyperlipidemia Mother Alcoholism Anxiety Depression Heart disease Daughter Asthma Depression ADHD Grandmother Arthritis Diabetes Blood clot in vein Hypertension CVA (cerebral vascular accident) Uncle Colon cancer Grandfather Myocardial infarction Heart disease Surgical History S/P cholecystectomy H/O dilation and curettage Hx of colonoscopy Hx of abdominal surgery History of hysterectomy Social History household members: spouse current occupational status: employed 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 - early [employer] Smoking Status: Former smoker quit date: 10/18/22 pack-years: 50 Electronic Cigarette Use: not used alcohol intake: former year quit: 2021 substance use type: former substance user Date of last use: 08/2021, marijuana and methamphetamine do you feel safe at home: Yes EXAM Physical Exam Const Vital Signs: 11/04/24 18:37 11/04/24 20:50 11/04/24 22:00 Temperature 98.4 F Temperature Source Oral Pulse Rate 81 71 65 Respiratory Rate 18 16 14 Blood Pressure 122/90 H 96/61 102/73 Blood Pressure Mean 100 72 82 Pulse Ox 96 99 98 Oxygen Delivery Method Room Air Room Air Room Air MDM MDM MDM Narrative Medical decision making narrative: 49-year-old female who is a type II diabetic with history of GERD and IBS presents for evaluation of constipation and abdominal bloating. Symptoms are chronic. History was taken by patient as well as medical record. Differential diagnosis includes but is not limited to constipation, gastroparesis, IBS, suspect less likely colitis, UTI, intra-abdominal pathology. Given that patient has had poor prep with prior colonoscopies CT abdomen pelvis ordered to better assess for intra-abdominal process. Laboratory workup ordered. CBC without leukocytosis or anemia. CMP unremarkable. Lipase unremarkable. UA negative for UTI. CT abdomen pelvis shows no acute intra-abdominal pathology. Patient has spinal changes. Not endorsing any low back pain. At this point in time, no clear etiology for patient's symptoms. May be secondary to gastroparesis due to her diabetes as well as her IBS. Patient already takes lactulose. Will put her on MiraLAX to add fiber. Follow-up with PCP and GI. She was updated on all the results and the plan. Patient states that people have mentioned gastroparesis in the past for cause of her symptoms but she does not think she has this. Impression: 1. Constipation 2. Abdominal bloating 3. History of diabetes Lab Data Labs: Laboratory Results - last 24 hr 11/04/24 11/04/24 11/04/24 18:57 19:36 20:04 WBC 6.6 RBC 4.41 Hgb 13.6 Hct 39.9 MCV 90.5 MCH 30.8 MCHC 34.1 RDW Std Deviation 41.5 RDW Coeff of Zac 12.5 Plt Count 322 MPV 10.4 Immature Gran % (Auto) 0.200 Neut % (Auto) 47.7 Lymph % (Auto) 43.9 H Early % (Auto) 6.2 Eos % (Auto) 1.5 Baso % (Auto) 0.5 Absolute Neuts (auto) 3.2 Absolute Lymphs (auto) 2.89 Nucleated RBC % 0 Sodium 137 Potassium 4.4 Chloride 101 Carbon Dioxide 24.5 Anion Gap 12 BUN 13 Creatinine 0.81 Estim Creat Clear Calc 71.35 Est GFR (MDRD) Non-Af 90 BUN/Creatinine Ratio 16.1 Glucose 103 H Calcium 10.0 Total Bilirubin 0.30 AST 22 ALT 10 Alkaline Phosphatase 59 Total Protein 7.1 Albumin 4.2 Globulin 2.9 Albumin/Globulin Ratio 1.4 Lipase 36 Urine Color Urine Clarity Urine pH Ur Specific [place] Urine Protein Urine Glucose (UA) Urine Ketones Urine Occult Blood Urine Nitrite Urine Bilirubin Urine Urobilinogen Ur Leukocyte Esterase Urine RBC Urine WBC Ur Squamous Epith Cells Urine Bacteria Urine Mucus POC Glucose 66 L 81 11/04/24 21:20 WBC RBC Hgb Hct MCV MCH MCHC RDW Std Deviation RDW Coeff of Zac Plt Count MPV Immature Gran % (Auto) Neut % (Auto) Lymph % (Auto) Early % (Auto) Eos % (Auto) Baso % (Auto) Absolute Neuts (auto) Absolute Lymphs (auto) Nucleated RBC % Sodium Potassium Chloride Carbon Dioxide Anion Gap BUN Creatinine Estim Creat Clear Calc Est GFR (MDRD) Non-Af BUN/Creatinine Ratio Glucose Calcium Total Bilirubin AST ALT Alkaline Phosphatase Total Protein Albumin Globulin Albumin/Globulin Ratio Lipase Urine Color Straw Urine Clarity Clear Urine pH 7.0 Ur Specific [place] 1.010 Urine Protein 15 H Urine Glucose (UA) Normal Urine Ketones Negative Urine Occult Blood Negative Urine Nitrite Negative Urine Bilirubin Negative Urine Urobilinogen Normal Ur Leukocyte Esterase Negative Urine RBC 0 SEEN Urine WBC 0 SEEN Ur Squamous Epith Cells 0-5 SEEN Urine Bacteria 0 SEEN Urine Mucus 0 SEEN POC Glucose Radiography Diagnostic Testing: Clinical Impression(s) from Imaging Studies Abdomen/Pelvis CT 11/04/24 19:30 IMPRESSION: NO ACUTE FINDINGS AT THE ABDOMEN OR PELVIS ON CONTRAST-ENHANCED CT. Reading Location: [facility] Discharge Plan Triage Chief Complaint: Abd Pain Other Complaint: Constipation ED Provider: Manuel Gregory Dx/Rx/DC Orders Clinical Impression: Constipation, Abdominal pain Instructions: ED Abdominal Pain Unkn Cause Fem, ED Constipation (Adult) Prescriptions: New polyethylene glycol 3350 [Miralax] 17 gram/dose powder 17 g PO DAILY 30 Days Qty: 510 0RF No Action lactulose 20 gram/30 mL solution 30 g PO TID Qty: 3000 2RF (DME) pen needle, diabetic [BD Ultra-Fine Angeles Pen Needle] 32 gauge x 5/32 needle See Rx Instructions .Route Qty: 200 5RF Rx Instructions: 4x/day omeprazole 40 mg capsule,delayed release(DR/EC) 40 mg PO DAILY Qty: 90 3RF sertraline 50 mg tablet PO budesonide-formoterol [Symbicort] 80-4.5 mcg/actuation HFA aerosol inhaler 1 inh INHALATION Q12H PRN (Reason: SOB) Rx Instructions: One inhalation twice daily. albuterol sulfate 90 mcg/actuation HFA aerosol inhaler 1 inh INHALATION DIRECTED Qty: 8.5 1RF Rx Instructions: 2 puffs every 4 hours as needed for shortness of breath or wheezing. (DME) True Metrix Glucose Test Strip Strip See Rx Instructions .Route Qty: 100 5RF Rx Instructions: TID insulin aspart U-100 [Novolog U-100 Insulin aspart] 100 unit/mL solution 50 unit subcut DAILY Qty: 50 1RF Rx Instructions: via insulin pump (DME) lancets [Accu-Chek Softclix Lancets] Misc See Rx Instructions .Route Qty: 100 3RF Rx Instructions: 3 per day (DME) Accu-Chek Guide test strips Strip See Rx Instructions .Route Qty: 100 1RF Rx Instructions: test 3 time daily (DME) Accu-Chek Guide test strips Strip See Rx Instructions .Route Qty: 100 5RF Rx Instructions: test 3 time daily atorvastatin 10 mg tablet 10 mg PO QHS Qty: 90 1RF Primary Care Provider: Alanna Almonte Referrals: Alanna Almonte MD [Primary Care Provider] - 3-5 Days William Nixon DO [Med Staff - Active Staff] - 3-5 Days Activity Restrictions/Additional Instructions: Follow-up with PCP and Dr. Nixon. Take daily MiraLAX. Print Language: Mohawk Disposition Disposition: Home, Self Care
[2024-11-04 19:43] LABS: Absolute Lymphocyte Count 2.89 X10^3/uL (0.83-4.51); Absolute Neutrophil Count 3.2 X10^3/uL (2.0-7.7); Basophil# 0.03 X10^3/uL; Basophil% 0.5 % (0-1); Eosinophils% 1.5 % (0-5); Hematocrit 39.9 % (37-47); Hemoglobin 13.6 g/dL (12.0-15.0); Lymphocyte # 2.89 X10^3/ul (0.83-4.51); Lymphocyte % 43.9 % (19-41); Mean Corp Hgb Conc 34.1 g/dL (32-36); Mean Corpuscular Hgb 30.8 pg (27.0-32.0); Mean Corpuscular Volume 90.5 fL (81-99); Mean Platelet Vol. 10.4 fl (6.2-12.0); Monocyte# 0.41 X10^3/uL; Monocyte% 6.2 % (0-10); NRBC Flagged by Analyzer 0 % (0-5); Neutrophil # 3.15 X10^3/uL (2.7-7.7); Neutrophil % 47.7 % (47-70); Platelet Count 322 K/mm3 (150-450); RBC Distribution Width CV 12.5 % (11.6-14.6); RBC Distribution Width SD 41.5 fl (35.1-43.9); Red Blood Count 4.41 M/mm3 (4.2-5.4); White Blood Count 6.6 K/mm3 (4.4-11.0)
[2024-11-04 19:55] LABS: Bedside Glucose 66 mg/dL (74-106)
[2024-11-04 20:07] LABS: Lipase 36 U/L (13-75)
[2024-11-04 20:12] LABS: ALB/GLOB Ratio 1.4 RATIO (0.9-2.4); AST(SGOT) 22 U/L (<=31); Alanine Aminotransfer ALT/SGPT 10 U/L (<=34); Albumin, Serum 4.2 g/dL (3.5-5.0); Alkaline Phosphatase 59 U/L (35-104); Anion Gap 12 (5-15); BUN 13 mg/dL (4-19); BUN/Creat Ratio 16.1 RATIO (10-20); Carbon Dioxide 24.5 mmol/L (21.0-32.0); Chloride 101 mmol/L (98-108); Creatinine, Serum 0.81 mg/dL (0.70-1.20); EST Glomerular Filtration Rate 90 (>60); Estimated Creatinine Clearance 71.35 ml/min (50-250); Globulin 2.9 g/dL (2.2-4.2); Glucose 103 mg/dL (70-99); Potassium 4.4 mmol/L (3.3-5.1); Protein, Total 7.1 g/dL (5.9-8.4); Sodium Level 137 mmol/L (133-145)
[2024-11-04 20:22] LABS: Bedside Glucose 81 mg/dL (74-106)
[2024-11-04 20:50] VITALS: BP 96/61; PULSE 71; RESP 16; O2SAT 99
[2024-11-04 21:53] LABS: Bacteria 0 SEEN /hpf (None Seen); Mucous, Urine 0 SEEN /hpf (<or=2+); Red Blood Cells-Urine 0 SEEN /hpf (0-5); White Blood Cells 0 SEEN /hpf (0-5)
[2024-11-04 22:00] VITALS: BP 102/73; PULSE 65; RESP 14; O2SAT 98
[2024-11-04 22:01] LABS: Color, Urine Straw (Yellow); Glucose, Dipstick Normal (Normal); Ketone-Dipstick Negative (Negative); Leukocyte Esterase-Dipstick Negative /ul (Negative); Nitrite-Dipstick Negative (Negative); Occult Blood-Urine Negative /ul (Negative); Protein-Dipstick 15 mg/dl (Negative); Urine Bilirubin Dipstick Negative (Negative); Urine Clarity Clear (Clear); Urine Urobilinogen Normal (Normal)
[2024-11-04 22:30] LABS: Squamous Epithelial Cells - UA 0-5 SEEN /hpf (5-10)
[2024-11-04 22:57] VITALS: BP 104/77; PULSE 68; RESP 18; TEMP 36.8; O2SAT 99
== END 2024-11-04 22:58 | disposition home or self-care (01) ==
PROVIDERS: Emergency Provider Surgery; PCP Internal Medicine; Visit Provider Surgery
DX: K59.00 Constipation, unspecified (principal); E11.9 Type 2 diabetes mellitus without complications; Z79.4 Long term (current) use of insulin; E78.5 Hyperlipidemia, unspecified; K21.9 Gastro-esophageal reflux disease without esophagitis; K58.9 Irritable bowel syndrome, unspecified; F32.A Depression, unspecified; F41.9 Anxiety disorder, unspecified; F43.10 Post-traumatic stress disorder, unspecified; J45.909 Unspecified asthma, uncomplicated; Z90.49 Acquired absence of other specified parts of digestive tract; Z79.899 Other long term (current) drug therapy; Z87.891 Personal history of nicotine dependence
CPT/HCPCS: 74177; 80053; 81001; 82962; 83690; 85025; 99283; Q9967

== ENCOUNTER → 2024-12-13 | Outpatient (CLI) | payer MEDICAID, SELFPAY ==
[2024-12-15 12:08] LABS: ANTINUCLEAR ANTIBODIES DIRECT Negative (Negative); Anti-Centromere B Ab <0.2 AI (0.0-0.9); Anti-Chromatin <0.2 AI (0.0-0.9); Anti-Jo <0.2 AI (0.0-0.9); Anti-Scleroderma-70 AB <0.2 AI (0.0-0.9); Anti-dsDNA Ab 2 IU/mL (0-9); RNP Ab <0.2 AI (0.0-0.9); SJOGREN'S Anti-SS-A test < 0.2 AI (0.0-0.9); SJOGREN'S Anti-SS-B test < 0.2 AI (0.0-0.9); Smith Ab <0.2 AI (0.0-0.9)
== END | disposition home or self-care (01) ==
LOC: LAB 16:00
PROVIDERS: PCP Internal Medicine; Referring Provider Internal Medicine; Visit Provider Internal Medicine
DX: R10.9 Unspecified abdominal pain (principal); G89.29 Other chronic pain; L60.9 Nail disorder, unspecified
CPT/HCPCS: 36415; 86038; 86225; 86235

== ENCOUNTER → 2025-01-03 | Outpatient (CLI) | payer MEDICAID, SELFPAY ==
--- NOTE | 2025-01-03 12:30 | BI_ITS ---
EXAM: SCRN MAMM (CAD)W/YUVAL BILAT DATE: 01/03/2025 CLINICAL HISTORY: F, Age 49 y/o , SCREENING No family history. BREAST CANCER RISK ASSESSMENT: Not assessed. TECHNIQUE: Bilateral screening digital breast tomosynthesis with 2D and 3D images. Computer aided detection. COMPARISON: Baseline examination. FINDINGS: TISSUE DENSITY: The breast tissue is almost entirely fatty. Bilateral Breast Mammographic Findings: No significant masses, calcifications or other abnormalities are identified. BI/SCRN MAMM (CAD)W/YUVAL BILAT IMPRESSION: No mammographic abnormality is seen. OVERALL FINAL ASSESSMENT BI-RADS 1: NEGATIVE. RECOMMEND ANNUAL MAMMOGRAPHIC SCREENING. RECOMMENDATION: Routine annual follow-up in 1 Year A letter with findings and recommendations will be mailed to the patient. Reading Location: [place] [id number]
== END | disposition home or self-care (01) ==
LOC: OPBI 12:21
PROVIDERS: PCP Internal Medicine; Referring Provider Internal Medicine; Visit Provider Internal Medicine
DX: Z12.31 Encounter for screening mammogram for malignant neoplasm of breast (principal); M54.2 Cervicalgia; M25.511 Pain in right shoulder
CPT/HCPCS: 77063; 77067; 97110

== ENCOUNTER → 2025-01-10 | Outpatient (CLI) | payer MEDICAID, SELFPAY ==
--- NOTE | 2025-01-10 16:10 | RAD_ITS ---
PROCEDURE: ABDOMEN SINGLE VIEW 01/10/2025 REASON FOR EXAM: CONSTIPATION, ABD PAIN TECHNIQUE: ABDOMEN SINGLE VIEW COMPARISON: CT scan on 11/04/2024. FINDINGS: Moderate amount of fecal residue in the large bowels. Normal visualized lung bases. There is an unremarkable bowel gas pattern. There is no demonstrated free abdominal air. Normal visualized liver. Normal visualized spleen. Normal visualized kidneys. The soft tissue structures of the pelvis are unremarkable. Mild diffuse spondylosis. RAD/Abdomen Single View IMPRESSION: Moderate amount of fecal residue in the large bowels. Reading Location: [facility]
== END | disposition home or self-care (01) ==
LOC: RAD 16:05
PROVIDERS: PCP Internal Medicine
DX: K59.01 Slow transit constipation (principal); R14.0 Abdominal distension (gaseous); M54.2 Cervicalgia; M25.511 Pain in right shoulder
CPT/HCPCS: 74018; 97110

== ENCOUNTER 2025-01-26 16:30 | Outpatient (RCR) | payer MEDICAID, SELFPAY ==
--- NOTE | 2024-12-27 09:01 | HP.PTEVAL_ITS ---
Patient's Visit Information Visit Information Visit Information: FIORDALIZA OLSEN is a 49 year old F referred to Physical Therapy by [facility] with a diagnosis of CERVICALGIA. Date of Evaluation: 12/27/24 Physical Therapist: Haroldo Yu PT, Cert MDT, OCS Visit Plan Frequency: 2x /Week Duration: 4 Weeks Plan: PT INTERVENTIONS CHASE EX'S ,POSTURAL EX'S ,STRENGTHENING ,ACTIVITY MODIFICATION AND MODALTIES Subjective Subjective: This 49 y/o female presents to physical therapy with cervicalgia. Patient has cervical radiculopathy affecting right arm many. Location of pain neck shoulder to elbow. Described as sharp and ache pain, Symptoms worse in past week in arm .Seen DR and recommended PT. No medication. X-rays showed DDD mild. Aggravating factors flexion ,turning neck ,lifting OH. Alleviating factors rest C/O paresthesia/tingling in hands. Denies CARABALLO/nausea/tinnitus. No trauma. Patient sleeping okay. Patient condition affects QOL/function.Patient goals to decrease pain. SOCAIL: VOCATION: unemployed Pain Right Neck: Pain Intensity (Out of 10): 4 Pain Intensity Range: 10 Right Shoulder: Pain Intensity (Out of 10): 3 Objective Objective: POSTURE: rounded shoulders head forward PALPATION: tender UT/levator NEURO: c/o paresthesia/tingling hands ,reflexes C5-6-7 1/ CERICAL: flexion min loss ,extension WFL ,rotation WFL ,lateral flexion WFL ,rotation min loss ,rectraction min loss AROM: BUE WFL MMT: 4/5 ,except shoulders 4-/5 Special Tests C/S Radiculapathy - Left Upper limb tension test: Negative C/S Radiculapathy - Right Upper limb tension test: Negative C/S Radiculapathy - Left Spurlings: Negative C/S Radiculapathy - Right Spurlings: Positive C/S Radiculapathy - Left Cervical distraction: Negative C/S Radiculapathy - Right Cervical distraction: Negative C/S Radiculapathy - Left Relief test: Negative C/S Radiculapathy - Right Relief test: Negative Sharp Qasim: Negative Vertebral Artery Test: Negative Alar Ligament Test: Negative Cervical Sitting: Protrusion - Mechanical Response: No effect Cervical Sitting: Protrusion - Symptoms During Testing: Increases Cervical Sitting: Protrusion - Symptoms After Testing: No worse Cervical Sitting: Retraction - Mechanical Response: No effect Cervical Sitting: Retraction - Symptoms During Testing: Increases Cervical Sitting: Retraction - Symptoms After Testing: No worse Cervical Sitting: Retraction-Extension - Mechanical Response: No effect Cerv Sitting: Retraction-Extension - Symptoms During Testing: Increases Cerv Sitting: Retraction-Extension - Symptoms After Testing: Worse Cervical Sitting: Sidebend Right - Mechanical Response: No effect Cervical Sitting: Sidebend Right - Symptoms During Testing: Increases Cervical Sitting: Sidebend Right - Symptoms After Testing: No worse Cervical Sitting: Sidebend Left - Mechanical Response: No effect Cervical Sitting: Sidebend Left - Symptoms During Testing: Increases Cervical Sitting: Sidebend Left - Symptoms After Testing: No worse Cervical Sitting: Rotation Right - Mechanical Response: No effect Cervical Sitting: Rotation Right - Symptoms During Testing: Increases Cervical Sitting: Rotation Right - Symptoms After Testing: No worse Cervical Sitting: Rotation Left - Mechanical Response: No effect Cervical Sitting: Rotation Left - Symptoms During Testing: Increases Cervical Sitting: Rotation Left - Symptoms After Testing: No worse Cervical Sitting: Flexion - Mechanical Response: No effect Cervical Sitting: Flexion - Symptoms During Testing: Increases Cervical Sitting: Flexion - Symptoms After Testing: Worse Balance/Special Test Scores Oswestry Neck Score: 18 Goals Goal 1:: This patient to be I with HEP Goal Time Frame: 4-6 Weeks Goal 2:: Patient to improve cervical ROM for function of recovery to improve driving Goal Time Frame: 4-6 Weeks Goal 3:: Patient to improve neck oswestry score by 5 points to improve QOL. Goal Time Frame: 4-6 Weeks Goal 4:: Patient to demonstrate to 50% improvement with less pain and improved function Goal Time Frame: 4-6 Weeks Rehabilitation Potential Physical Therapy Diagnosis: This patient has possible derangement with symptoms worse with positioning and motion testing affects ADLS thus benefit from skilled PT Rehabilitation Potential: Good Anticipated Interventions Patient/Client Instruction: Educate patient on: Condition and Plan of Care For the Purpose of:: To decrease pain, To increase ROM, To improve muscle performance and motor function, To improve ability to perform ADL's, To increase tolerance to activity/condition/position, To improve ability of physical actions for home/community/work/leisure, To improve gait and locomotor functions, To imp rove health of tissue, To decrease soft tissue restriction and To increase flexibility/ROM Therapeutic Exercise to Include: Strength training, Postural training, Flexibilty training, Active ROM, Chase Exercises and Scapular Strength/Stabilization For the Purpose of:: To decrease pain, To increase ROM, To improve muscle performance and motor function, To improve ability to perform ADL's, To increase tolerance to activity/condition/position, To improve ability of physical actions for home/community/work/leisure, To improve health of tissue, To decrease soft tissue restriction, To increase flexibility/ROM and To improve tolerance to ADL's Text: Thank you for the opportunity to evaluate your patient. For Medicare and Medicare HMO plans, please review the plan of care and approve it. It will need to be FAXED BACK to us at [phone] for Medicare purposes. For Medicare only, by signing this I certify the plan of care. Please let me know if there are questions or concerns regarding this plan of care. Physician Signature: _Date:
--- NOTE | 2025-01-12 17:33 | HP.PTEVAL2_ITS ---
Patient's Visit Information Visit Information Visit Information: FIORDALIZA OLSEN is a 49 year old F referred to Physical Therapy by [facility] with a diagnosis of RIGHT SHOULDER PAIN. Date of Evaluation: 01/12/25 Physical Therapist: Haroldo Yu, PT, Cert MDT, OCS Visit Plan Frequency: 2x /Week Duration: 4 Weeks Plan: PT INTERVENTIONS RTC/SCAPULAR ,POSTURAL EX'S ,US/ESTIM /CP AND ACTIVITY MODIFICATION Subjective Subjective: This 49 y/o female presents to physical therapy with right shoulder pain.Patient right shoulder ~ 1 year which progressively worse. Aggravating factors night ,sweeping ,reaching behind back ,lifting OH. Alleviating factors rest ,heat . Location of pain global shoulder snapping ,sharp and stiffness. Pain affects sleeping. Pain in elbow. Occasionally paresthesia/tingling. Patient symptoms affects ADLS's and housework tasks. Patient has had imaging showed Moderate to moderately severe right acromioclavicular joint degenerative changes are seen, with marked associated joint space narrowing.No medication. Patient condtion affects QOL and function. SOCAIL: VOCATION: unemployed Pain Right Shoulder: Intensity: 7 Pain Intensity Range: 10 Comment: worse .03/29 Objective Objective: POSTURE: rounded shoulders head forward PALAPTION: tender AC ,posterior deltoid NEURO: denies paresthesia/tingling ,reflexes C5-6-7 1/ AROM: shoulder flexion 160 ,abduction 160 degrees ,ER 90 degrees ,IR S1 MMT: ( peak force) infraspinatus 5.8 ,7.1 ,supraspinatus 10.1 pain Special Tests Empty Can - SS: Positive Neer - Impingement: Positive Felder Josué - Impingement: Positive Goals Goal 1:: Patient to be I with HEP Goal Time Frame: 4-6 Weeks Goal 2:: Patient to improve peak force 5-10 # strength to improve function and ADLS Goal Time Frame: 4-6 Weeks Goal 3:: Patient to improve quick dash by 3-5 points to improve QOL Goal Time Frame: 4-6 Weeks Goal 4:: Patient to demonstrate by 40 % improvement to improve QOL and function Goal Time Frame: 4-6 Weeks Rehabilitation Potential Physical Therapy Diagnosis: This patient has right shoulder pain tendonitis with mod/severe OA AC with pain and weakness impairs ADLS and housework tasks thus benefit from skilled PT Rehabilitation Potential: Fair Anticipated Interventions Patient/Client Instruction: Educate patient on: Condition and Plan of Care For the Purpose of:: To decrease pain, To increase ROM, To improve muscle performance and motor function, To improve ability to perform ADL's, To increase tolerance to activity/condition/position, To improve ability of physical actions for home/community/work/leisure, To improve health of tissue, To decrease soft tissue restriction and To increase flexibility/ROM Therapeutic Exercise to Include: Strength training, Postural training, Flexibilty training, Active ROM and Scapular Strength/Stabilization For the Purpose of:: To decrease pain, To increase ROM, To improve muscle performance and motor function, To improve ability to perform ADL's, To increase tolerance to activity/condition/position, To improve ability of physical actions for home/community/work/leisure, To improve health of tissue, To decrease soft tissue restriction and To increase flexibility/ROM TENS: Yes IF ES: Yes Cryotherapy (ice pack, ice massage): Yes Thermo therapy (hot pack): Yes Ultrasound (thermal/non thermal): Yes For the Purpose of:: To decrease pain, To decrease swelling/inflammation, To increase ROM, To improve health of tissue and To decrease soft tissue r estriction text: Thank you for the opportunity to evaluate your patient. For Medicare and Medicare HMO plans, please review the plan of care and approve it. It will need to be FAXED BACK to us at [phone] for Medicare purposes. For Medicare only, by signing this I certify the plan of care. Please let me know if there are questions or concerns regarding this plan of care. Physician Signature: Date:
--- NOTE | 2025-01-26 17:18 | HP.PTREVAL_ITS ---
Re-Evaluation Intro: GEMMA Mesa, It has been my pleasure to treat FIORDALIZA OLSEN over the last 7 visits for CERVICALGIA. Please see the progress note below for an update on the physical therapy plan of care! Subjective Subjective: Patient neck ex's at home Flexion irritates shoulder Tension CARAB[place]O Objective Objective/Function: POSTURE: rounded shoulders head forward PALPATION: tender UT/levator NEURO: c/o paresthesia/tingling hands ,reflexes C5-6-7 07/22 CERICAL: flexion min loss ,extension WFL ,rotation WFL ,lateral flexion WFL ,rotation min loss ,rectraction min loss AROM: BUE WFL MMT: / ,TRICEPS/WRSIT Plan Plan Plan: Requesting 8 more visits PT INTERVENTIONS CHASE EX'S ,POSTURAL EX'S ,STRENGTHENING ,ACTIVITY MODIFICATION AND MODALTIES Balance/Gait/Functional tests Balance/Special Test Scores Oswestry Neck Score: 18 Quick DASH Score: 38.6350 Goals Goals Goal 1:: This patient to be I with HEP Goal Time Frame: 4-6 Weeks Goal Progress: Progressing Goal 2:: Patient to improve cervical ROM for function of recovery to improve driving Goal Time Frame: 4-6 Weeks Goal Progress: Progressing Goal 3:: Patient to improve neck oswestry score by 5 points to improve QOL. Goal Time Frame: 4-6 Weeks Goal 4:: Patient to demonstrate to 70% improvement with less pain and improved function (new goal) Goal Time Frame: 4-6 Weeks Anticipated Interventions Anticipated Interventions Patient/Client Instruction: Educate patient on: Condition and Plan of Care For the Purpose of:: To decrease pain, To increase ROM, To improve muscle performance and motor function, To improve ability to perform ADL's, To increase tolerance to activity/condition/position, To improve ability of physical actions for home/community/work/leisure, To improve gait and locomotor functions, To improve health of tissue, To decrease soft tissue restriction and To increase flexibility/ROM Therapeutic Exercise to Include: Strength training, Postural training, Flexibilty training, Active ROM, Chase Exercises and Scapular St rength/Stabilization For the Purpose of:: To decrease pain, To increase ROM, To improve muscle performance and motor function, To improve ability to perform ADL's, To increase tolerance to activity/condition/position, To improve ability of physical actions for home/community/work/leisure, To improve health of tissue, To decrease soft tissue restriction, To increase flexibility/ROM and To improve tolerance to ADL's Re-Evaluation Ending Re-evaluation ending: Please do not hesitate to contact me at [phone] by phone or if you have questions or concerns regarding this new plan of care! Sincerely, Haroldo Yu, PT, Cert MDT, OCS
--- NOTE | 2025-01-26 17:19 | HP.PTRE(2) ---
Re-Evaluation Intro: GEMMA Mesa, It has been my pleasure to treat FIORDALIZA OLSEN over the last 4 visits for RIGHT SHOULDER PAIN. Please see the progress note below for an update on the physical therapy plan of care! Subjective Subjective: Patient pain worse [place] reaching behind back snapping Objective Objective/Function/Assessment: POSTURE: rounded shoulders head forward PALAPTION: tender AC ,posterior deltoid NEURO: denies paresthesia/tingling ,reflexes C5-6-7 07/22 AROM: shoulder flexion 160 ,abduction 160 degrees ,ER 90 degrees ,IR S1 MMT: ( peak force) infraspinatus 9,1 10.8 ,supraspinatus 10.1 pain Plan Plan Plan: REGUESTING MORE VISITS PT INTERVENTIONS RTC/SCAPULAR ,POSTURAL EX'S ,US/ESTIM /CP AND ACTIVITY MODIFICATION Goals Goals Goal 1:: Patient to be I with HEP Goal Time Frame: 4-6 Weeks Goal 2:: Patient to improve peak force 5-10 # strength to improve function and ADLS Goal Time Frame: 4-6 Weeks Goal 3:: Patient to improve quick dash by 3-5 points to improve QOL Goal Time Frame: 4-6 Weeks Goal 4:: Patient to demonstrate by 40 % improvement to improve QOL and function Goal Time Frame: 4-6 Weeks Anticipated Interventions Anticipated Interventions Patient/Client Instruction: Educate patient on: Condition and Plan of Care For the Purpose of:: To decrease pain, To increase ROM, To improve muscle performance and motor function, To improve ability to perform ADL's, To increase tolerance to activity/condition/position, To improve ability of physical actions for home/community/work/leisure, To improve health of tissue, To decrease soft tissue restriction and To increase flexibility/ROM Therapeutic Exercise to Include: Strength training, Postural training, Flexibilty training, Active ROM and Scapular Strength/Stabilization For the Purpose of:: To decrease pain, To increase ROM, To improve muscle performance and motor function, To improve ability to perform ADL's, To increase tolerance to activity/condition/position, To improve ability of physical actions for home/community/work/leisure, To improve health of tissue, To decrease soft tissue restriction and To increase flexibility/ROM TENS: Yes IF ES: Yes Cryotherapy (ice pack, ice massage): Yes Thermo therapy (hot pack): Yes Ultrasound (thermal/non thermal): Yes For the Purpose of:: To decrease pain, To decrease swelling/inflammation, To increase ROM, To improve health of tissue and To decrease soft tissue restriction Re-Evaluation Ending Re-evaluation ending: Please do not hesitate to contact me at [phone] by phone or if you have questions or concerns regarding this new plan of care! Sincerely, Haroldo Yu, PT, Cert MDT, OCS
== END 2025-01-26 19:00 | disposition home or self-care (01) ==
LOC: PT 16:30
PROVIDERS: PCP Internal Medicine; Referring Provider Physician Assistant; Visit Provider Physician Assistant
DX: M54.2 Cervicalgia (principal); M25.511 Pain in right shoulder
CPT/HCPCS: 97035; 97110; 97140; 97162; 97530